=== PATIENT | male | born 1965 | race Caucasian/White ===

== ENCOUNTER 2024-08-22 16:56 | Emergency (ER) | payer MEDICARE, SELFPAY ==
--- OUTSIDE RECORDS SUMMARY | 2024-07-16 15:15 | XMS_ITS | Encounter Summary ---
Author Organization Healthcare Address [address] [place] [address] Care Team Providers Care Measurement Department Chief Clerk Name Role Phone Iain Yuen MD Primary Care Provider [phone] Reason for Visit * Reason Comments Uveitis Encounter Details Date Type Department Care Team (Late st Contact Info) Description 07/16/2024 3:15 PM EDT Consult [facility] [address] [place] [address] Millie Kothari MD [address] [place] [address] Panuveitis of both eyes (Primary Dx); Retinal vasculitis of both eyes; Cystoid macular edema of both eyes Social History Tobacco Use Types Packs/Day Years Used Date Smoking Tobacco: Every Day Cigarettes 1 30 Passive Smoke Exposure: Current Smokeless Tobacco: Never Tobacco Cessation:Ready to Q uit: Not Asked; Counseling Given: Not Answered Alcohol Use Standard Drinks/Week Comments Not Currently 0 (1 standard drink = 0.6 oz pur e alcohol) PHQ-2 Answer Date Recorded Patient Health Questionnaire-2 Score 0 12/17/2022 PHQ-2A Answer Date Recorded Patient Health Questionnaire-2 Score 0 12/17/2022 Sex and Gender Information Value Date Recorded Sex Assigned at Male 01/30/2021 11:09 PM EST Legal Sex Male 7:53 PM EDT Gender Identity Male 01/30/2021 11:09 PM EST Sexual Orientation Straight 01/30/2021 11 :09 PM EST documented as of this encounter Miscellaneous Notes * Patient Instructions - Millie Kothari MD - 07/16/2024 3:15 PM EDT Call or return to clinic with sudden worsening in eye pain, light sensitivity or vision. Other things to watch out for include sudden new floaters or worsening in existing floaters, flashes of light,spiderwebs or cobwebs in vision, or curtains coming down in vision. Consider going to the emergency room if you are unable to reach the clinic on the phone. Call [phone] and ask for the through operator electrical continuity tester if it is after hours or a weekend or holiday. * Progress Notes - Millie Kothari MD - 07/16/2024 3:15 PM EDT Retina Clinic Note CHIEF COMPLAINT Patient presents for Uveitis HISTORY OF PRESENT ILLNESS: Skyler Amin is a 59 y.o. male who presents to the clinic today for: HPI 59 year old male is in for a eye exam. Patient states his eyes are the same as his visit of 06/28/[address] Finn. States at times his eyes are still blurry. No floaters, flashes of light, or anything like that. No migraines. No glasses used, just readers Add+3.00. No use of eye drops. No issues, no complaints. Last edited by Rafa Haywood on 07/16/2024 2:22 PM. REVIEW OF SYSTEMS: ROS Positive for: Eyes Negative for: Constitutional, Gastrointestinal, Neurological, Skin, Genitourinary, Musculoskeletal,HENT, Endocrine, Cardiovascular, Respiratory, Psychiatric, Allergic/Imm, Heme/Lymph Last edited by Rafa Haywood on 07/16/2024 2:15 PM. Negative except for ROS Positive for: Eyes Negative for: Constitutional, Gastrointestinal, Neurological, Skin, Genitourinary, Musculoskeletal,HENT, Endocrine, Cardiovascular, Respiratory, Psychiatric, Allergic/Imm, Heme/Lymph Last edited by Rafa Haywood on 07/16/2024 2:15 PM. Referring physician: No referring provider defined for this encounter. HISTORICAL INFORMATION: Selected notes from the medical record: CURRENT MEDICATIONS: No current outpatient medications on file. (Ophthalmic Drugs) No current facility-administered medications for this visit. (Ophthalmic Drugs) Current Outpatient Medications (Other) Medication Sig ARIPiprazole (Abilify) 2 MG tablet Take 1 tablet (2 mg) by mouth 1 (one) time each day. ascorbic acid (Vitamin C) 500 MG tablet Take 1 tablet (500 mg) by mouth 1 (one) time each day. aspirin 325 MG tablet Take 1 tablet (325 mg) by mouth 1 (one) time each day. atorvastatin (Lipitor) 80 MG tablet Take 1 tablet by mouth daily. buPROPion XL (Wellbutrin XL) 150 MG 24 hr tablet Take 1 tablet by mouth daily. Do not crush, chew, or split. cholecalciferol (Vitamin D-3) 50 MCG (2000 UT) capsule Take 1 capsule (2,000 Units) by mouth 1 (one) time each day. citalopram (CeleXA) 40 MG tablet Take 1 tablet (40 mg) by mouth 1 (one) time each day. clopidogrel (Plavix) 75 MG tablet Take by mouth 1 (one) time each day. ezetimibe (Zetia) 10 MG tablet Take 1 tablet (10 mg) by mouth 1 (one) time each day. Zojsfyasboi-Sokrwnvoi-Cwcdca (Trelegy Ellipta) 200-62.5-25 MCG/INH aerosol powder if needed. folic acid (Folvite) 1 MG tablet Take 1 tablet (1,000 mcg) by mouth 1 (one) time each day. lisinopril-hydroCHLOROthiazide 10-12.5 MG tablet Take 1 tablet by mouth daily. methotrexate 2.5 MG tablet Take 10 tablets (25 mg total) by mouth 1 (one) time per week. Follow directions carefully, and ask to explain any part you do not understand. Take exactly as directed. Multiple Vitamin (multivitamin) tablet Take 1 tablet by mouth 1 (one) time each day. oxybutynin (Ditropan) 5 MG tablet Take 1 tablet by mouth 2 times a day. pantoprazole (Protonix) 40 MG EC tablet TAKE ONE TABLET BY MOUTH DAILY. DO NOT CRUSH, CHEW OR SPLIT. potassium chloride CR (Klor-Con) 10 MEQ ER tablet tamsulosin (Flomax) 0.4 MG 24 hr capsule Take 1 capsule (0.4 mg) by mouth 1 (one) time each day. triamcinolone (Kenalog) 0.5 % cream APPLY A THIN LAYER OF CREAM TOPICALLY TO AFFECTED AREA TWICE DAILY Adalimumab (Humira Pen) 40 MG/0.4ML Pen-injector Kit Inject 0.4 mL (40 mg) under the skin every 14 (fourteen) days. (Patient not taking: Reported on 07/16/2024) rosuvastatin (Crestor) 20 MG tablet Take 1 tablet (20 mg) by mouth every night. (Patient not taking: Reported on 07/16/2024) No current facility-administered medications for this visit. (Other) ALLERGIES Allergies[1] PAST MEDICAL HISTORY Medical History[2] Surgical History[3] FAMILY HISTORY Family History[4] SOCIAL HISTORY Social History[5] GENERAL EXAM: General Exam: Neuro: Alert and Oriented x 3, normal mood and affect OPHTHALMIC EXAM: Base Eye Exam Visual Acuity (Snellen - Linear) Right Left Dist sc 20/40 20/100 Dist ph sc 20/80 Tonometry (Tonopen, 2:34 PM) Right Left Pressure 13 11 Pupils Pupils Right PERRL Left PERRL Visual Anna (Counting fingers) Right Left Full Full Extraocular Movement Right Left Full, Ortho Full, Ortho Neuro/Psych Oriented x3: Yes Mood/Affect: Normal Dilation Both eyes: 1% Tropicamide @ 2:35 PM Slit Lamp and Fundus Exam External Exam Right Left External Normal Normal Slit Lamp Exam Right Left Lids/Lashes Normal for age Normal for age Conjunctiva/Sclera Normal Normal Cornea Clear Clear Anterior Chamber Deep and quiet Deep and quiet Iris Poor dilation Poor dilation Lens PCIOL PCIOL Anterior Vitreous Normal Normal Fundus Exam Right Left Posterior Vitreous inferior clumps, debris inferior clumps, debris Disc no edema, no vascularization, good color (Chris 78 d Lens) no edema, no vascularization, good color (Chris 78 d Lens) C/D Ratio .2 .2 Macula ERM Blunted reflex, ERM Vessels attenuated, washed out peripherally marked sheathing > veins attenuated, washed out peripherally Periphery flat and attached 360 degrees, peripheral IT ischemia, no neovascularization elsewhere (NVE), panretinal photocoagulation (PRP) peripherally flat and attached 360 degrees, peripheral IT ischemia, no NVE, few PRP scars IMAGING AND PROCEDURES OCT, Retina - OU - Both Eyes Right Eye Quality was good. Progression has been stable. Left Eye Quality was good. Progression has been stable. Notes right eye (OD): no CME, epiretinal membrane (ERM) left eye (OS): diffuse thickening vs CME, epiretinal membrane (ERM) OCT, Retina - OU - Both Eyes Right Eye Quality was good. Progression has been stable. Left Eye Quality was good. Progression has been stable. Notes right eye (OD): no CME, epiretinal membrane (ERM) left eye (OS): diffuse thickening vs CME, epiretinal membrane (ERM) VISIT DIAGNOSES 1. Panuveitis of both eyes OCT, Retina - OU - Both Eyes 2. Retinal vasculitis of both eyes 3. 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 Lares for blurred vision, who started oral steroids and initiated workup. - status post (s/p) Avastin 12/20/20, 05/02/2021, 05/30/2021 - status post (s/p) limited panretinal photocoagulation (PRP) left eye (OS) 01/31/21 05/02/21: new NVI right eye (OD) -> Status post (s/p) panretinal photocoagulation (PRP) right eye (OD) 09/13/21 - sp panretinal photocoagulation (PRP) right eye on 10/24/21. *of note, panretinal photocoagulation (PRP) very challenging secondary to cooperation, patient often moving, and cursing throughout procedure. Last visit with Dr. Rodríguez 12/05/21- continue IMT, needs more panretinal photocoagulation (PRP), repeat fluorescein angiography (FA) ROS: - Patient has history of multiple CVA at age of 40s, denies orogenital ulcers, rashs, joint pains -he does report that he had an ASD and HTN and hyperlipidemia that was undiagnosed at the time Workup: Autoimmune evaluation for vasculitis, lupus, sarcoid, Behcet's disease all came back negative. Infectious, malignancy, other SEASONAL CLERK etiology workup negative Imaging: - Carotid ultrasound negative - FA 04/06/20 showed extensive vasculitis with both occlusive component and periphlebitis - repeat fluorescein angiography (FA) 10/25/20 showed slight improvement with posterior pole leakageand small vessel leakage, but ultimately still with peripheral vasculitis, papillitis and neovascularization elsewhere (NVE) with non perfusion OS>OD. 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 Relatively quiet anterior chamber (AC) but with significant vitreous (vit) debris, and retinal thickening left eye (OS)>>right eye (OD) with ?cystoid macular edema (CME) vs traction and thick epiretinal membrane (ERM). Needs fluorescein angiography (FA) to determine activity level. Recheck 1-2 months at with FA Pseudophakia both eyes (OU) - s/p CEIOL OD 08/27/[address] Finn Explained the diagnoses, plan, and follow up with the patient and they expressed understanding. Patient expressed understanding of the importance of proper follow up care. Follow up for 1-2 months at with FA. Patient Instructions Call or return to clinic with sudden worsening in eye pain, light sensitivity or vision. Other things to watch out for include sudden new floaters or worsening in existing floaters, flashes of light,spiderwebs or cobwebs in vision, or curtains coming down in vision. Consider going to the emergency room if you are unable to reach the clinic on the phone. Call [phone] and ask for the through operator electrical continuity tester if it is after hours or a weekend or holiday. Electronically signed by: Millie Kothari MD 07/23/2024 8:41 AM Tobacco Cessation Initiative: Tobacco Use: High Risk (07/23/2024) Patient History Smoking Tobacco Use: Every Day Smokeless Tobacco Use: Never Passive Exposure: Current The patient has been counseled on tobacco cessation: Yes [1] No Known Allergies [2] Past Medical History: Diagnosis Date Cataract CME (cystoid macular edema), bilateral Epiretinal membrane (ERM) of both eyes Personal history of other diseases of the circulatory system History of hypertension Personal history of transient ischemic attack (TIA), and cerebral infarction without residual deficits History of cerebrovascular accident Retinal vasculitis Uveitis [3] Past Surgical History: Procedure Laterality Date CATARACT EXTRACTION W/ INTRAOCULAR LENS IMPLANT Bilateral 08/27/2021 HAND SURGERY Left Hand Surgery from [facility] OTHER SURGICAL HISTORY N/A History Of Prior Surgery from [facility] [4] Family History Problem Relation Name Age of Onset Cataracts Mother Diabetes Mother Hypertension Mother Stroke Mother Cataracts Father Stroke Father Cancer Mother's Brother Cancer Father's Brother [5] Social History Tobacco Use Smoking status: Every Day Current packs/day: 1.00 Average packs/day: 1 pack/day for 30.0 years (30.0 ttl pk-yrs) Types: Cigarettes Passive exposure: Current Smokeless tobacco: Never Vaping Use Vaping status: Never Used Substance Use Topics Alcohol use: Not Currently Drug use: Never documented in this encounter Plan of Treatment Upcoming Encounters Date Type Department Care Team (Late st Contact Info) Description 09/07/2024 1:15 PM EDT Office Visit [facility] [address] [place] [address] Millie Kothari MD [address] [phone] documented as of this encounter Procedures Procedure Name Priority Date/Time Associated Diagnosis Comments OCT, RETINA - OU - BOTH EYES Routine 07/23/2024 8:41 AM EDT Panuveitis of both eyes documented in this encounter Results * OCT, Retina - OU - Both Eyes (07/23/2024 8:41 AM EDT) Anatomical Region Laterality Modality Head Optical Coherenc e Tomography Narrative 07/23/2024 8:41 AM EDT Right Eye Quality was good. Progression has been stable. Left Eye Quality was good. Progression has been stable. 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
--- OUTSIDE RECORDS SUMMARY | 2024-07-23 08:45 | XMS_ITS | Encounter Summary ---
Author Organization [facility] Address [address] [place] [address] Care Team Providers Care Data Governance Analyst Name Role Phone Iain Yuen MD Primary Care Provider [phone] Encounter Details Date Type Department Care Team (Late st Contact Info) Description 07/23/2024 8:45 AM EDT Ancillary Procedure [facility] [address] [place] [address] Social History Tobacco Use Types Packs/Day Years Used Date Smoking Tobacco: Every Day Cigarettes 1 30 Passive Smoke Exposure: Current Smokeless Tobacco: Never Alcohol Use Standard Drinks/Week Comments Not Currently [...] PM EST documented as of this encounter Plan of Treatment Upcoming Encounters Date Type Department Care Team (Late st Contact Info) Description 09/07/2024 1:15 PM EDT Office Visit [facility] [address] [place] [address] Millie Kothari MD [address] [phone] documented as of this encounter Procedures Procedure [...] Result documented in this encounter Visit Diagnoses Not on filedocumented in this encounter Additional Health Concerns Assessment Noted Time A fall risk assessment has been complete d for the patient 07/16/2024 2:29 PM EDT A Body Mass Index follow-up plan has been documented for the patient 07/23/2024 8:42 AM EDT documented as of this encounter Care Teams Data Governance Analyst Relationship Specialty Start Date End Date Iain Yuen MD [address] [place] [address] PCP - General 07/14/20 documented as of this encounter
--- OUTSIDE RECORDS SUMMARY | 2024-08-09 12:08 | XMS_ITS | Continuity of Care Document ---
Author Organization [facility] Phone Care Team Providers Care Filler Mixer Name Role Phone ANNE COLE Unavailable AIME PEARSON Admitting ANNE COLE Primary Care AIME PEARSON Primary Attending ALLERGIES AND ADVERSE REACTIONS ALLERGIES AND ADVERSE REACTIONS Code System Allergy Substance Adverse Reaction Date Reaction (Severity) Comment Status Reported By Updated By No Known Allergies [email or web address] on July 29, 2024 12:13:53 PM UT ASSESSMENTS Weakness present ; Cerebrovascular accident ; Essential hypertension ; Hyperlipidemia ; Chronic obstructive pulmonary disease ; Community acquired pneumonia ; FAMILY HISTORY RELATION: Father Status: Cause of : Unknown Age at : Unknown SNOMED-CT Diagnosis Age At Onset [id number] Chronic obstructive lung disease [id number] 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 n [id number] Cerebrovascular accident RELATION: Mother Status: Cause of : Unknown Age at : Unknown SNOMED-CT Diagnosis Age At Onset [id number] Cerebrovascular accident [id number] Diabetes mellitus [id number] Hypertensive disorder PROBLEMS PATIENT PROBLEMS Code Description/Comments Category Status Up[place] By [id number] Weakness present active [id number] on July 28, 2024 11:30:50 AM UT [id number] Cerebrovascular accident active [id number] on July 29, 2024 6:23:22 PM UT [id number] Essential hypertension active dw [id number] on July 29, 2024 6:23:22 PM UT [id number] Hyperlipidemia active [id number] on July 29, 2024 6:23:22 PM UT [id number] Chronic obstructive pulmonary disease active [id number] on July 29 6:23:22 PM UT [id number] Community acquired pneumonia active [id number] on August 05, 2024 4:56:00 PM UTC RESULTS Patient: SAE Mcnally Date of : [birth year] 2 LABORATORY RESULTS ORDER 600: CBC AUTO W DIFF ( LOINC: 55678-6) ORDER DATE: July 28, 2024 4:17:00 AM UTC Specimen Source: EDTA Specimen Type: Blood specime n with EDTA PERFORMING LAB: [address] [id number] Result Comment: Final Result Date: July 28, 2024 4:25:00 AM UTC (TECH: [employer]) LOINC TEST FLAG RESULT REFERENCE RANGE UPDA YUE BY 6690-2 Leukocytes [#/volume] in Blood by Automated count H 17.2 K/ul 4.0 K/ul - 10.5 K/ul July 28, 2024 4:25:00 AM UTC (TECH: [employer]) 789-8 Erythrocytes [#/volume] in Blood by Automated count N 5.1 M/mm3 4.7 M/mm3 - 6.1 M/mm3 July 28, 2024 4:25:00 AM UTC (TECH: [employer]) 718-7 Hemoglobin [Mass/volume] in Blood N 15.2 gm/dl 13.5 gm/dl - 18.0 gm/dl July 28, 2024 4:25:00 AM UTC (TECH: [employer]) 71382-1 Hematocrit [Volume Fraction] of Blood N 45.2 % 42.0 % - 52.0 % July 28, 2024 4:25:00 AM UTC (TECH: [employer]) 787-2 Erythrocyte mean corpuscular volume [Entitic volume] by Automated count N 88.6 fl 78 fl - 100 fl July 28, 2024 4:25:00 AM UTC (TECH: [employer]) 785-6 Erythrocyte mean corpuscular hemoglobin [Entitic mass] by Automated count N 29.8 pg 27 pg - 31 pg July 28, 2024 4:25:00 AM UTC (TECH: [employer]) 786-4 Erythrocyte mean corpuscular hemoglobin concentration [Mass/volume] by Automated count N 33.6 g/dl 32 g/dl - 36 g/dl July 28, 2024 4:25:00 AM UTC (TECH: [employer]) 75618-7 Erythrocyte distribution width [Ratio] N 13.2 % 11.5 % - 14.0 % July 28, 2024 4:25:00 AM UTC ([facility]: [employer]) 777-3 Platelets [#/volume] in Blood by Automated count N 278 K/ul 150 K/ul - 450 K/ul July 28, 2024 4:25:00 AM UTC ([facility]: [employer]) 47461-3 Platelet mean volume [Entitic volume] in Blood by Automated count H 10.7 fl 6 fl - 9.5 fl July 28, 2024 4:25:00 AM UTC ([facility]: [employer]) 47204-9 Neutrophils/100 leukocytes in Blood H 75.8 % 43 % - 65 % July 28, 2024 4:25:00 AM UTC ([facility]: [employer]) 736-9 Lymphocytes/100 leukocytes in Blood by Automated count L 14.9 % 20.5 % - 45.5 % July 28, 2024 4:25:00 AM UTC ([facility]: [employer]) 5905-5 Monocytes/100 leukocytes in Blood by Automated count N 7.2 % 5.5 % - 11.7 % July 28, 2024 4:25:00 AM UTC ([employer]) 713-8 Eosinophils/100 leukocytes in Blood by Automated count N 1.3 % 0.9 % - 2.9 % July 28, 2024 4:25:00 AM UTC ([facility]: [employer]) 706-2 Basophils/100 leukocytes in Blood by Automated count N 0.5 % 0.2 % - 1.0 % July 28, 2024 4:25:00 AM UTC ([facility]: [employer]) 82117-0 Immature granulocytes/100 leukocytes in Blood by Automated count N 0.3 % 0.0 % - 0.8 % July 28, 2024 4:25:00 AM UTC ([facility]: [employer]) 07300-5 Nucleated cells [#/volume] in Blood N 0.0 % July 28, 2024 4:25:00 AM UTC (TECH: [employer]) 21482-6 Neutrophils [#/volume] in Blood H 13.0 K/uL 2.2 K/uL - 4.8 K/uL July 28, 2024 4:25:00 AM UTC (TECH: [employer]) 731-0 Lymphocytes [#/volume] in Blood by Automated count N 2.6 CELL/MCL 1.3 CELL/MCL - 2.9 CELL/MCL July 28, 2024 4:25:00 AM UTC (TECH: [place]) 742-7 Monocytes [#/volume] in Blood by Automated count H 1.2 CELL/MCL 0.3 CELL/MCL - 0.8 CELL/MCL July 28, 2024 4:25:00 AM UTC (TECH: [place]) 711-2 Eosinophils [#/volume] in Blood by Automated count N 0.2 CELL/MCL 0 CELL/MCL - 0.2 CELL/MCL July 28, 2024 4:25:00 AM UTC (TECH: [place]) 704-7 Basophils [#/volume] in Blood by Automated count N 0.1 CELL/MCL 0.0 CELL/MCL - 1.0 CELL/MCL July 28, 2024 4:25:00 AM [place] (TECH: [place]) 48379-2 Immature granulocytes [#/volume] in Blood N 0.06 K/ul July 28, 2024 4:25:00 AM [facility] (TECH: [place]) 83061-7 Nucleated cells [#/volume] in Blood N 0.00 K/uL July 28, 2024 4:25:00 AM [facility] (TECH: [place]) 50837-8 Manual Differential panel - Blood N NO July 28, 2024 4:25:00 AM [facility] (TECH: [place]) ORDER 700: COMP METABOLIC PA LAUREN (LOINC: 33021-9) ORDER DATE: July 28, 2024 4:17:00 AM [facility] Specimen Source: PLASMA Specimen Type: Plasma specim en PERFORMING LAB: [address] [id number] Result Comment: Final Result Date: July 28, 2024 4:42:00 AM [facility] (TECH: [employer]) LOINC TEST FLAG RESULT REFERENCE RANGE UPDA YUE BY 2951-2 Sodium [Moles/volume ] in Serum or Plasma L 135 mmol/L 136 mmol/L - 145 mmol/L July 28, 2024 4:42:00 AM [facility] (TECH: [place]) 2823-3 Potassium [Moles/volume] in Serum or Plasma N 3.9 mmol/L 3.6 mmol/L - 5.0 mmol/L July 28, 2024 4:42:00 AM [facility] (TECH: [place]) 2075-0 Chloride [Moles/volume] in Serum or Plasma L 97 mmol/L 98 mmol/L - 107 mmol/L July 28, 2024 4:42:00 AM UT (TECH: [employer]) 2027-9 Carbon dioxide, tota l [Moles/volume] in Serum or Plasma N 31.4 mmol/L 21.0 mmol/L - 32.0 mmol/L July 28, 2024 4:42:00 AM UTC (TECH: [employer]) 09313-4 Anion gap in Blood N 10.5 M 2024 4:42:00 AM UTC (TECH: [employer]) 2345-7 Glucose [Mass/volume ] in Serum or Plasma N 107 mg/dl 70 mg/dl - 120 mg/dl July 28, 2024 4:42:00 AM UT (TECH: [employer]) 6299-2 Urea nitrogen [Mass/volume] in Blood N 12 mg/dL 7 mg/dL - 18 mg/dL July 28, 2024 4:42:00 AM UT (TECH: [employer]) 50011-8 Creatinine [Moles/volume] in Blood N 1.3 mg/dL 0.6 mg/dL - 1.3 mg/dL July 28, 2024 4:42:00 AM UT (TECH: [employer]) 13822-2 Glomerular filtratio n rate/1.73 sq M.predicted by Creatinine-based formula (MDRD) N 64 mlpermin 60 mlpermin July 28, 2024 4:42:00 AM UT (TECH: [employer]) 70921-3 Osmolality of Serum or Plasma by calculated by sum of electrolytes N 281 mosm/kg 275 mosm/kg - 301 mosm/kg July 28, 2024 4:42:00 AM UT (TECH: [employer]) 2885-2 Protein [Mass/volume ] in Serum or Plasma H 8.3 g/dl 6.4 g/dl - 8.2 g/dl July 28, 2024 4:42:00 AM UT (TECH: [employer]) 1751-7 Albumin [Mass/volume ] in Serum or Plasma N 4.3 g/dl 3.4 g/dl - 5.0 g/dl July 28, 2024 4:42:00 AM UTC (TECH: [employer]) 2336-6 Globulin [Mass/volum e] in Serum N 4.0 July 28, 2024 4:42:00 AM UT (TECH: [employer]) 1759-0 Albumin/Globulin [Ma ss Ratio] in Serum or Plasma N 1.1 0.7 - 2 July 28, 2024 4:42:00 AM [facility] (TECH: [place]) 05353-0 Calcium [Mass/volume ] in Serum or Plasma N 9.6 mg/dl 8.5 mg/dl - 10.5 mg/dl July 28, 2024 4:42:00 AM [facility] (TECH: [employer]) 1975-2 Bilirubin.total [Mass/volume] in Serum or Plasma H 1.10 mg/dL 0.10 mg/dL - 1.00 mg/dL July 28, 2024 4:42:00 AM [facility] (TECH: [employer]) 1920-8 Aspartate aminotransferase [Enzymatic activity/volume] in Serum or Plasma N 21 U/L 0 U/L - 37 U/L July 28, 2024 4:42:00 AM [facility] (TECH: [employer]) 1742-6 Alanine aminotransferase [Enzymatic activity/volume] in Serum or Plasma N 36 U/L 0 U/L - 65 U/L July 28, 2024 4:42:00 AM [facility] (TECH: [employer]) 6768-6 Alkaline phosphatase [Enzymatic activity/volume] in Serum or Plasma H 135 U/L 46 U/L - 116 U/L July 28, 2024 4:42:00 AM [facility] (TECH: [employer]) ORDER 800: PT PROTHROMBIN TI ME W INR (LOINC: 59021-2) ORDER DATE: July 28, 2024 4:17:00 AM [facility] Specimen Source: PLASMA Specimen Type: Plasma specim en PERFORMING LAB: [address] [id number] Result Comment: Final Result Date: July 28, 2024 4:38:00 AM [facility] (TECH: [employer]) LOINC TEST FLAG [place] [address]-4 INR in Platelet poor plasma or blood by Coagulation assay N 10.4 SECONDS 9.3 SECONDS - 11.4 SECONDS July 28, 2024 4:38:00 AM [facility] (TECH: [place]) 6301-6 INR in Platelet poor plasma by Coagulation assay N 1.0 Ratio 0.97 Ratio - 1.05 Ratio July 28, 2024 4:38:00 AM [facility] (TECH: [place]) ORDER 900: PTT PARTIAL THROM B TIME (LOINC: 3173-2) ORDER DATE: July 28, 2024 4:17:00 AM UT Specimen Source: PLASMA Specimen Type: Plasma specim en PERFORMING LAB: [address] [id number] Result Comment: Final Result Date: July 28, 2024 4:38:00 AM UT (TECH: [place]) LOINC TEST FLAG RESULT REFERENCE RANGE UPDA YUE BY 3173-2 Activated partial thromboplastin time (aPTT) in Blood by Coagulation assay N 28.4 SECONDS 24.5 SECONDS - 32.8 SECONDS July 28, 2024 4:38:00 AM UT (TECH: [place]) ORDER 1000: TROPONIN I QUANT HIGH SENS. (LOINC: 18038-3) ORDER DATE: July 28, 2024 4:17:00 AM UT Specimen Source: PLASMA Specimen Type: Plasma specim en PERFORMING LAB: [address] [id number] Result Comment: Final Result Date: July 28, 2024 5:01:00 AM [facility] (TECH: [place]) LOINC TEST [place] [address]-8 Troponin I.cardiac [Mass/volume] in Serum or Plasma N 6 ng/L 0 ng/L - 76 ng/L July 28, 2024 5:01:00 AM [facility] (TECH: [place]) ORDER 1100: ALCOHOL QUANT (L OINC: 5643-2) ORDER DATE: July 28, 2024 4:51:00 AM UT Specimen Source: PLASMA Specimen Type: Plasma specim en PERFORMING LAB: [address] [id number] Result Comment: Final Result Date: July 28, 2024 5:01:00 AM [facility] (TECH: [place]) LOINC TEST FLAG RESULT REFERENCE RANGE UPDA YUE BY 5643-2 Ethanol [Mass/volume] in Serum or Plasma N <3 MG/DL 0 MG/DL - 50 MG/DL July 28, 2024 5:01:00 AM [facility] (TECH: [employer]) ORDER 1700: LIPID PANEL (JOCELYNE NC: 14545-5) ORDER DATE: July 28, 2024 11:32:00 AM UT Specimen Source: PLASMA Specimen Type: Plasma specim en PERFORMING LAB: [address] [id number] Result Comment: Final Result Date: July 28, 2024 12:21:00 PM UTC (TECH: ARR) LOINC TEST FLAG RESULT REFERENCE RANGE UPDA YUE BY 2571-8 Triglyceride [Mass/volume] in Serum or Plasma N 63 mg/dl 30 mg/dl - 200 mg/dl July 28, 2024 12:21:00 PM UTC (TECH: ARR) 2093-3 Cholesterol [Mass/volume] in Serum or Plasma N 157 mg/dl 0 mg/dl - 200 mg/dl July 28, 2024 12:21:00 PM UTC (TECH: ARR) 05179-8 Cholesterol in HDL [Mass or Moles/volume] in Serum or Plasma N 51 mg/dL 40 mg/dL - 104 mg/dL July 28, 2024 12:21:00 PM UTC (TECH: ARR) 61868-5 Cholesterol in LDL [Mass/volume] in Serum or Plasma by calculation N 93 mg/dL 0 mg/dL - 130 mg/dL July 28, 2024 12:21:00 PM UTC (TECH: ARR) ORDER 1800: HEMOGLOBIN A1C ( LOINC: 4548-4) ORDER DATE: July 28, 2024 11:32:00 AM UTC Specimen Source: WHOLE BLOOD Specimen Type: Whole blood s ample PERFORMING LAB: [address] [id number] Result Comment: Final Result Date: July 28, 2024 12:21:00 PM UTC (TECH: ARR) LOINC TEST FLAG RESULT REFERENCE RANGE UPDA YUE BY 4548-4 Hemoglobin A1c/Hemoglobin.tota l in Blood H 5.8 % 3.8 % - 5.6 % July 28, 2024 12:21:00 PM UTC (TECH: ARR) ORDER 2400: RESPIRATORY PANE L RP (LOINC: 87493-3) ORDER DATE: July 28, 2024 3:03:00 PM UTC Specimen Source: [employer] SWAB Specimen Type: Nasopharyngea l airway insertion PERFORMING LAB: [address] [id number] Result Comment: Final Result Date: July 28, 2024 4:19:00 PM UTC (TECH: TGD) LOINC TEST FLAG [place] [address]-2 Adenovirus DNA [Presence] in Nasopharynx by Target amplification with non-probe based detection N NOT DETECTED NOT DETECTED July 28, 2024 4:19:00 PM UTC (TECH: TGD) 89470-9 Bordetella parapertussis XL2131 DNA [Presence] in Nasopharynx by SHEILA with non-probe detection N NOT DETECTED NOT DETECTED July 28, 2024 4:19:00 PM UTC (TECH: TGD) 91686-6 Human coronavirus 22 9E RNA [Presence] in Nasopharynx by Target amplification with non-probe based detection N NOT DETECTED NOT DETECTED July 28, 2024 4:19:00 PM UTC (TECH: TGD) 48307-2 Human coronavirus HK U1 RNA [Presence] in Nasopharynx by Target amplification with non-probe based detection N NOT DETECTED NOT DETECTED July 28, 2024 4:19:00 PM UTC (TECH: TGD) 87156-3 Human coronavirus NL 63 RNA [Presence] in Nasopharynx by Target amplification with non-probe based detection N NOT DETECTED NOT DETECTED July 28, 2024 4:19:00 PM UTC (TECH: TGD) 20417-1 Human coronavirus OC 43 RNA [Presence] in Nasopharynx by Target amplification with non-probe based detection N NOT DETECTED NOT DETECTED July 28, 2024 4:19:00 PM UTC (TECH: TGD) 13078-8 Human metapneumoviru s RNA [Presence] in Nasopharynx by Target amplification with non-probe based detection N NOT DETECTED NOT DETECTED July 28, 2024 4:19:00 PM UTC (TECH: TGD) 12598-0 Rhinovirus+Enterovir us RNA [Presence] in Nasopharynx by Target amplification with non-probe based detection N NOT DETECTED NOT DETECTED July 28, 2024 4:19:00 PM UTC (TECH: TGD) 04695-2 Influenza virus A RN A [Presence] in Nasopharynx by Target amplification with non-probe based detection N NOT DETECTED NOT DETECTED July 28, 2024 4:19:00 PM UTC (TECH: TGD) 23547-1 Influenza virus A H1 RNA [Presence] in Nasopharynx by Target amplification with non-probe based detection N N/A NOT DETECTED July 28, 2024 4:19:00 PM UTC (TECH: TGD) 49036-1 Influenza virus A H1 2009 pandemic RNA [Presence] in Nasopharynx by Target amplification with non-probe based detection N N/A NOT DETECTED July 28, 2024 4:19:00 PM UTC (TECH: TGD) 12121-2 Influenza virus A H3 RNA [Presence] in Nasopharynx by Target amplification with non-probe based detection N N/A NOT DETECTED July 28, 2024 4:19:00 PM UTC (TECH: TGD) 65015-1 Influenza virus B RN A [Presence] in Nasopharynx by Target amplification with non-probe based detection N NOT DETECTED NOT DETECTED July 28, 2024 4:19:00 PM UTC (TECH: TGD) 35842-2 Parainfluenza virus 1 RNA [Presence] in Nasopharynx by Target amplification with non-probe based detection N NOT DETECTED NOT DETECTED July 28, 2024 4:19:00 PM UTC (TECH: TGD) 35387-2 Parainfluenza virus 2 RNA [Presence] in Nasopharynx by Target amplification with non-probe based detection N NOT DETECTED NOT DETECTED July 28, 2024 4:19:00 PM UTC (TECH: TGD) 40358-4 Parainfluenza virus 3 RNA [Presence] in Nasopharynx by Target amplification with non-probe based detection N NOT DETECTED NOT DETECTED July 28, 2024 4:19:00 PM UTC (TECH: TGD) 20670-1 Parainfluenza virus 4 RNA [Presence] in Nasopharynx by Target amplification with non-probe based detection N NOT DETECTED NOT DETECTED July 28, 2024 4:19:00 PM UTC (TECH: TGD) 18628-5 Respiratory syncytia l virus RNA [Presence] in Nasopharynx by Target amplification with non-probe based detection N NOT DETECTED NOT DETECTED July 28, 2024 4:19:00 PM UTC (TECH: TGD) 99808-5 Bordetella pertussis toxin promoter region [Presence] in Nasopharynx by Target amplification with non-probe based detection N NOT DETECTED NOT DETECTED July 28, 2024 4:19:00 PM UTC (TECH: TGD) 44264-5 Chlamydophila pneumoniae DNA [Presence] in Nasopharynx by Target amplification with non-probe based detection N NOT DETECTED NOT DETECTED July 28, 2024 4:19:00 PM UTC (TECH: TGD) 18755-1 Mycoplasma pneumonia e DNA [Presence] in Nasopharynx by Target amplification with non-probe based detection N NOT DETECTED NOT DETECTED July 28, 2024 4:19:00 PM UTC (TECH: TGD) 65172-1 SARS-CoV-2 (COVID-19 ) RNA [Presence] in Nasopharynx by SHEILA with non-probe detection N NOT DETECTED NOT DETECTED July 28, 2024 4:19:00 PM UTC (TECH: TGD) ORDER 3000: GLUCOSE BEDSIDE TESTING (LOINC: 08823-3) ORDER DATE: July 28, 2024 8:05:00 PM UTC Specimen Source: WHOLE BLOOD Specimen Type: Whole blood s ample PERFORMING LAB: [address] [id number] Result Comment: July 28, 2024 8:22:00 PM UTC Test performed by: [id number] ; Instrument: [id number] Final Result Date: July 28, 2024 8:22:00 PM UTC LOINC TEST FLAG [place] [address]-4 Glucose [Mass/volume] in Capillary blood by Glucometer N 90 mg/dl 70 mg/dl - 105 mg/dl July 28, 2024 8:22:00 PM UTC ORDER 3100: GLUCOSE BEDSIDE TESTING (LOINC: 26105-0) ORDER DATE: July 29, 2024 3:49:00 AM UTC Specimen Source: WHOLE BLOOD Specimen Type: Whole blood s ample PERFORMING LAB: [address] [id number] Result Comment: July 29, 2024 4:04:00 AM UTC Test performed by: [id number] ; Instrument: [id number] Final Result Date: July 29, 2024 4:04:00 AM UTC LOINC TEST FLAG [place] [address]-0 Glucose [Mass/volume] in Capillary blood by Glucometer N 96 mg/dl 70 mg/dl - 105 mg/dl July 29, 2024 4:04:00 AM UTC ORDER 3400: PROCALCITONIN (L OINC: 79453-2) ORDER DATE: July 29, 2024 4:42:00 AM UTC Specimen Source: PLASMA Specimen Type: Plasma specim en PERFORMING LAB: [address] [id number] Result Comment: Final Result Date: July 29, 2024 10:06:00 AM UT (TECH: AAC) LOINC TEST FLAG [place] [address]-6 Procalcitonin [Mass/volume] in Serum or Plasma by Immunoassay N <0.05 ng/mL 0.00 ng/mL - 0.5 ng/mL July 29, 2024 10:06:00 AM UT (TECH: AAC) ORDER 3500: C-REACTIVE PROTE IN CRP (LOINC: 1987-07) ORDER DATE: July 29, 2024 4:42:00 AM UT Specimen Source: PLASMA Specimen Type: Plasma specim en PERFORMING LAB: [address] [id number] Result Comment: Final Result Date: July 29, 2024 9:57:00 AM UT (TECH: ARR) LOINC TEST FLAG RESULT REFERENCE RANGE UPDA YUE BY 1987-07 C reactive protein [Mass/volume] in Serum or Plasma H 2.6 mg/dL 0.05 mg/dL - 0.300 mg/dL July 29, 2024 9:57:00 AM UT (TECH: ARR) ORDER 3600: LIPID PANEL (JOCELYNE NC: 04335-9) ORDER DATE: July 29, 2024 4:55:00 AM UT Specimen Source: PLASMA Specimen Type: Plasma specim en PERFORMING LAB: [address] [id number] Result Comment: Final Result Date: July 29, 2024 10:19:00 AM UT (TECH: ARR) LOINC TEST FLAG RESULT REFERENCE RANGE UPDA YUE BY 2571-8 Triglyceride [Mass/volume] in Serum or Plasma N 45 mg/dl 30 mg/dl - 200 mg/dl July 29, 2024 10:19:00 AM UTC (TECH: ARR) 2093-3 Cholesterol [Mass/volume] in Serum or Plasma N 142 mg/dl 0 mg/dl - 200 mg/dl July 29, 2024 10:19:00 AM UTC (TECH: ARR) 36847-9 Cholesterol in HDL [Mass or Moles/volume] in Serum or Plasma N 51 mg/dL 40 mg/dL - 104 mg/dL July 29, 2024 10:19:00 AM UT (TECH: ARR) 57603-3 Cholesterol in LDL [Mass/volume] in Serum or Plasma by calculation N 82 mg/dL 0 mg/dL - 130 mg/dL July 29, 2024 10:19:00 AM UT (TECH: ARR) ORDER 3701: CBC AUTO W DIFF (LOINC: 72361-5) ORDER DATE: July 29, 2024 4:56:00 AM UT Specimen Source: EDTA Specimen Type: Blood specime n with EDTA PERFORMING LAB: [address] [id number] Result Comment: Final Result Date: July 29, 2024 9:34:00 AM UT (TECH: AAC) LOINC TEST FLAG RESULT REFERENCE RANGE UPDA YUE BY 6690-2 Leukocytes [#/volume] in Blood by Automated count N 10.1 K/ul 4.0 K/ul - 10.5 K/ul July 29, 2024 9:34:00 AM UT (TECH: AAC) 789-8 Erythrocytes [#/volume] in Blood by Automated count N 4.7 M/mm3 4.7 M/mm3 - 6.1 M/mm3 July 29, 2024 9:34:00 AM UT (TECH: AAC) 718-7 Hemoglobin [Mass/volume] in Blood N 14.1 gm/dl 13.5 gm/dl - 18.0 gm/dl July 29, 2024 9:34:00 AM UTC (TECH: AAC) 59689-0 Hematocrit [Volume Fraction] of Blood L 41.8 % 42.0 % - 52.0 % July 29, 2024 9:34:00 AM UTC (TECH: AAC) 787-2 Erythrocyte mean corpuscular volume [Entitic volume] by Automated count N 88.6 fl 78 fl - 100 fl July 29, 2024 9:34:00 AM UTC (TECH: AAC) 785-6 Erythrocyte mean corpuscular hemoglobin [Entitic mass] by Automated count N 29.9 pg 27 pg - 31 pg July 29, 2024 9:34:00 AM UTC (TECH: AAC) 786-4 Erythrocyte mean corpuscular hemoglobin concentration [Mass/volume] by Automated count N 33.7 g/dl 32 g/dl - 36 g/dl July 29, 2024 9:34:00 AM UTC (TECH: AAC) 13523-9 Erythrocyte distribution width [Ratio] N 13.3 % 11.5 % - 14.0 % July 29, 2024 9:34:00 AM UTC (TECH: AAC) 777-3 Platelets [#/volume] in Blood by Automated count N 241 K/ul 150 K/ul - 450 K/ul July 29, 2024 9:34:00 AM UTC (TECH: AAC) 64057-4 Platelet mean volume [Entitic volume] in Blood by Automated count H 10.9 fl 6 fl - 9.5 fl July 29, 2024 9:34:00 AM UTC (TECH: AAC) 72959-9 Neutrophils/100 leukocytes in Blood H 66.5 % 43 % - 65 % July 29, 2024 9:34:00 AM UTC (TECH: AAC) 736-9 Lymphocytes/100 leukocytes in Blood by Automated count L 19.9 % 20.5 % - 45.5 % July 29, 2024 9:34:00 AM UTC (TECH: AAC) 5905-5 Monocytes/100 leukocytes in Blood by Automated count N 10.0 % 5.5 % - 11.7 % July 29, 2024 9:34:00 AM UTC (TECH: AAC) 713-8 Eosinophils/100 leukocytes in Blood by Automated count N 2.9 % 0.9 % - 2.9 % July 29, 2024 9:34:00 AM UTC (TECH: AAC) 706-2 Basophils/100 leukocytes in Blood by Automated count N 0.5 % 0.2 % - 1.0 % July 29, 2024 9:34:00 AM UTC (TECH: AAC) 87382-6 Immature granulocytes/100 leukocytes in Blood by Automated count N 0.2 % 0.0 % - 0.8 % July 29, 2024 9:34:00 AM UTC (TECH: AAC) 60737-4 Nucleated cells [#/volume] in Blood N 0.0 % July 29, 2024 9:34:00 AM UTC (TECH: AAC) 91384-7 Neutrophils [#/volume] in Blood H 6.7 K/uL 2.2 K/uL - 4.8 K/uL July 29, 2024 9:34:00 AM UTC (TECH: AAC) 731-0 Lymphocytes [#/volume] in Blood by Automated count N 2.0 CELL/MCL 1.3 CELL/MCL - 2.9 CELL/MCL July 29, 2024 9:34:00 AM UTC (TECH: AAC) 742-7 Monocytes [#/volume] in Blood by Automated count H 1.0 CELL/MCL 0.3 CELL/MCL - 0.8 CELL/MCL July 29, 2024 9:34:00 AM UTC (TECH: AAC) 711-2 Eosinophils [#/volume] in Blood by Automated count H 0.3 CELL/MCL 0 CELL/MCL - 0.2 CELL/MCL July 29, 2024 9:34:00 AM UTC (TECH: AAC) 704-7 Basophils [#/volume] in Blood by Automated count N 0.1 CELL/MCL 0.0 CELL/MCL - 1.0 CELL/MCL July 29, 2024 9:34:00 AM UTC (TECH: AAC) 41467-3 Immature granulocytes [#/volume] in Blood N 0.02 K/ul July 29, 2024 9:34:00 AM UTC (TECH: AAC) 94127-7 Nucleated cells [#/volume] in Blood N 0.00 K/uL July 29, 2024 9:34:00 AM UT (TECH: AAC) 57145-4 Manual Differential panel - Blood N NO July 29, 2024 9:34:00 AM UT (TECH: AAC) ORDER 3702: CBC AUTO W DIFF (LOINC: 46217-1) ORDER DATE: July 29, 2024 4:56:00 AM UT Specimen Source: EDTA Specimen Type: Blood specime n with EDTA PERFORMING LAB: [facility] [address] [facility] [id number] Result Comment: Final Result Date: July 30, 2024 11:38:00 AM UT (TECH: TGD) LOINC TEST FLAG RESULT REFERENCE RANGE UPDA YUE BY 6690-2 Leukocytes [#/volume] in Blood by Automated count H 10.6 K/ul 4.0 K/ul - 10.5 K/ul July 30, 2024 11:38:00 AM UTC (TECH: TGD) 789-8 Erythrocytes [#/volume] in Blood by Automated count L 4.1 M/mm3 4.7 M/mm3 - 6.1 M/mm3 July 30, 2024 11:38:00 AM UTC (TECH: TGD) 718-7 Hemoglobin [Mass/volume] in Blood L 12.2 gm/dl 13.5 gm/dl - 18.0 gm/dl July 30, 2024 11:38:00 AM UTC (TECH: TGD) 02374-4 Hematocrit [Volume Fraction] of Blood L 36.0 % 42.0 % - 52.0 % July 30, 2024 11:38:00 AM UTC (TECH: TGD) 787-2 Erythrocyte mean corpuscular volume [Entitic volume] by Automated count N 88.0 fl 78 fl - 100 fl July 30, 2024 11:38:00 AM UTC (TECH: TGD) 785-6 Erythrocyte mean corpuscular hemoglobin [Entitic mass] by Automated count N 29.8 pg 27 pg - 31 pg July 30, 2024 11:38:00 AM UTC (TECH: TGD) 786-4 Erythrocyte mean corpuscular hemoglobin concentration [Mass/volume] by Automated count N 33.9 g/dl 32 g/dl - 36 g/dl July 30, 2024 11:38:00 AM UTC (TECH: TGD) 08942-6 Erythrocyte distribution width [Ratio] N 13.0 % 11.5 % - 14.0 % July 30, 2024 11:38:00 AM UTC (TECH: TGD) 777-3 Platelets [#/volume] in Blood by Automated count N 210 K/ul 150 K/ul - 450 K/ul July 30, 2024 11:38:00 AM UTC (TECH: TGD) 18439-9 Platelet mean volume [Entitic volume] in Blood by Automated count H 11.0 fl 6 fl - 9.5 fl July 30, 2024 11:38:00 AM UTC (TECH: TGD) 99003-4 Neutrophils/100 leukocytes in Blood H 70.0 % 43 % - 65 % July 30, 2024 11:38:00 AM UTC (TECH: TGD) 736-9 Lymphocytes/100 leukocytes in Blood by Automated count L 16.4 % 20.5 % - 45.5 % July 30, 2024 11:38:00 AM UTC (TECH: TGD) 5905-5 Monocytes/100 leukocytes in Blood by Automated count N 9.1 % 5.5 % - 11.7 % July 30, 2024 11:38:00 AM UTC (TECH: TGD) 713-8 Eosinophils/100 leukocytes in Blood by Automated count H 3.6 % 0.9 % - 2.9 % July 30, 2024 11:38:00 AM UTC (TECH: TGD) 706-2 Basophils/100 leukocytes in Blood by Automated count N 0.5 % 0.2 % - 1.0 % July 30, 2024 11:38:00 AM UTC (TECH: TGD) 14138-0 Immature granulocytes/100 leukocytes in Blood by Automated count N 0.4 % 0.0 % - 0.8 % July 30, 2024 11:38:00 AM UTC (TECH: TGD) 57470-8 Nucleated cells [#/volume] in Blood N 0.0 % July 30, 2024 11:38:00 AM UTC (TECH: TGD) 43306-9 Neutrophils [#/volume] in Blood H 7.4 K/uL 2.2 K/uL - 4.8 K/uL July 30, 2024 11:38:00 AM UTC (TECH: TGD) 731-0 Lymphocytes [#/volume] in Blood by Automated count N 1.7 CELL/MCL 1.3 CELL/MCL - 2.9 CELL/MCL July 30, 2024 11:38:00 AM UTC (TECH: TGD) 742-7 Monocytes [#/volume] in Blood by Automated count H 1.0 CELL/MCL 0.3 CELL/MCL - 0.8 CELL/MCL July 30, 2024 11:38:00 AM UTC (TECH: TGD) 711-2 Eosinophils [#/volume] in Blood by Automated count H 0.4 CELL/MCL 0 CELL/MCL - 0.2 CELL/MCL July 30, 2024 11:38:00 AM UTC (TECH: TGD) 704-7 Basophils [#/volume] in Blood by Automated count N 0.1 CELL/MCL 0.0 CELL/MCL - 1.0 CELL/MCL July 30, 2024 11:38:00 AM UTC (TECH: TGD) 15046-3 Immature granulocytes [#/volume] in Blood N 0.04 K/ul July 30, 2024 11:38:00 AM UTC (TECH: TGD) 95788-5 Nucleated cells [#/volume] in Blood N 0.00 K/uL July 30, 2024 11:38:00 AM UTC (TECH: TGD) 28216-5 Manual Differential panel - Blood N NO July 30, 2024 11:38:00 AM UTC (TECH: TGD) ORDER 3801: BASIC METABOLIC PANEL (LOINC: 42890-3) ORDER DATE: July 29, 2024 4:56:00 AM UTC Specimen Source: PLASMA Specimen Type: Plasma specim en PERFORMING LAB: [address] [id number] Result Comment: Final Result Date: July 29, 2024 9:58:00 AM UTC (TECH: ARR) LOINC TEST FLAG RESULT REFERENCE RANGE UPDA YUE BY 2951-2 Sodium [Moles/volume] in Serum or Plasma N 136 mmol/L 136 mmol/L - 145 mmol/L July 29, 2024 9:58:00 AM UTC (TECH: ARR) 2823-3 Potassium [Moles/volume] in Serum or Plasma N 3.7 mmol/L 3.6 mmol/L - 5.0 mmol/L July 29, 2024 9:58:00 AM UTC (TECH: ARR) 2075-0 Chloride [Moles/volume] in Serum or Plasma N 100 mmol/L 98 mmol/L - 107 mmol/L July 29, 2024 9:58:00 AM UTC (TECH: ARR) 8-9 Carbon dioxide, total [Moles/volume] in Serum or Plasma N 25.8 mmol/L 21.0 mmol/L - 32.0 mmol/L July 29, 2024 9:58:00 AM UTC (TECH: ARR) 34712-8 Anion gap in Blood N 13.9 M 2024 9:58:00 AM UTC (TECH: ARR) 2345-7 Glucose [Mass/volume] in Serum or Plasma N 93 mg/dl 70 mg/dl - 120 mg/dl July 29, 2024 9:58:00 AM UT (TECH: ARR) 6299-2 Urea nitrogen [Mass/volume] in Blood H 19 mg/dL 7 mg/dL - 18 mg/dL July 29, 2024 9:58:00 AM UT (TECH: ARR) 40035-2 Creatinine [Moles/volume] in Blood N 1.0 mg/dL 0.6 mg/dL - 1.3 mg/dL July 29, 2024 9:58:00 AM UT (TECH: ARR) 99270-5 Glomerular filtration rate/1.73 sq M.predicted by Creatinine-based formula (MDRD) N 87 mlpermin 60 mlpermin July 29, 2024 9:58:00 AM UT (TECH: ARR) 68781-3 Osmolality of Serum or Plasma by calculated by sum of electrolytes N 285 mosm/kg 275 mosm/kg - 301 mosm/kg July 29, 2024 9:58:00 AM UT (TECH: ARR) 77429-9 Calcium [Mass/volume] in Serum or Plasma N 8.9 mg/dl 8.5 mg/dl - 10.5 mg/dl July 29, 2024 9:58:00 AM UT (TECH: ARR) ORDER 3802: BASIC METABOLIC PANEL (LOINC: 86589-0) ORDER DATE: July 29, 2024 4:56:00 AM [facility] Specimen Source: PLASMA Specimen Type: Plasma specim en PERFORMING LAB: [address] [id number] Result Comment: Final Result Date: July 30, 2024 11:39:00 AM UT (TECH: ARR) LOINC TEST FLAG RESULT REFERENCE RANGE UPDA YUE BY 2951-2 Sodium [Moles/volume] in Serum or Plasma L 135 mmol/L 136 mmol/L - 145 mmol/L July 30, 2024 11:39:00 AM UT (TECH: ARR) 2823-3 Potassium [Moles/volume] in Serum or Plasma L 3.5 mmol/L 3.6 mmol/L - 5.0 mmol/L July 30, 2024 11:39:00 AM UT (TECH: ARR) 2075-0 Chloride [Moles/volume] in Serum or Plasma N 101 mmol/L 98 mmol/L - 107 mmol/L July 30, 2024 11:39:00 AM UTC (TECH: ARR) 2027-9 Carbon dioxide, total [Moles/volume] in Serum or Plasma N 27.8 mmol/L 21.0 mmol/L - 32.0 mmol/L July 30, 2024 11:39:00 AM UTC (TECH: ARR) 58029-6 Anion gap in Blood N 9.7 M 2024 11:39:00 AM UTC (TECH: ARR) 2345-7 Glucose [Mass/volume] in Serum or Plasma N 102 mg/dl 70 mg/dl - 120 mg/dl July 30, 2024 11:39:00 AM UTC (TECH: ARR) 6299-2 Urea nitrogen [Mass/volume] in Blood N 10 mg/dL 7 mg/dL - 18 mg/dL July 30, 2024 11:39:00 AM UTC (TECH: ARR) 48951-9 Creatinine [Moles/volume] in Blood N 0.9 mg/dL 0.6 mg/dL - 1.3 mg/dL July 30, 2024 11:39:00 AM UTC (TECH: ARR) 91403-1 Glomerular filtration rate/1.73 sq M.predicted by Creatinine-based formula (MDRD) N 99 mlpermin 60 mlpermin July 30, 2024 11:39:00 AM UT (TECH: ARR) 20847-0 Osmolality of Serum or Plasma by calculated by sum of electrolytes N 280 mosm/kg 275 mosm/kg - 301 mosm/kg July 30, 2024 11:39:00 AM UTC (TECH: ARR) 39274-7 Calcium [Mass/volume] in Serum or Plasma N 8.6 mg/dl 8.5 mg/dl - 10.5 mg/dl July 30, 2024 11:39:00 AM UT (TECH: ARR) ORDER 3901: MAGNESIUM (LOINC : 20419-1) ORDER DATE: July 29, 2024 4:56:00 AM UT Specimen Source: PLASMA Specimen Type: Plasma specim en PERFORMING LAB: [address] [id number] Result Comment: Final Result Date: July 29, 2024 9:58:00 AM UT (TECH: ARR) LOINC TEST FLAG RESULT REFERENCE RANGE UPDA YUE BY Magnesium [Mass/volume] in Serum or Plasma N 2.1 MG/DL 1.8 MG/DL - 2.4 MG/DL July 29, 2024 9:58:00 AM UTC (TECH: ARR) ORDER 3902: MAGNESIUM (LOINC : 16732-1) ORDER DATE: July 29, 2024 4:56:00 AM UTC Specimen Source: PLASMA Specimen Type: Plasma specim en PERFORMING LAB: [address] [id number] Result Comment: Final Result Date: July 30, 2024 11:39:00 AM UTC (TECH: ARR) LOINC TEST [place] [address]-8 Magnesium [Mass/volume] in Serum or Plasma N 1.8 MG/DL 1.8 MG/DL - 2.4 MG/DL July 30, 2024 11:39:00 AM UTC (TECH: ARR) ORDER 4200: GLUCOSE BEDSIDE TESTING (LOINC: 65997-9) ORDER DATE: July 28, 2024 12:41:00 PM UTC Specimen Source: WHOLE BLOOD Specimen Type: Whole blood s ample PERFORMING LAB: [address] [id number] Result Comment: July 29, 2024 8:37:00 AM UTC Test performed by: [id number] ; Instrument: [id number] Final Result Date: July 29, 2024 8:37:00 AM UTC LOINC TEST FLAG [place] [address]-6 Glucose [Mass/volume] in Capillary blood by Glucometer H 125 mg/dl 70 mg/dl - 105 mg/dl July 29, 2024 8:37:00 AM UTC ORDER 4300: GLUCOSE BEDSIDE TESTING (LOINC: 98092-6) ORDER DATE: July 29, 2024 10:01:00 AM UTC Specimen Source: WHOLE BLOOD Specimen Type: Whole blood s ample PERFORMING LAB: [address] [id number] Result Comment: July 29, 2024 10:13:00 AM UTC Test performed by: [id number] ; Instrument: [id number] Final Result Date: July 29, 2024 10:13:00 AM UTC LOINC TEST FLAG [place] [address]-4 Glucose [Mass/volume] in Capillary blood by Glucometer N 94 mg/dl 70 mg/dl - 105 mg/dl July 29, 2024 10:13:00 AM UTC ORDER 7300: CBC AUTO W DIFF (LOINC: 92891-3) ORDER DATE: July 31, 2024 1:51:00 PM UTC Specimen Source: EDTA Specimen Type: Blood specime n with EDTA PERFORMING LAB: [address] [id number] Result Comment: Final Result Date: July 31, 2024 2:14:00 PM UTC (TECH: JNJ) LOINC TEST FLAG RESULT REFERENCE RANGE UPDA YUE BY 6690-2 Leukocytes [#/volume] in Blood by Automated count H 13.2 K/ul 4.0 K/ul - 10.5 K/ul July 31, 2024 2:14:00 PM UTC (TECH: JNJ) 789-8 Erythrocytes [#/volume] in Blood by Automated count N 4.7 M/mm3 4.7 M/mm3 - 6.1 M/mm3 July 31, 2024 2:14:00 PM UTC (TECH: JNJ) 718-7 Hemoglobin [Mass/volume] in Blood N 13.9 gm/dl 13.5 gm/dl - 18.0 gm/dl July 31, 2024 2:14:00 PM UTC (TECH: JNJ) 56189-1 Hematocrit [Volume Fraction] of Blood L 41.1 % 42.0 % - 52.0 % July 31, 2024 2:14:00 PM UTC (TECH: JNJ) 787-2 Erythrocyte mean corpuscular volume [Entitic volume] by Automated count N 88.2 fl 78 fl - 100 fl July 31, 2024 2:14:00 PM UTC (TECH: JNJ) 785-6 Erythrocyte mean corpuscular hemoglobin [Entitic mass] by Automated count N 29.8 pg 27 pg - 31 pg July 31, 2024 2:14:00 PM UTC (TECH: JNJ) 786-4 Erythrocyte mean corpuscular hemoglobin concentration [Mass/volume] by Automated count N 33.8 g/dl 32 g/dl - 36 g/dl July 31, 2024 2:14:00 PM UTC (TECH: JNJ) 73286-5 Erythrocyte distribution width [Ratio] N 13.1 % 11.5 % - 14.0 % July 31, 2024 2:14:00 PM UTC (TECH: [place]) 777-3 Platelets [#/volume] in Blood by Automated count N 260 K/ul 150 K/ul - 450 K/ul July 31, 2024 2:14:00 PM UTC (TECH: [place]) 59272-1 Platelet mean volume [Entitic volume] in Blood by Automated count H 10.7 fl 6 fl - 9.5 fl July 31, 2024 2:14:00 PM UTC (TECH: [place]) 31021-7 Neutrophils/100 leukocytes in Blood H 72.5 % 43 % - 65 % July 31, 2024 2:14:00 PM UTC (TECH: [place]) 736-9 Lymphocytes/100 leukocytes in Blood by Automated count L 15.0 % 20.5 % - 45.5 % July 31, 2024 2:14:00 PM UTC (TECH: [place]) 5905-5 Monocytes/100 leukocytes in Blood by Automated count N 8.3 % 5.5 % - 11.7 % July 31, 2024 2:14:00 PM UTC (TECH: [place]) 713-8 Eosinophils/100 leukocytes in Blood by Automated count H 3.5 % 0.9 % - 2.9 % July 31, 2024 2:14:00 PM UTC (TECH: [place]) 706-2 Basophils/100 leukocytes in Blood by Automated count N 0.5 % 0.2 % - 1.0 % July 31, 2024 2:14:00 PM UTC (TECH: [place]) 43120-8 Immature granulocytes/100 leukocytes in Blood by Automated count N 0.2 % 0.0 % - 0.8 % July 31, 2024 2:14:00 PM UTC (TECH: [place]) 31282-8 Nucleated cells [#/volume] in Blood N 0.0 % July 31, 2024 2:14:00 PM UTC (TECH: [place]) 02275-9 Neutrophils [#/volume] in Blood H 9.5 K/uL 2.2 K/uL - 4.8 K/uL July 31, 2024 2:14:00 PM UTC (TECH: [place]) 731-0 Lymphocytes [#/volume] in Blood by Automated count N 2.0 CELL/MCL 1.3 CELL/MCL - 2.9 CELL/MCL July 31, 2024 2:14:00 PM UTC (TECH: [place]) 742-7 Monocytes [#/volume] in Blood by Automated count H 1.1 CELL/MCL 0.3 CELL/MCL - 0.8 CELL/MCL July 31, 2024 2:14:00 PM UTC (TECH: [place]) 711-2 Eosinophils [#/volume] in Blood by Automated count H 0.5 CELL/MCL 0 CELL/MCL - 0.2 CELL/MCL July 31, 2024 2:14:00 PM UTC (TECH: [place]) 704-7 Basophils [#/volume] in Blood by Automated count N 0.1 CELL/MCL 0.0 CELL/MCL - 1.0 CELL/MCL July 31, 2024 2:14:00 PM UTC (TECH: [place]) 96797-1 Immature granulocytes [#/volume] in Blood N 0.03 K/ul July 31, 2024 2:14:00 PM UTC (TECH: [place]) 65878-3 Nucleated cells [#/volume] in Blood N 0.00 K/uL July 31, 2024 2:14:00 PM UTC (TECH: [place]) 26653-8 Manual Differential panel - Blood N NO July 31, 2024 2:14:00 PM UTC (TECH: [place]) ORDER 7400: BASIC METABOLIC PANEL (LOINC: 82707-1) ORDER DATE: July 31, 2024 1:51:00 PM UT Specimen Source: PLASMA Specimen Type: Plasma specim en PERFORMING LAB: [address] [id number] Result Comment: Final Result Date: July 31, 2024 2:28:00 PM UT (TECH: [place]) LOINC TEST FLAG RESULT REFERENCE RANGE UPDA YUE BY 2951-2 Sodium [Moles/volume] in Serum or Plasma L 133 mmol/L 136 mmol/L - 145 mmol/L July 31, 2024 2:28:00 PM UTC (TECH: [place]) 2823-3 Potassium [Moles/volume] in Serum or Plasma L 3.4 mmol/L 3.6 mmol/L - 5.0 mmol/L July 31, 2024 2:28:00 PM UT (TECH: [place]) 5-0 Chloride [Moles/volume] in Serum or Plasma N 98 mmol/L 98 mmol/L - 107 mmol/L July 31, 2024 2:28:00 PM UTC (TECH: [place]) 8-9 Carbon dioxide, total [Moles/volume] in Serum or Plasma N 27.3 mmol/L 21.0 mmol/L - 32.0 mmol/L July 31, 2024 2:28:00 PM UT (TECH: [place]) 50293-0 Anion gap in Blood N 11.1 M 2024 2:28:00 PM UT (TECH: [place]) 2345-7 Glucose [Mass/volume] in Serum or Plasma H 124 mg/dl 70 mg/dl - 120 mg/dl July 31, 2024 2:28:00 PM UT (TECH: [place]) 6299-2 Urea nitrogen [Mass/volume] in Blood N 11 mg/dL 7 mg/dL - 18 mg/dL July 31, 2024 2:28:00 PM UT (TECH: [place]) 59405-6 Creatinine [Moles/volume] in Blood N 0.9 mg/dL 0.6 mg/dL - 1.3 mg/dL July 31, 2024 2:28:00 PM UT (TECH: [place]) 52649-8 Glomerular filtration rate/1.73 sq M.predicted by Creatinine-based formula (MDRD) N 99 mlpermin 60 mlpermin July 31, 2024 2:28:00 PM UT (TECH: [place]) 18782-0 Osmolality of Serum or Plasma by calculated by sum of electrolytes N 278 mosm/kg 275 mosm/kg - 301 mosm/kg July 31, 2024 2:28:00 PM UT (TECH: [place]) 32395-6 Calcium [Mass/volume] in Serum or Plasma N 9.2 mg/dl 8.5 mg/dl - 10.5 mg/dl July 31, 2024 2:28:00 PM UT (TECH: [place]) ORDER 7500: PROCALCITONIN (L OINC: 37434-4) ORDER DATE: July 31, 2024 1:51:00 PM UTC Specimen Source: PLASMA Specimen Type: Plasma specim en PERFORMING LAB: [address] [id number] Result Comment: Final Result Date: July 31, 2024 2:34:00 PM UTC (TECH: JNJ) LOINC TEST FLAG [place]ULT [place] [address]-1 Procalcitonin [Mass/volume] in Serum or Plasma by Immunoassay N <0.05 ng/mL 0.00 ng/mL - 0.5 ng/mL July 31, 2024 2:34:00 PM UTC (TECH: JNJ) ORDER 7600: C-REACTIVE PROTE IN CRP (LOINC: 1987-07) ORDER DATE: July 31, 2024 1:51:00 PM UTC Specimen Source: PLASMA Specimen Type: Plasma specim en PERFORMING LAB: [address] [id number] Result Comment: Final Result Date: July 31, 2024 2:35:00 PM UTC (TECH: JNJ) LOINC TEST FLAG RESULT REFERENCE RANGE UPDA YUE BY 1987-07 C reactive protein [Mass/volume] in Serum or Plasma H 2.2 mg/dL 0.05 mg/dL - 0.300 mg/dL July 31, 2024 2:35:00 PM UTC (TECH: JNJ) ORDER 17435: PROCALCITONIN ( LOINC: 80714-0) ORDER DATE: August 03, 2024 3:17:00 PM UTC Specimen Source: PLASMA Specimen Type: Plasma specim en PERFORMING LAB: [address] [id number] Result Comment: Final Result Date: August 03, 2024 10:58:00 PM UTC (TECH: AY) LOINC TEST FLAG [place] [address]-2 Procalcitonin [Mass/volume] in Serum or Plasma by Immunoassay N <0.05 ng/mL 0.00 ng/mL - 0.5 ng/mL August 03, 2024 10:58:00 PM UTC (TECH: AY) ORDER [id number]: CBC AUTO W DIFF (LOINC: 01256-5) ORDER DATE: August 03, 2024 3:17:00 PM UTC Specimen Source: EDTA Specimen Type: Blood specime n with EDTA PERFORMING LAB: [place] [id number] [facility] [id number] Result Comment: Final Result Date: August 03, 2024 5:40:00 PM UTC (TECH: JCG) LOINC TEST FLAG RESULT REFERENCE RANGE UPDA YUE BY 6690-2 Leukocytes [#/volume] in Blood by Automated count H 11.7 K/ul 4.0 K/ul - 10.5 K/ul August 03, 2024 5:40:00 PM UTC (TECH: JCG) 789-8 Erythrocytes [#/volume] in Blood by Automated count N 4.7 M/mm3 4.7 M/mm3 - 6.1 M/mm3 August 03, 2024 5:40:00 PM UTC (TECH: JCG) 718-7 Hemoglobin [Mass/volume] in Blood N 13.8 gm/dl 13.5 gm/dl - 18.0 gm/dl August 03, 2024 5:40:00 PM UTC (TECH: JCG) 67811-1 Hematocrit [Volume Fraction] of Blood L 40.9 % 42.0 % - 52.0 % August 03, 2024 5:40:00 PM UTC (TECH: JCG) 787-2 Erythrocyte mean corpuscular volume [Entitic volume] by Automated count N 87.6 fl 78 fl - 100 fl August 03, 2024 5:40:00 PM UTC (TECH: JCG) 785-6 Erythrocyte mean corpuscular hemoglobin [Entitic mass] by Automated count N 29.6 pg 27 pg - 31 pg August 03, 2024 5:40:00 PM UTC (TECH: JCG) 786-4 Erythrocyte mean corpuscular hemoglobin concentration [Mass/volume] by Automated count N 33.7 g/dl 32 g/dl - 36 g/dl August 03, 2024 5:40:00 PM UTC (TECH: JCG) 14786-7 Erythrocyte distribution width [Ratio] N 13.2 % 11.5 % - 14.0 % August 03, 2024 5:40:00 PM UTC (TECH: JCG) 777-3 Platelets [#/volume] in Blood by Automated count N 300 K/ul 150 K/ul - 450 K/ul August 03, 2024 5:40:00 PM UTC (TECH: JCG) 51657-4 Platelet mean volume [Entitic volume] in Blood by Automated count H 10.9 fl 6 fl - 9.5 fl August 03, 2024 5:40:00 PM UTC (TECH: JCG) 58981-1 Neutrophils/100 leukocytes in Blood H 72.8 % 43 % - 65 % August 03, 2024 5:40:00 PM UTC (TECH: JCG) 736-9 Lymphocytes/100 leukocytes in Blood by Automated count L 14.5 % 20.5 % - 45.5 % August 03, 2024 5:40:00 PM UTC (TECH: JCG) 5905-5 Monocytes/100 leukocytes in Blood by Automated count N 8.3 % 5.5 % - 11.7 % August 03, 2024 5:40:00 PM UTC (TECH: JCG) 713-8 Eosinophils/100 leukocytes in Blood by Automated count H 3.3 % 0.9 % - 2.9 % August 03, 2024 5:40:00 PM UTC (TECH: JCG) 706-2 Basophils/100 leukocytes in Blood by Automated count N 0.6 % 0.2 % - 1.0 % August 03, 2024 5:40:00 PM UTC (TECH: JCG) 15234-1 Immature granulocytes/100 leukocytes in Blood by Automated count N 0.5 % 0.0 % - 0.8 % August 03, 2024 5:40:00 PM UTC (TECH: JCG) 44518-2 Nucleated cells [#/volume] in Blood N 0.0 % August 03, 2024 5:40:00 PM UTC (TECH: JCG) 69722-0 Neutrophils [#/volume] in Blood H 8.5 K/uL 2.2 K/uL - 4.8 K/uL August 03, 2024 5:40:00 PM UTC (TECH: JCG) 731-0 Lymphocytes [#/volume] in Blood by Automated count N 1.7 CELL/MCL 1.3 CELL/MCL - 2.9 CELL/MCL August 03, 2024 5:40:00 PM UTC (TECH: JCG) 742-7 Monocytes [#/volume] in Blood by Automated count H 1.0 CELL/MCL 0.3 CELL/MCL - 0.8 CELL/MCL August 03, 2024 5:40:00 PM UTC (TECH: JCG) 711-2 Eosinophils [#/volume] in Blood by Automated count H 0.4 CELL/MCL 0 CELL/MCL - 0.2 CELL/MCL August 03, 2024 5:40:00 PM UTC (TECH: JCG) 704-7 Basophils [#/volume] in Blood by Automated count N 0.1 CELL/MCL 0.0 CELL/MCL - 1.0 CELL/MCL August 03, 2024 5:40:00 PM UTC (TECH: JCG) 66189-9 Immature granulocytes [#/volume] in Blood N 0.06 K/ul August 03, 2024 5:40:00 PM UTC (TECH: JCG) 07645-2 Nucleated cells [#/volume] in Blood N 0.00 K/uL August 03, 2024 5:40:00 PM UTC (TECH: JCG) 71801-8 Manual Differential panel - Blood N NO August 03, 2024 5:40:00 PM UTC (TECH: JCG) ORDER [id number]: C-REACTIVE PROT EIN CRP (LOINC: 1987-) ORDER DATE: August 03, 2024 3:17:00 PM UTC Specimen Source: PLASMA Specimen Type: Plasma specim en PERFORMING LAB: [address] [id number] Result Comment: Final Result Date: August 03, 2024 6:07:00 PM UTC (TECH: PP) LOINC TEST FLAG RESULT REFERENCE RANGE UPDA YEU BY 1987- C reactive protein [Mass/volume] in Serum or Plasma H 2.3 mg/dL 0.05 mg/dL - 0.300 mg/dL August 03, 2024 6:07:00 PM UTC (TECH: PP) ORDER [id number]: BASIC METABOLIC PANEL (LOINC: 02401-3) ORDER DATE: August 03, 2024 3:17:00 PM UTC Specimen Source: PLASMA Specimen Type: Plasma specim en PERFORMING LAB: [address] [id number] Result Comment: Final Result Date: August 03, 2024 6:07:00 PM UTC (TECH: PP) LOINC TEST FLAG RESULT REFERENCE RANGE UPDA YUE BY 2951-2 Sodium [Moles/volume ] in Serum or Plasma L 132 mmol/L 136 mmol/L - 145 mmol/L August 03, 2024 6:07:00 PM UTC (TECH: PP) 2823-3 Potassium [Moles/volume] in Serum or Plasma L 3.3 mmol/L 3.6 mmol/L - 5.0 mmol/L August 03, 2024 6:07:00 PM UTC (TECH: PP) 5-0 Chloride [Moles/volu me] in Serum or Plasma L 96 mmol/L 98 mmol/L - 107 mmol/L August 03, 2024 6:07:00 PM UTC (TECH: PP) 2027-9 Carbon dioxide, tota l [Moles/volume] in Serum or Plasma N 26.8 mmol/L 21.0 mmol/L - 32.0 mmol/L August 03, 2024 6:07:00 PM UTC (TECH: PP) 22771-4 Anion gap in Blood N 12.5 J 2024 6:07:00 PM UTC (TECH: PP) 2345-7 Glucose [Mass/volume ] in Serum or Plasma H 121 mg/dl 70 mg/dl - 120 mg/dl August 03, 2024 6:07:00 PM UTC (TECH: PP) 6299-2 Urea nitrogen [Mass/volume] in Blood H 20 mg/dL 7 mg/dL - 18 mg/dL August 6:07:00 PM UTC (TECH: PP) 74217-2 Creatinine [Moles/volume] in Blood N 1.1 mg/dL 0.6 mg/dL - 1.3 mg/dL August 03, 2024 6:07:00 PM UTC (TECH: PP) 25684-4 Glomerular filtratio n rate/1.73 sq M.predicted by Creatinine-based formula (MDRD) N 78 mlpermin 60 mlpermin August 03, 2024 6:07:00 PM UTC (TECH: PP) 54650-9 Osmolality of Serum or Plasma by calculated by sum of electrolytes N 279 mosm/kg 275 mosm/kg - 301 mosm/kg August 03, 2024 6:07:00 PM UTC (TECH: PP) 57194-3 Calcium [Mass/volume ] in Serum or Plasma N 9.1 mg/dl 8.5 mg/dl - 10.5 mg/dl August 03, 2024 6:07:00 PM [facility] (TECH: PP) LABORATORY NARRATIVE RESULTS Information is not available RADIOLOGY RESULTS ORDER 100: CT BRAIN W/O STRO KE PROTOCOL (LOINC: 76098-0) ORDER DATE: July 28, 2024 4:17:00 AM [facility] PERFORMING LAB: [address] [id number] Final Result Date: July 28 6:21:[address] [address] Name: АНДРЕЙ QUEVEDO Exam Date: 07/28/2024 : 1965 Age 59 years Gender: M Physician: YAEL TANNER Facility: [facility] Facility HSV: Outpatient Exam: CT BRAIN W/O (STROKE PROTOCOL) FINAL REPORT TECHNIQUE: null CLINICAL HISTORY: Hemiplegia multiple falls possible stroke COMPARISON: null FINDINGS: CT Head WO Contrast COMPARISON: None FINDINGS: No acute intracranial hemorrhage. No evidence of acute infarction. No mass-effect or midline shift. Chronic appearing encephalomalacia in the right basal ganglia. Chronic appearing lacunar infarction or prominent perivascular space in the left basal ganglia. No hydrocephalus. Visualized paranasal sinuses are clear. The mastoid air cells are clear. The visible orbits are normal. No acute fracture. Unremarkable soft tissues. Dental disease noted. IMPRESSION: IMPRESSION: No acute intracranial findings. Nonemergent/incidental findings above. Authenticated and [facility] Dictated By: Marcell Sweet Transcribed By: Transcribed On: 07/28/2024 2:21 AM Electronically signed by: Marcell Sweet 07/28/2024 Thank you for referring АНДРЕЙ QUEVEDO to [facility]. Legally authenticated by ALIREZA BEARD 2024-07-28 02:21:27 ORDER 200: CTA HEAD W/CONT ( LOINC: 51159-2) ORDER DATE: July 28, 2024 4:17:00 AM [facility] PERFORMING LAB: [address] [id number] Final Result Date: July 28 6:29:27 AM [facility] [address] [place] [address] Name: АНДРЕЙ QUEVEDO Exam Date: 07/28/2024 : 1965 Age 59 years Gender: M Physician: YAEL TANNER Facility: [facility] Facility HSV: Outpatient Exam: CTA HEAD W/CONT ADDENDUM REPORT ADDENDUM 1: This report was discussed with YAEL TANNER on July 28, 2024 02:28:00 EDT. Critical findings reported to YAEL TANNER on 07/28/2024 02:28 Authenticated by Marcell Sweet MD on 2024-07-28 02:28:34 [facility] FINAL REPORT Authenticated by Marcell Sweet MD [facility] Dictated By: Marcell Sweet Transcribed By: Transcribed On: 07/28/2024 2:29 AM Electronically signed by: Marcell Sweet 07/28/2024 Thank you for referring АНДРЕЙ QUEVEDO to [facility]. Legally authenticated by ALIREZA BEARD 2024-07-28 02:29:27 ORDER 1200: CT CHEST W/O (LO INC: 71653-9) ORDER DATE: July 28, 2024 5:12:00 AM [place] PERFORMING LAB: [address] [id number] Final Result Date: July 28 9:05:30 AM [facility] [address] [place] [address] Name: АНДРЕЙ QUEVEDO Exam Date: 07/28/2024 : 1965 Age 59 years Gender: M Physician: YAEL TANNER Facility: [facility] Facility HSV: Outpatient Exam: CT CHEST W/O FINAL REPORT TECHNIQUE: null CLINICAL HISTORY: multiple falls COMPARISON: null FINDINGS: CT Angiography Head W Contrast 3D Postprocessing COMPARISON: CT/SR - CT BRAIN W/O (STROKE PROTOCOL) - 07/28/24 00:19 EDT FINDINGS: 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 No occlusion or hemodynamically significant stenosis in the left ICA. 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 No occlusion or hemodynamically significant stenosis in the middle cerebral arteries. No occlusion or hemodynamically significant stenosis in the anterior cerebral arteries. No occlusion or hemodynamically significant stenosis in the bilateral intracranial vertebral arteries. The V4 segment of the right vertebral artery is hypoplastic and terminates in the right PICA, a normal variant. No occlusion or hemodynamically significant stenosis in the basilar artery. No aneurysm. 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 CT Angiography Neck W Contrast 3D Postprocessing COMPARISON: CT/SR - CT BRAIN W/O (STROKE PROTOCOL) - 07/28/24 00:19 EDT FINDINGS: Detail limited by artifacts. No occlusion, hemodynamically significant stenosis, or dissection in the bilateral common carotid arteries. No occlusion, hemodynamically significant stenosis, or dissection in the bilateral internal carotid arteries (0-49 percent). No occlusion, hemodynamically significant stenosis, or dissection in the bilateral vertebral arteries. No acute fracture. Thyroid nodules, each measuring less than 1.5 cm. No imaging follow-up indicated per ACR guidelines. Centrilobular and paraseptal emphysematous changes in the upper lungs. IMPRESSION: No occlusion or hemodynamically significant stenosis in the carotid or vertebral arteries. No dissection. Legally authenticated by ALIREZA BEARD 2024-07-28 02:25:27 Nonemergent/incidental findings above. Authenticated and EASTERN Dictated By: Marcell Sweet Transcribed By: Transcribed On: 07/28/2024 2:25 AM Electronically signed by: Marcell Sweet 07/28/2024 Thank you for referring АНДРЕЙ QUEVEDO to [facility]. Legally authenticated by ALIREZA BEARD 2024-07-28 02:25:27 [id number] [place] [address] Name: АНДРЕЙ QUEVEDO Exam Date: 07/28/2024 : 1965 Age 59 years Gender: M Physician: YAEL TANNER Facility: [facility] Facility HSV: Outpatient Exam: CT CHEST W/O FINAL REPORT TECHNIQUE: null CLINICAL HISTORY: multiple falls COMPARISON: null FINDINGS: CT Angiography Head W Contrast 3D Postprocessing COMPARISON: CT/SR - CT BRAIN W/O (STROKE PROTOCOL) - 07/28/24 00:19 EDT FINDINGS: 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 No occlusion or hemodynamically significant stenosis in the left ICA. 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 No occlusion or hemodynamically significant stenosis in the middle cerebral arteries. No occlusion or hemodynamically significant stenosis in the anterior cerebral arteries. No occlusion or hemodynamically significant stenosis in the bilateral intracranial vertebral arteries. The V4 segment of the right vertebral artery is hypoplastic and terminates in the right PICA, a normal variant. No occlusion or hemodynamically significant stenosis in the basilar artery. No aneurysm. 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 CT Angiography Neck W Contrast 3D Postprocessing COMPARISON: CT/SR - CT BRAIN W/O (STROKE PROTOCOL) - 07/28/24 00:19 EDT FINDINGS: Detail limited by artifacts. No occlusion, hemodynamically significant stenosis, or dissection in the bilateral common carotid arteries. No occlusion, hemodynamically significant stenosis, or dissection in the bilateral internal carotid arteries (0-49 percent). No occlusion, hemodynamically significant stenosis, or dissection in the bilateral vertebral arteries. No acute fracture. Thyroid nodules, each measuring less than 1.5 cm. No imaging follow-up indicated per ACR guidelines. Centrilobular and paraseptal emphysematous changes in the upper lungs. IMPRESSION: No occlusion or hemodynamically significant stenosis in the carotid or vertebral arteries. No dissection. Legally authenticated by ALIREZA BEARD 2024-07-28 05:05:30 Nonemergent/incidental findings above. Authenticated and EASTERN Dictated By: Marcell Sweet Transcribed By: Transcribed On: 07/28/2024 2:25 AM Electronically signed by: Marcell Sweet 07/28/2024 Addendum 1 FINAL REPORT TECHNIQUE: null CLINICAL HISTORY: multiple falls COMPARISON: null FINDINGS: CT Chest WO Contrast COMPARISON: None FINDINGS: Detail limited by artifacts. No pulmonary consolidation. Centrilobular and paraseptal emphysematous changes. Nodule in the right lower lobe measuring 7 mm (series 3, image 141). Nodule in the right lower lobe measuring 4 mm (series 3, image 147). No pleural effusion. No pneumothorax. No cardiomegaly. No pericardial effusion. No pathologically enlarged lymph nodes. No thoracic aortic aneurysm. No acute fracture. Mild degenerative changes in the spine. Nonobstructing right renal calculi. IMPRESSION: IMPRESSION: No acute findings. Right pulmonary nodules. Recommend follow-up chest CT in 3-6 months per Fleischner Society guidelines. Nonemergent/incidental findings above. Authenticated and ERN Dictated By: Marcell Sweet Dictated Date: 07/28/2024 5:05:30 AM Electronically signed by: Marcell Sweet 07/28/2024 Thank you for referring АНДРЕЙ QUEVEDO to [facility]. Legally authenticated by ALIREZA BEARD 2024-07-28 05:05:30 ORDER 1300: MRI BRAIN W/O (L OINC: 43909-9) ORDER DATE: July 28, 2024 11:28:00 AM [facility] PERFORMING LAB: [address] [id number] Final Result Date: July 28 3:33:41 PM [facility] [address] [place] [address] Name: АНДРЕЙ QUEVEDO Exam Date: 07/28/2024 : 1965 Age 59 years Gender: M Physician: ANDRA SAMUELS Facility: [facility] Facility HSV: Outpatient Exam: MRI BRAIN W/O MRI examination of the brain without contrast Technique: Multiplanar multi-sequential MRI examination of the brain was obtained without contrast including T1, T2, flair axials, diffusion weighted imaging, ADC mapping and T1 sagittals CLINICAL INDICATION: Male, 59 years old. stroke r/o, hemiplegia COMPARISON: CT head dated July 28, 2024 Findings: There is an area of diffusion weighted restriction spanning an area of 4 x 11 mm within the left basal ganglia. There is no midline shift or other significant mass effect. There is no acute intracranial hemorrhage or abnormal extra-axial fluid collection. Ventricular sulci configuration is normal. Several small nonspecific deep white matter T2 hyperintense foci are present. Old right basal ganglia lacune is also present. Posterior fossa is intact. Mastoids are well aerated. The visualized portions of the paranasal sinuses are clear. Impression: 1. Small acute left basal ganglia infarct. There is no acute intracranial hemorrhage or significant mass effect. 2. Nonspecific deep white matter T2 hyperintense foci, likely related to chronic small vessel ischemic changes. There are also changes of old right basal ganglia infarct. Electronically signed by: Hortensia Perez MD 07/28/2024 11:28 AM EDT Dictated By: Hortensia Perez Transcribed By: Transcribed On: 07/28/2024 11:28 AM Electronically signed by: Hortensia Perez 07/28/2024 Thank you for referring АНДРЕЙ QUEVEDO to [facility]. Legally authenticated by MERT PETIT 2024-07-28 11:28:[address] [address] Name: АНДРЕЙ QUEVEDO Exam Date: 07/28/2024 : 1965 Age 59 years Gender: M Physician: ANDRA SAMUELS Facility: [facility] Facility HSV: Outpatient Exam: MRI BRAIN W/O MRI examination of the brain without contrast Technique: Multiplanar multi-sequential MRI examination of the brain was obtained without contrast including T1, T2, flair axials, diffusion weighted imaging, ADC mapping and T1 sagittals CLINICAL INDICATION: Male, 59 years old. stroke r/o, hemiplegia COMPARISON: CT head dated July 28, 2024 Findings: There is an area of diffusion weighted restriction spanning an area of 4 x 11 mm within the left basal ganglia. There is no midline shift or other significant mass effect. There is no acute intracranial hemorrhage or abnormal extra-axial fluid collection. Ventricular sulci configuration is normal. Several small nonspecific deep white matter T2 hyperintense foci are present. Old right basal ganglia lacune is also present. Posterior fossa is intact. Mastoids are well aerated. The visualized portions of the paranasal sinuses are clear. Impression: 1. Small acute left basal ganglia infarct. There is no acute intracranial hemorrhage or significant mass effect. 2. Nonspecific deep white matter T2 hyperintense foci, likely related to chronic small vessel ischemic changes. There are also changes of old right basal ganglia infarct. Electronically signed by: Hortensia Perez MD 07/28/2024 11:28 AM EDT Dictated By: Hortensia Perez Transcribed By: Transcribed On: 07/28/2024 11:28 AM Electronically signed by: Hortensia Perez 07/28/2024 Addendum 1 ADDENDUM #1 Findings were discussed with Dr. Aime Pearson at 11:31 AM EST on July 28, 2024 Electronically signed by: Hortensia Perez MD 07/28/2024 11:33 AM EDT ORIGINAL REPORT MRI examination of the brain without contrast Legally authenticated by MERT PETIT 2024-07-28 11:33:41 Technique: Multiplanar multi-sequential MRI examination of the brain was obtained without contrast including T1, T2, flair axials, diffusion weighted imaging, ADC mapping and T1 sagittals CLINICAL INDICATION: Male, 59 years old. stroke r/o, hemiplegia COMPARISON: CT head dated July 28, 2024 Findings: There is an area of diffusion weighted restriction spanning an area of 4 x 11 mm within the left basal ganglia. There is no midline shift or other significant mass effect. There is no acute intracranial hemorrhage or abnormal extra-axial fluid collection. Ventricular sulci configuration is normal. Several small nonspecific deep white matter T2 hyperintense foci are present. Old right basal ganglia lacune is also present. Posterior fossa is intact. Mastoids are well aerated. The visualized portions of the paranasal sinuses are clear. Impression: 1. Small acute left basal ganglia infarct. There is no acute intracranial hemorrhage or significant mass effect. 2. Nonspecific deep white matter T2 hyperintense foci, likely related to chronic small vessel ischemic changes. There are also changes of old right basal ganglia infarct. Electronically signed by: Hortensia Perez MD 07/28/2024 11:28 AM EDT Dictated By: Hortensia Perez Dictated Date: 07/28/2024 11:33:41 AM Electronically signed by: Hortensia Perez 07/28/2024 Thank you for referring АНДРЕЙ QUEVEDO to [facility]. Legally authenticated by MERT PETIT 2024-07-28 11:33:41 ORDER 3200: CHEST PORTABLE ( LOINC: 05694-6) ORDER DATE: July 29, 2024 4:11:00 AM [facility] PERFORMING LAB: [address] [id number] Final Result Date: July 29 12:26:09 PM [facility] [address] [place] [address] Name: АНДРЕЙ QUEVEDO Exam Date: 07/29/2024 : 1965 Age 59 years Gender: M Physician: ANDRA SAMUELS Facility: [facility] Facility HSV: Inpatient Exam: CHEST PORTABLE XR CHEST 1 VIEW PORTABLE Reason For Study: sob COMPARISON:09/13/2021 TECHNIQUE An AP portable view of the chest was obtained. FINDINGS Heart size normal. COPD. Bibasilar patchy infiltrates. No layering effusions. IMPRESSION: Bibasilar infiltrates. Atelectasis versus pneumonia. Electronically signed by: Issa Ramirez MD 07/29/2024 08:26 AM EDT RP Dictated By: Issa Ramirez Transcribed By: Transcribed On: 07/29/2024 8:26 AM Electronically signed by: Issa Ramirez 07/29/2024 Thank you for referring АНДРЕЙ QUEVEDO to [facility]. Legally authenticated by HEATHER RIZOZ 2024-07-29 08:26:09 ORDER 4000: ECHO W SPEC COLO R FLOW (LOINC: 48719-0) ORDER DATE: July 29, 2024 4:58:00 AM [facility] PERFORMING LAB: [address] [id number] Final Result Date: July 30 3:47:50 PM [facility] [address] [place] [address] Name: АНДРЕЙ QUEVEDO Exam Date: 07/29/2024 : 1965 Age 59 years Gender: M Physician: ANDRA SAMUELS Facility: [facility] Facility HSV: Inpatient Exam: ECHO W SPEC COLOR FLOW Reason for Study: stroke, bubble study SUMMARY Normal LV size with normal function. The ejection fraction is 60-65%. Normal diastolic function. Bubble study was non diagnostics due to quality of images INTERPRETATION DETAIL Fair quality study. Left ventricle: The left ventricle is normal in size with normal systolic function. The ejection fraction is 60-65%. There is normal LV wall thickness. LV geometry is normal. There is poor visualization of the anterior wall from the base to the apex. The remainder of the left ventricle functions normally. Mitral filling indicates Normal diastolic function. Left atrium: The left atrium is normal. LA volume: 32.2mL, LA volume index: 15.9mL/mA . Right ventricle: The right ventricle is normal in size with normal function. Right atrium: The right atrium is normal. Mitral valve: The mitral valve is normal. There is no mitral stenosis. There is no mitral regurgitation. Aortic valve: The aortic valve is not well seen. There is with a valve area of 2.51 neonatal icu coordinator (Peak grad=6mmHg, Mean grad=3mmHg, LVOT nick=2.00cm, LVOT TVI=16.0cm, Ao TVI=20.0cm). The dimensionless index is 0.80. AV peak gonfekqe=360yi/sec. Tricuspid valve: The tricuspid valve is normal. There is no tricuspid regurgitation, so PA pressure cannot be estimated. Pulmonic valve: The pulmonic valve is normal. Pericardium: The pericardium is normal. Interatrial septum: The interatrial septum is normal. Aorta: The aortic root is normal. Aortic dimension - Ao M-mode= 3.70cm. Vena Cava: The inferior vena cava is normal. MEASUREMENTS Left Ventricle IVSd: 0.86cm (0.6-1.1cm) PWd: 0.79cm (0.6-1.1cm) Mass [place]: 124g LVMI: 61g/mA (>50-95g/m) LVIDd: 4.62cm (3.7-5.6 cm) LVIDdI: 2.28cm/m2 LVIDs: 2.86cm (1.8-4.2 cm) LVIDsI: 1.41cm/m2 RWT: 0.34 (<0.42) E to A: 0.75 (0.6-2) E-e prime med: 8.29 E-e prime lat: 5.80 Decel: 309.00ms (168-232ms) Right Ventricle Mid RV Nick: 3.3cm (2.7-3.3cm) Max Valve Velocities AV peak [place]: 118cm/sec LVOT: 97.30cm/sec Legally authenticated by BONNIE Hodge 2024-07-30 11:47:50 Atria LA AP: 2.9cm LA vol: 32.2mL FRANDY: 15.9mL/mA (16-28ml/m^2) Demarco Nicole MD Dictated By: DEMARCO NICOLE Transcribed By: Transcribed On: 07/30/2024 11:47 AM Electronically signed by: DEMARCO NICOLE 07/30/2024 Thank you for referring АНДРЕЙ QUEVEDO to [facility]. Legally authenticated by BONNIE Hodge 2024-07-30 11:47:50 ORDER 8000: CHEST PORTABLE ( LOINC: 93014-5) ORDER DATE: July 31, 2024 5:39:00 PM [facility] PERFORMING LAB: [address] [id number] Final Result Date: August 01 1:19:28 PM [id number] Name: АНДРЕЙ QUEVEDO Exam Date: 07/31/2024 : 1965 Age 59 years Gender: M Physician: ANDRA SAMUELS Facility: [facility] Facility HSV: Inpatient Exam: CHEST PORTABLE EXAM: XR CHEST 1 VIEW PORTABLE HISTORY: sob, inc o2 demand. COMPARISON: 07/29/2024. FINDINGS: A single view of the chest demonstrates increasing interstitial opacities in the mid to lower left lung. There is no focal area of pneumonic consolidation. There is no pneumothorax or pleural effusion. The cardiac and mediastinal contours are stable for technique. IMPRESSION: Increasing interstitial opacities in the mid to lower left lung favoring pneumonia. Electronically signed by: Lewis Braun MD 08/01/2024 09:19 AM EDT Dictated By: Lewis Braun Transcribed By: Transcribed On: 08/01/2024 9:19 AM Electronically signed by: Lewis Braun 08/01/2024 Thank you for referring АНДРЕЙ QUEVEDO to [facility]. Legally authenticated by RAJ Simmons 2024-08-01 09:19:28 ORDER [id number]: CT BRAIN W/O (L OINC: 92131-7) ORDER DATE: August 03, 2024 2:14:00 PM [facility] PERFORMING LAB: [address] [id number] Final Result Date: August 03 2:55:50 PM [facility] [address] [place] [address] Name: АНДРЕЙ QUEVEDO Exam Date: 08/03/2024 : 1965 Age 59 years Gender: M Physician: ANDRA SAMUELS Facility: [facility] Facility HSV: Inpatient Exam: CT BRAIN W/O CT HEAD WITHOUT IV CONTRAST 08/03/2024 9:42 AM CDT CLINICAL INDICATION: Male, 59 years old. recent CVA, cognitive decline COMPARISON: Head CT 07/29/2024. MRI 07/28/2024. TECHNIQUE: Head CT was performed without IV contrast. Dose modulation, automated exposure control, and/or interative reconstruction technique used for dose reduction. FINDINGS: Hypodensity in the left basal ganglia/left melendez radiata corresponding to the acute infarct on MRI 07/28/2024. Additional chronic right basal ganglia infarcts. Normal ventricular size. Patent basilar cisterns. No evidence of acute intracranial hemorrhage, mass, or new infarct. Fluid and mucosal thickening in the left maxillary and ethmoid sinuses. IMPRESSION: Acute/early subacute left basal ganglia/periventricular infarct redemonstrated. Chronic ischemic changes. Electronically signed by: Marcell Hays MD 08/03/2024 10:55 AM EDT Dictated By: Marcell Hays Transcribed By: Transcribed On: 08/03/2024 10:55 AM Electronically signed by: Marcell Hays 08/03/2024 Thank you for referring АНДРЕЙ QUEVEDO to [facility]. Legally authenticated by HANNAH BEARD 2024-08-03 10:55:50 PATHOLOGY NARRATIVE RESULTS Information is not available MICROBIOLOGY RESULTS No Micro Labs/Results Exist for Patient BLOOD ADMIN RESULTS Information is not available TREATMENT PLAN DISCHARGE MEDICATIONS Status RXNORM Medication Dose Route Frequency Dates Comments U pdated By Continued [id number] Potassium Chloride Matilda ER Tablet Extended Release 10 MEQ 1 TAB ORAL ONCE DAILY Prescri bed: August 05, 2024 5:22:43 PM [facility] [id number] on August 05, 2024 5:22:43 PM [facility] Continued [id number] Pantoprazole Sodium Tablet Delayed Release 40 MG 1 TAB ORAL ONCE DAILY Prescri bed: August 05, 2024 5:22:43 PM [facility] [id number] on August 05, 2024 5:22:43 PM UT Continued [id number] Vitamin D3 Maximum Strength Capsule 125 MCG (5000 UT) 1 TAB ORAL ONCE DAILY Prescri bed: August 05, 2024 5:22:43 PM [facility] [id number] on August 05, 2024 5:22:43 PM UT Continued Centrum Silver 50+Men Tablet 1 TAB ORAL ONCE DAILY Prescri bed: August 05, 2024 5:22:43 PM [facility] [id number] on August 05, 2024 5:22:43 PM UT Continued [id number] Atorvastatin Calcium Tablet 80 MG 1 TAB ORAL ONCE DAILY Prescri bed: August 05, 2024 5:22:43 PM [facility] [id number] on August 05, 2024 5:22:43 PM UT Continued 613611 Folic Acid Tablet 1 MG 1 TAB ORAL ONCE DAILY Prescri bed: August 05, 2024 5:22:43 PM [facility] [id number] on August 05, 2024 5:22:43 PM UT Continued 068543 Lisinopril Oral Tablet 10 MG 1 TAB ORAL ONCE DAILY Prescri bed: August 05, 2024 5:22:43 PM [facility] [id number] on August 05, 2024 5:22:43 PM UT Continued 555607 Ezetimibe Tablet 10 MG 1 TAB ORAL ONCE DAILY Prescri bed: August 05, 2024 5:22:43 PM [facility] [id number] on August 05, 2024 5:22:43 PM UT Continued [id number] ZyrTEC Allergy Oral Capsule 10 MG 0 ONCE DAILY Prescri bed: August 05, 2024 5:22:43 PM [facility] [id number] on August 05, 2024 5:22:43 PM UT Continued 423063 oxyBUTYnin Chloride Tablet 5 MG 1 TAB ORAL ONCE DAILY Prescri bed: August 05, 2024 5:22:43 PM [facility] [id number] on August 05, 2024 5:22:43 PM UT Continued 150391 Vitamin C ER Capsule Extended Release 500 MG 1 CAP ORAL ONCE DAILY Prescri bed: August 05, 2024 5:22:43 PM [facility] [id number] on August 05, 2024 5:22:43 PM UT Continued 531738 Clopidogrel Bisulfate Tablet 75 MG 1 TAB ORAL ONCE DAILY Prescri bed: August 05, 2024 5:22:43 PM [facility] [id number] on August 05, 2024 5:22:43 PM [facility] Continued 380424 Aspirin Buf(CaCarb-MgCa rb-MgO) Tablet 325 MG 1 TAB ORAL ONCE DAILY Prescri bed: August 05, 2024 5:22:43 PM [facility] [id number] on August 05, 2024 5:22:43 PM [facility] Continued 0596249 Albuterol Sulfate HFA Inhalation Aerosol Solution 108 (90 Base) MCG/ACT 90 Prescri bed: August 05, 2024 5:22:43 PM [facility] [id number] on August 05, 2024 5:22:43 PM [facility] Continued [id number] Gemtesa Oral Tablet 75 MG 0 ONCE DAILY Prescri bed: August 05, 2024 5:22:43 PM [facility] [id number] on August 05, 2024 5:22:43 PM UT Continued 671245 Citalopram Hydrobromide Tablet 40 MG 1 TAB ORAL ONCE DAILY Prescri bed: August 05, 2024 5:22:43 PM [facility] [id number] on August 05, 2024 5:22:43 PM [facility] Continued 9508547 Trelegy Ellipta Inhalation Aerosol Powder Breath Activated 100-62.5-25 MCG/ACT 1 PUF ONCE DAILY Prescri bed: August 05, 2024 5:22:43 PM [facility] [id number] on August 05, 2024 5:22:43 PM [facility] Continued 069081 buPROPion HCl ER (SR) Tablet Extended Release 12 Hour 150 MG 1 TAB ORAL ONCE DAILY Prescri bed: August 05, 2024 5:22:43 PM [facility] [id number] on August 05, 2024 5:22:43 PM UT Continued 774215 Tamsulosin HCl Capsule 0.4 MG 1 TAB ORAL ONCE DAILY Prescri bed: August 05, 2024 5:22:43 PM [facility] [id number] on August 05, 2024 5:22:43 PM UT Continued 755291 ARIPiprazole Tablet 2 MG 1 TAB ORAL ONCE DAILY Prescri bed: August 05, 2024 5:22:43 PM [facility] [id number] on August 05, 2024 5:22:43 PM [facility] PATIENT OPEN ORDERS Code System Description Frequency Occurrences Priority [place] [address] [facility] Neck vessels CT angiogram W contrast IV ONE TIME 0 Stat July 28, 2024 4:17:0 0 AM UT CIRO CONLEY [id number] on July 28, 2024 4:48:00 AM [facility] SCHEDULED PROCEDURES Code System Description Status Scheduled Date Upd ated By Patient scheduled procedure information is not available. 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 New development of expressive aphasia since recent stroke. LKN 2PM 07/27. outside TNK window on admission.- Hgb a1c 5.8, lipid panel normal- cardiac diet- continue dual antiplatelet therapy clopidogrel 75 mg daily and aspirin 324 mg daily - continue high dose statin- fall precautions- neurology f/u as outpatient- [place] [facility] [place]- Sepsis -resolved - Community-acquired pneumonia - improved - Acute hypoxic respiratory failure - improved initially presented with leukocytosis, T of 100.6, and requiring 2 L supplemental oxygen. Respiratory panel negative. Initial chest x- ray with atelectasis versus pneumonia. PMHx includes COPD and current smoker. - treated with ceftriaxone 1q q12hrs and azithromycin 500mg qd (07/31-08/05)- weaned to 1 L nasal cannula, continue weaning oxygen as tolerated- Hypokalemia On thiazide diuretic so likely contributing. Thiazide diuretic discontinued during hospitalization. Would recommend continuing lisinopril and discontinue thiazide at the time of discharge MEDICATIONS HOME MEDICATIONS Status RXNORM [facility] Medication Dose Route Frequency Dates Comments Reported By Updated By Active [id number] 96099 63791 0 ARIPiprazole Tablet 2 MG 1.0 TAB ORAL DAILY Last Dose: [id number] on July 28, 2024 4:27:05 AM [facility] Active 121277 98813 71113 0 Aspirin Buf(CaCarb-M gCarb-MgO) Tablet 325 MG 1.0 TAB ORAL DAILY Last Dose: [id number] on July 28, 2024 4:27:05 AM [facility] Active 322176 83386 52978 0 Atorvastatin Calcium Tablet 80 MG 1.0 TAB ORAL DAILY Last Dose: [id number] on July 28, 2024 4:27:05 AM [facility] [facility] Active 632860 93074 47080 0 buPROPion HCl ER (SR) Tablet Extended Release 12 Hour 150 MG 1.0 TAB ORAL DAILY Last Dose: [id number] on July 28, 2024 4:27:05 AM [facility] Active 59892 72318 0 Centrum Silver 50+Men Tablet 1.0 TAB ORAL DAILY Last Dose: [id number] on July 28, 2024 4:27:05 AM [facility] Active 448770 90752 98559 1 Citalopram Hydrobromide Tablet 40 MG 1.0 TAB ORAL DAILY Last Dose: [id number] on July 28, 2024 4:27:05 AM [facility] Active 495251 79697 18625 2 Clopidogrel Bisulfate Tablet 75 MG 1.0 TAB ORAL DAILY Last Dose: [id number] on July 29, 2024 12:16:23 PM [facility] Active 067502 58732 88925 9 Ezetimibe Tablet 10 MG 1.0 TAB ORAL DAILY Last Dose: [id number] on July 28, 2024 4:27:06 AM [facility] Active 372391 62124 72373 0 Folic Acid Tablet 1 MG 1.0 TAB ORAL DAILY Last Dose: [id number] on July 28, 2024 4:27:07 AM [facility] Active 728741 84520 32542 1 Lisinopril-h ydroCHLOROth iazide Tablet 10-12.5 MG 1.0 TAB ORAL DAILY Last Dose: [id number] on July 28, 2024 4:27:07 AM [facility] Active 991789 87007 51219 0 oxyBUTYnin Chloride Tablet 5 MG 1.0 TAB ORAL DAILY Last Dose: [id number] on July 28, 2024 4:27:08 AM [facility] Active 918363 85967 20620 0 Pantoprazole Sodium Tablet Delayed Release 40 MG 1.0 TAB ORAL DAILY Last Dose: [id number] on July 28, 2024 4:27:08 AM [facility] Active 4437905 73719 55865 1 Potassium Chloride Matilda ER Tablet Extended Release 10 MEQ 1.0 TAB ORAL DAILY Last Dose: [id number] on July 28, 2024 4:27:08 AM [facility] Active 749441 75398 22648 1 Tamsulosin HCl Capsule 0.4 MG 1.0 TAB ORAL DAILY Last Dose: [id number] on July 28, 2024 4:27:08 AM [place] Active 3413476 52288 91154 0 Trelegy Ellipta Inhalation Aerosol Powder Breath Activated 100-62.5-25 MCG/ACT 1.0 PUF DAILY Last Dose: [id number] on August 05, 2024 5:02:04 PM [place] Active 04264 49704 0 Vitamin C ER Capsule Extended Release 500 MG 1.0 CAP ORAL DAILY Last Dose: [id number] on July 28, 2024 4:27:08 AM [facility] Active 18310 42951 1 Vitamin D3 Maximum Strength Capsule 125 MCG (5000 UT) 1.0 TAB ORAL DAILY Last Dose: [id number] on July 28, 2024 4:27:09 AM [facility] Active 7457745 06625 99880 0 Gemtesa Oral Tablet 75 MG 0.0 DAILY Last Dose: [id number] on August 05, 2024 5:17:37 PM [facility] Active 2788986 75543 36494 8 Albuterol Sulfate HFA Inhalation Aerosol Solution 108 (90 Base) MCG/ACT 90.0 Last Dose: [id number] on August 05, 2024 5:02:51 PM [facility] Active 7211059 03208 82532 5 ZyrTEC Allergy Oral Capsule 10 MG 0.0 DAILY Last Dose: [id number] on August 05, 2024 5:16:46 PM [facility] DISCHARGE MEDICATIONS Status RXNORM [facility] Medication Dose Route Frequency Dates Comments Physician Updated By Continue blanco [id number] 0268 9027 901 Potassium Chloride Matilda ER Tablet Extended Release 10 MEQ 1.0 TAB ORAL ONCE DAILY Prescr ibed: August 05, 2024 5:22:4 3 PM [facility] ARVIND RAO [id number] on August 05, 2024 5:22:43 PM [facility] Continue d 632183 1408 1078 230 Pantoprazol e Sodium Tablet Delayed Release 40 MG 1.0 TAB ORAL ONCE DAILY Prescr ibed: August 05, 2024 5:22:4 3 PM [facility] ARVIND RAO [id number] on August 05, 2024 5:22:43 PM UTC Continue d 694172 6692 1031 271 Vitamin D3 Maximum Strength Capsule 125 MCG (5000 UT) 1.0 TAB ORAL ONCE DAILY Prescr ibed: August 05, 2024 5:22:4 3 PM [facility] ARVIND HOOPERLEANNAErica RAO [id number] on August 05, 2024 5:22:43 PM UTC Continue d 0000 5475 850 Centrum Silver 50+Men Tablet 1.0 TAB ORAL ONCE DAILY Prescr ibed: August 05, 2024 5:22:4 3 PM [place] ARVIND RAO [id number] on August 05, 2024 5:22:43 PM UTC Continue d 170968 8335 4083 090 Atorvastati n Calcium Tablet 80 MG 1.0 TAB ORAL ONCE DAILY Prescr ibed: August 05, 2024 5:22:4 3 PM [facility] ARVIND RAO [id number] on August 05, 2024 5:22:43 PM UTC Continue d 417393 7977 9049 230 Folic Acid Tablet 1 MG 1.0 TAB ORAL ONCE DAILY Prescr ibed: August 05, 2024 5:22:4 3 PM [facility] ARVIND RAO [id number] on August 05, 2024 5:22:43 PM UTC Continue d 780424 8344 1040 701 Lisinopril Oral Tablet 10 MG 1.0 TAB ORAL ONCE DAILY Prescr ibed: August 05, 2024 5:22:4 3 PM [facility] ARVIND RAO [id number] on August 05, 2024 5:22:43 PM UTC Continue d 273940 8684 1371 319 Ezetimibe Tablet 10 MG 1.0 TAB ORAL ONCE DAILY Prescr ibed: August 05, 2024 5:22:4 3 PM [facility] ARVIND RAO [id number] on August 05, 2024 5:22:43 PM UTC Continue d 5577949 7958 5020 425 ZyrTEC Allergy Oral Capsule 10 MG 0.0 ONCE DAILY Prescr ibed: August 05, 2024 5:22:4 3 PM [facility] ARVIND RAO [id number] on August 05, 2024 5:22:43 PM UT Continue d 965791 1221 2002 800 oxyBUTYnin Chloride Tablet 5 MG 1.0 TAB ORAL ONCE DAILY Prescr ibed: August 05, 2024 5:22:4 3 PM [facility] [id number] on August 05, 2024 5:22:43 PM UT Continue d 241743 9887 2003 750 Vitamin C ER Capsule Extended Release 500 MG 1.0 CAP ORAL ONCE DAILY Prescr ibed: August 05, 2024 5:22:4 3 PM [facility] [id number] on August 05, 2024 5:22:43 PM UTC Continue d 095158 2093 5025 302 Clopidogrel Bisulfate Tablet 75 MG 1.0 TAB ORAL ONCE DAILY Prescr ibed: August 05, 2024 5:22:4 3 PM [facility] [id number] on August 05, 2024 5:22:43 PM UTC Continue d 530144 9947 5051 730 Aspirin Buf(CaCarb- MgCarb-MgO) Tablet 325 MG 1.0 TAB ORAL ONCE DAILY Prescr ibed: August 05, 2024 5:22:4 3 PM [facility] [id number] on August 05, 2024 5:22:43 PM UT Continue d 1639194 6699 3001 968 Albuterol Sulfate HFA Inhalation Aerosol Solution 108 (90 Base) MCG/ACT 90.0 Prescr ibed: August 05, 2024 5:22:4 3 PM [facility] [id number] on August 05, 2024 5:22:43 PM UTC Continue d 8885410 7333 6007 530 Gemtesa Oral Tablet 75 MG 0.0 ONCE DAILY Prescr ibed: August 05, 2024 5:22:4 3 PM [facility] [id number] on August 05, 2024 5:22:43 PM UT Continue d 188810 8633 2000 701 Citalopram Hydrobromid e Tablet 40 MG 1.0 TAB ORAL ONCE DAILY Prescr ibed: August 05, 2024 5:22:4 3 PM [facility] [id number] on August 05, 2024 5:22:43 PM UT Continue d 3857252 0135 3088 710 Trelegy Ellipta Inhalation Aerosol Powder Breath Activated 100-62.5-25 MCG/ACT 1.0 PUF ONCE DAILY Prescr ibed: August 05, 2024 5:22:4 3 PM UT ARVIND RAO [id number] on August 05, 2024 5:22:43 PM UT Continue d 143483 5119 1012 260 buPROPion HCl ER (SR) Tablet Extended Release 12 Hour 150 MG 1.0 TAB ORAL ONCE DAILY Prescr ibed: August 05, 2024 5:22:4 3 PM UT ARVIND RAO [id number] on August 05, 2024 5:22:43 PM UT Continue d 510151 0438 1207 601 Tamsulosin HCl Capsule 0.4 MG 1.0 TAB ORAL ONCE DAILY Prescr ibed: August 05, 2024 5:22:4 3 PM [facility] ARVIND RAO [id number] on August 05, 2024 5:22:43 PM UT Continue d 855956 1582 8021 630 ARIPiprazol e Tablet 2 MG 1.0 TAB ORAL ONCE DAILY Prescr ibed: August 05, 2024 5:22:4 3 PM [facility] ARVIND RAO [id number] on August 05, 2024 5:22:43 PM [facility] INPATIENT MEDICATIONS Status RXNORM [facility] Medication Dose Route Frequency Rat e Quantity Dates Comments Physician Updated By Delphine inued [id number] 5258 1442 609 clopidogrel (PLAVIX) 75 MG TABS 75.0 MG ORAL ONCE DAILY Start: July 28, 2024 1:00:0 0 PM UT End: July 28, 2024 4:13:1 0 PM [facility] ARVIND SILVERMAN [id number] on July 28, 2024 4:13:00 PM [facility] Delphine inued [id number] 1789 0574 60 clopidogrel (PLAVIX) 75 MG TABS 225.0 MG ORAL GIVE ONE DOSE NOW Start: July 28, 2024 3:47:0 0 PM UT End: July 28, 2024 3:59:1 8 PM [facility] ARVIDN SILVERMAN [id number] on July 28, 2024 3:59:00 PM UTC Discont inued 983183 9546 6092 110 aspirin EC (ECOTRIN) 325 MG TBEC 325.0 MG ORAL GIVE ONE DOSE NOW Start: July 28, 2024 3:57:0 0 PM UTC End: July 28, 2024 4:01:5 9 PM UT ARVIND SILVERMAN [id number] on July 28, 2024 4:01:00 PM UTC Discont inued 731360 0009 4075 225 clopidogrel (PLAVIX) 300 MG TABS 300.0 MG ORAL GIVE ONE DOSE NOW Start: July 28, 2024 4:04:0 0 PM UTC End: July 28, 2024 4:22:4 7 PM [facility] [id number] on July 28, 2024 4:22:00 PM UTC Discont inued 401068 9699 6092 110 aspirin EC (ECOTRIN) 325 MG TBEC 325.0 MG ORAL GIVE ONE DOSE NOW Start: July 28, 2024 4:05:0 0 PM UTC End: July 28, 2024 4:15:4 5 PM UT SAMULES WALIAH [id number] on July 28, 2024 4:15:00 PM UTC Discont inued 215431 6886 9093 920 atorvastati n (LIPITOR) 20 MG TABS 40.0 MG ORAL ONCE DAILY Start: July 28, 2024 4:05:0 0 PM UTC End: July 30, 2024 12:07: 00 PM [facility] SAMUELS ANDRA SSTCLAIR on July 30, 2024 12:07:00 PM UTC Discont inued 034530 2116 4053 601 clopidogrel (PLAVIX) 75 MG TABS 75.0 MG ORAL ONCE DAILY Start: July 29, 2024 1:00:0 0 PM UTC End: July 30, 2024 12:09: 41 PM UT MICHEL CHRISTIANA SSTCLAIR on July 30, 2024 12:09:00 PM UTC Discont inued 148678 9852 8011 704 LACTATED RINGERS SOLN 1000. 0 ML IV CONTIN UOUS CONT 125.0 ML/HR Start: July 29, 2024 4:09:0 0 AM UTC End: July 31, 2024 12:58: 06 PM UTC ARVIND SILVERMAN [id number] on July 31, 2024 12:58:00 PM UTC Discont inued 075667 8657 3854 023 LOVENOX 40 MG/0.4 ML SOLN 40.0 MG SUBCUT ANEOUS ONCE DAILY Start: July 29, 2024 1:00:0 0 PM UTC End: August 05, 2024 5:22:4 3 PM UTC ARVIND SILVERMAN [id number] on August 06, 2024 4:25:00 AM UTC Discont inued 084637 6658 3854 023 LOVENOX 40 MG/0.4 ML SOLN 40.0 MG SUBCUT ANEOUS ONCE DAILY Start: July 29, 2024 1:00:0 0 PM UTC End: July 29, 2024 1:00:0 0 PM UTC ARVIND SILVERMAN [id number] on July 29, 2024 4:58:00 AM UTC Discont inued 187674 2134 3061 401 hydrALAZINE (APRESOLINE ) 20 MG/ML SOLN 10.0 MG INTRAV ENOUS EVERY SIX HOURS NEEDED Start: July 29, 2024 4:59:0 0 AM UTC End: July 31, 2024 4:25:1 9 AM UTC ARVIND SILVERMAN [id number] on July 31, 2024 4:25:00 AM UTC Discont inued 595826 8184 6016 088 tamsulosin (FLOMAX) 0.4 MG CAPS 0.4 MG ORAL ONCE DAILY Start: July 29, 2024 1:00:0 0 PM UTC End: July 30, 2024 12:08: 05 PM UT MENON KOBE A SSTCLAIR on July 30, 2024 12:08:00 PM UTC Discont inued 3224742 8653 3088 714 TRELEGY ELLIPTA 100-62.5-25 MCG/ACT AEPB 1.0 INH INHALE D ONCE DAILY Start: July 29, 2024 1:00:0 0 PM UTC End: August 05, 2024 5:22:4 3 PM UTC MENON KOBE A [id number] on August 06, 2024 4:25:00 AM UTC Discont inued Free Text Med ZyrTEC Allergy Oral Capsule 10 MG 10.0 MG ORAL ONCE DAILY Start: July 29, 2024 1:00:0 0 PM UTC End: July 29, 2024 1:00:0 0 PM UTC MENON KOBE A [id number] on July 29, 2024 12:17:00 PM UTC Discont inued 979285 4087 1049 601 oxybutynin chloride (DITROPAN) 5 MG TABS 5.0 MG ORAL ONCE DAILY Start: July 29, 2024 1:00:0 0 PM UTC End: August 05, 2024 9:05:0 0 PM UTC MENON KOBE A [id number] on August 06, 2024 4:25:00 AM UTC Discont inued 3162591 7333 6007 530 vibegron (GEMTESA) 75 MG TABS 75.0 MG ORAL ONCE DAILY Start: July 29, 2024 1:00:0 0 PM UTC End: August 05, 2024 5:22:4 3 PM UTC MENON KOBE A [id number] on August 06, 2024 4:25:00 AM UTC Discont inued 907741 5771 4081 309 pantoprazol e (PROTONIX) 40 MG TBEC 40.0 MG ORAL ONCE DAILY Start: July 29, 2024 1:00:0 0 PM UTC End: July 30, 2024 12:07: 41 PM UTC MENON KOBE A SSTCLAIR on July 30, 2024 12:07:00 PM UTC Discont inued Free Text Med Potassium Chloride Matilda ER Tablet Extended Release 10 MEQ 1.0 TAB ORAL ONCE DAILY Start: July 29, 2024 1:00:0 0 PM UTC End: July 29, 2024 1:00:0 0 PM UTC MENON KOBE A [id number] on July 29, 2024 12:23:00 PM UTC Discont inued Free Text Med Vitamin C ER Capsule Extended Release 500 MG 1.0 CAP ORAL ONCE DAILY Start: July 29, 2024 1:00:0 0 PM UTC End: July 29, 2024 1:00:0 0 PM UTC MENON KOBE A [id number] on July 29, 2024 12:24:00 PM UTC Discont inued Free Text Med Vitamin D3 Maximum Strength Capsule 125 MCG (5000 UT) 1.0 TAB ORAL ONCE DAILY Start: July 29, 2024 1:00:0 0 PM UTC End: July 29, 2024 1:00:0 0 PM UTC MENON KOBE A [id number] on July 29, 2024 12:24:00 PM UTC Discont inued 469143 5364 4070 825 buPROPion (WELLBUTRIN SR) 150 MG TB12 150.0 MG ORAL ONCE DAILY Start: July 29, 2024 1:00:0 0 PM UTC End: August 05, 2024 9:05:0 0 PM UTC MENON KOBE A [id number] on August 06, 2024 4:25:00 AM UTC Discont inued 066325 9125 1005 290 EZETIMIBE 10 MG TABS 10.0 MG ORAL ONCE DAILY Start: July 29, 2024 1:00:0 0 PM UTC End: July 30, 2024 12:09: 48 PM UTC MENON KOBE A SSTCLAIR on July 30, 2024 12:09:00 PM UTC Discont inued 122423 9261 7068 101 folic acid (FOLATE) 1 MG TABS 1.0 MG ORAL ONCE DAILY Start: July 29, 2024 1:00:0 0 PM UTC End: July 30, 2024 12:09: 55 PM UTC MENON KOBE A SSTCLAIR on July 30, 2024 12:10:00 PM UTC Discont inued Free Text Med Lisinopril- hydroCHLORO thiazide Tablet 10-12.5 MG 1.0 TAB ORAL ONCE DAILY Start: July 29, 2024 1:00:0 0 PM UTC End: July 29, 2024 1:00:0 0 PM UTC MENON KOBE A [id number] on July 29, 2024 12:25:00 PM UTC Discont inued Free Text Med Aspirin Buf(CaCarb- MgCarb-MgO) Tablet 325 MG 1.0 TAB ORAL ONCE DAILY Start: July 29, 2024 1:00:0 0 PM UTC End: July 29, 2024 1:00:0 0 PM UTC MENON KOBE A [id number] on July 29, 2024 12:26:00 PM UTC Discont inued Free Text Med Atorvastati n Calcium Tablet 80 MG 1.0 TAB ORAL ONCE DAILY Start: July 29, 2024 1:00:0 0 PM UTC End: July 29, 2024 1:00:0 0 PM UTC MENON KOBE A SSTCLAIR on July 29, 2024 12:29:00 PM UTC Discont inued Free Text Med Centrum Silver 50+Men Tablet 1.0 TAB ORAL ONCE DAILY Start: July 29, 2024 1:00:0 0 PM UTC End: July 29, 2024 1:00:0 0 PM UTC MENON KOBE A [id number] on July 29, 2024 12:30:00 PM UTC Discont inued Free Text Med Citalopram Hydrobromid e Tablet 40 MG 1.0 TAB ORAL ONCE DAILY Start: July 29, 2024 1:00:0 0 PM UTC End: July 29, 2024 1:00:0 0 PM UTC MENON KOBE A [id number] on July 29, 2024 12:29:00 PM UTC Discont inued Free Text Med ARIPiprazol e Tablet 2 MG 1.0 TAB ORAL ONCE DAILY Start: July 29, 2024 1:00:0 0 PM UTC End: July 29, 2024 1:00:0 0 PM UTC MENON KOBE A [id number] on July 29, 2024 12:29:00 PM UTC Discont inued [id number] 0987 8363 701 cetirizine (ZyrTEC) 10 MG TABS 10.0 MG ORAL ONCE DAILY Start: July 29, 2024 1:00:0 0 PM UTC End: August 04, 2024 3:52:4 2 PM UTC MICHEL AIME [id number] on August 04, 2024 3:52:00 PM UTC Discont inued 791526 2160 7065 321 potassium chloride (K-DUR) 10 MEQ CPCR 10.0 MEQ ORAL ONCE DAILY Start: July 29, 2024 1:00:0 0 PM UTC End: July 30, 2024 12:07: 52 PM UTC MICHEL AIME SSTCLAIR on July 30, 2024 12:08:00 PM UTC Discont inued 0090 4052 361 ascorbic acid (VITAMIN C) 500 MG TABS 500.0 MG ORAL ONCE DAILY Start: July 29, 2024 1:00:0 0 PM UTC End: July 30, 2024 12:06: 40 PM UT MICHEL SALOMON SSTCLAIR on July 30, 2024 12:06:00 PM UT Discont inued 4098 5027 288 cholecalcif anthony (VITAMIN D3) 125 MCG (5000 UNT) TA 5000. 0 UNT ORAL ONCE DAILY Start: July 29, 2024 1:00:0 0 PM UT End: August 04, 2024 3:52:4 2 PM UT MICHEL SALOMON [id number] on August 04, 2024 3:52:00 PM UTC Discont inued 438544 7291 5015 501 hydroCHLORO thiazide 12.5 MG TABS 12.5 MG ORAL ONCE DAILY Start: July 29, 2024 1:00:0 0 PM UT End: August 04, 2024 3:53:1 3 PM [facility] MICHEL SALOMON [id number] on August 04, 2024 3:53:00 PM UTC Discont inued 433205 4672 7087 501 lisinopril (ZESTRIL) 10 MG TABS 10.0 MG ORAL ONCE DAILY Start: July 29, 2024 1:00:0 0 PM UT End: July 30, 2024 12:10: 02 PM [facility] MICHEL SALOMON SSTCLAIR on July 30, 2024 12:10:00 PM UT Discont inued 386835 2170 3000 101 aspirin (JOSE) 325 MG TABS 325.0 MG ORAL ONCE DAILY Start: July 29, 2024 1:00:0 0 PM UT End: July 30, 2024 12:06: 49 PM [facility] MICHEL SALOMON SSTCLAIR on July 30, 2024 12:06:00 PM UT Discont inued 800890 0759 4608 561 citalopram (CeleXA) 20 MG TABS 40.0 MG ORAL ONCE DAILY Start: July 29, 2024 1:00:0 0 PM UT End: July 30, 2024 12:09: 33 PM [facility] MICHEL SALOMON SSTCLAIR on July 30, 2024 12:09:00 PM UTC Discont inued 612120 4524 8000 613 ARIPiprazol e (ABILIFY) 2 MG TABS 2.0 MG ORAL ONCE DAILY Start: July 29, 2024 1:00:0 0 PM UTC End: August 05, 2024 5:22:4 3 PM UT MICHEL SALOMON [id number] on August 06, 2024 4:25:00 AM UTC Discont inued 0090 4053 961 multiple vitamin (ONE-A-DAY) TABS 1.0 TAB ORAL ONCE DAILY Start: July 29, 2024 1:00:0 0 PM UTC End: July 30, 2024 12:10: 27 PM UT MICHEL SALOMON SSTCLAIR on July 30, 2024 12:10:00 PM UTC Discont inued 0090 4052 361 ascorbic acid (VITAMIN C) 500 MG TABS 500.0 MG ORAL ONCE DAILY Start: July 30, 2024 1:00:0 0 PM UTC End: August 04, 2024 3:52:4 2 PM UT MICHEL SALOMON [id number] on August 04, 2024 3:52:00 PM UTC Discont inued 932025 7038 3000 101 aspirin (JOSE) 325 MG TABS 325.0 MG ORAL ONCE DAILY Start: July 30, 2024 1:00:0 0 PM UTC End: July 31, 2024 12:58: 06 PM UT MICHEL SALOMON [id number] on July 31, 2024 12:58:00 PM UTC Discont inued 678242 6303 9048 920 atorvastati n (LIPITOR) 20 MG TABS 40.0 MG ORAL ONCE DAILY Start: July 30, 2024 1:00:0 0 PM UTC End: August 05, 2024 5:22:4 3 PM UT SAMUELS WALLEANNAH [id number] on August 06, 2024 4:25:00 AM UTC Discont inued 000442 7911 4088 309 pantoprazol e (PROTONIX) 40 MG TBEC 40.0 MG ORAL ONCE DAILY Start: July 30, 2024 1:00:0 0 PM UTC End: August 05, 2024 5:22:4 3 PM UT MENON KOBE A [id number] on August 06, 2024 4:25:00 AM UTC Discont inued 265124 8476772113 5219 0099 321 potassium chloride (K-DUR) 10 MEQ CPCR 10.0 MEQ ORAL ONCE DAILY Start: July 30, 2024 1:00:0 0 PM UTC End: July 31, 2024 12:58: 06 PM UTC MICHELHONG SALOMON [id number] on July 31, 2024 12:58:00 PM UTC Discont inued 379221 7602 6016 088 tamsulosin (FLOMAX) 0.4 MG CAPS 0.4 MG ORAL ONCE DAILY Start: July 30, 2024 1:00:0 0 PM UTC End: August 05, 2024 5:22:4 3 PM UT MENON KOBE A [id number] on August 06, 2024 4:25:00 AM UTC Discont inued 070608 7397 4608 561 citalopram (CeleXA) 20 MG TABS 40.0 MG ORAL ONCE DAILY Start: July 30, 2024 1:00:0 0 PM UTC End: August 05, 2024 5:22:4 3 PM UTC MICHELHONG CHRISTIANA [id number] on August 06, 2024 4:25:00 AM UTC Discont inued 666680 7346 4053 601 clopidogrel (PLAVIX) 75 MG TABS 75.0 MG ORAL ONCE DAILY Start: July 30, 2024 1:00:0 0 PM UTC End: August 05, 2024 9:05:0 0 PM UTC MICHEL SALOMON [id number] on August 06, 2024 4:25:00 AM UTC Discont inued 413243 1614 1005 290 EZETIMIBE 10 MG TABS 10.0 MG ORAL ONCE DAILY Start: July 30, 2024 1:00:0 0 PM UTC End: July 31, 2024 12:58: 06 PM UTC MENON KOBE A [id number] on July 31, 2024 12:58:00 PM UTC Discont inued 652811 6134 7068 101 folic acid (FOLATE) 1 MG TABS 1.0 MG ORAL ONCE DAILY Start: July 30, 2024 1:00:0 0 PM UTC End: August 04, 2024 3:52:4 2 PM UTC MENON KOBE A [id number] on August 04, 2024 3:52:00 PM UTC Discont inued 601683 9941 7013 501 lisinopril (ZESTRIL) 10 MG TABS 10.0 MG ORAL ONCE DAILY Start: July 30, 2024 1:00:0 0 PM UTC End: August 05, 2024 5:22:4 3 PM UTC MICHEL AIME [id number] on August 06, 2024 4:25:00 AM UTC Discont inued 0090 4053 961 multiple vitamin (ONE-A-DAY) TABS 1.0 TAB ORAL ONCE DAILY Start: July 30, 2024 1:00:0 0 PM UTC End: August 04, 2024 3:52:4 2 PM UTC MICHEL AIME [id number] on August 04, 2024 3:52:00 PM UTC Discont inued 7139 9862 701 ASPIRIN LOW DOSE 81 MG TBEC 81.0 MG ORAL ONCE DAILY Start: August 01, 2024 1:00:0 0 PM UTC End: August 05, 2024 5:22:4 3 PM UT SAMUELS WALIAH [id number] on August 06, 2024 4:25:00 AM UTC Discont inued 519661 1698 7028 265 azithromyci n (ZITHROMAX) 250 MG TABS 500.0 MG ORAL ONCE DAILY Start: July 31, 2024 5:46:0 0 PM UTC End: August 05, 2024 5:22:4 3 PM UT SAMUELS WALIAH [id number] on August 06, 2024 4:25:00 AM UTC Discont inued 1047052 2293 9733 201 cefTRIAXone (ROCEPHIN) 1 GM SOLR 1.0 GM INTRAV ENOUS EVERY 24 HOURS 100.0 ML/HR Start: July 31, 2024 5:46:0 0 PM UTC End: August 02, 2024 10:18: 19 AM UTC SAMUELS WALIAH [id number] on August 02, 2024 10:18:00 AM UTC Discont inued 4998213 7179 8055 311 sodium chloride 0.9% MB+ SOLN 50.0 ML INTRAV ENOUS EVERY 24 HOURS 100.0 ML/HR Start: July 31, 2024 5:46:0 0 PM UTC End: August 02, 2024 10:18: 19 AM UT SAMUELS WALIAH [id number] on August 02, 2024 10:18:00 AM UTC Discont inued 365066 2399 7065 321 potassium chloride (K-DUR) 10 MEQ CPCR 10.0 MEQ ORAL ONE TIME ONLY (SCHEDULED DOSE) Start: August 01, 2024 12:11: 00 PM UT End: August 01, 2024 12:11: 00 PM [facility] on August 01, 2024 12:10:00 PM UT Discont inued 383366 2840 1005 290 EZETIMIBE 10 MG TABS 10.0 MG ORAL ONE TIME ONLY (SCHEDULED DOSE) Start: August 01, 2024 12:13: 00 PM UT End: August 01, 2024 12:13: 00 PM [facility] ED on August 01, 2024 12:11:00 PM UT Discont inued [id number] 201 cefTRIAXone (ROCEPHIN) 1 GM SOLR 1.0 GM INTRAV ENOUS EVERY TWELVE HOURS 100.0 ML/HR Start: August 02, 2024 10:30: 00 AM UT End: August 05, 2024 5:22:4 3 PM [facility] [id number] on August 06, 2024 4:25:00 AM UT Discont inued [id number] 311 sodium chloride 0.9% MB+ SOLN 50.0 ML INTRAV ENOUS EVERY TWELVE HOURS 100.0 ML/HR Start: August 02, 2024 10:30: 00 AM UT End: August 05, 2024 5:22:4 3 PM [facility] [id number] on August 06, 2024 4:25:00 AM UT Discont inued [id number] 321 potassium chloride (K-DUR) 10 MEQ CPCR 10.0 MEQ ORAL ONE TIME ONLY (SCHEDULED DOSE) Start: August 02, 2024 12:01: 00 PM UT End: August 02, 2024 12:01: 00 PM [facility] ED on August 02, 2024 12:01:00 PM UT Discont inued [id number] 290 EZETIMIBE 10 MG TABS 10.0 MG ORAL ONE TIME ONLY (SCHEDULED DOSE) Start: August 02, 2024 12:03: 00 PM [facility] End: August 02, 2024 12:03: 00 [facility] August 02, [facility]24 12:02:00 PM UT Discont inued [id number] sennosides (SENOKOT) 8.6 MG TABS 8.6 MG ORAL TWICE A DAY Start: August 03, 2024 5:15:0 0 PM UT End: August 05, 2024 5:22:4 3 PM [facility] [id number] on August 06, 2024 4:25:00 AM UTC Discont inued [id number] 198 MIRALAX PACKET 17 GM PACK 17.0 GM ORAL ONCE DAILY Start: August 03, 2024 5:15:0 0 PM UT End: August 05, 2024 5:22:4 3 PM [facility] [id number] on August 06, 2024 4:25:00 AM UT Discont inued [id number] potassium chloride (K-DUR) 20 MEQ TBCR 40.0 MEQ ORAL GIVE ONE DOSE NOW Start: August 04, 2024 10:24: 00 AM UT End: August 04, 2024 10:47: 40 AM [facility] [id number] on August 04, 2024 10:47:00 AM UT Discont inued [id number] 321 potassium chloride (K-DUR) 10 MEQ CPCR 10.0 MEQ ORAL ONE TIME ONLY (SCHEDULED DOSE) Start: August 04, 2024 12:23: 00 PM UT End: August 04, 2024 12:23: 00 PM [facility] ED on August 04, 2024 12:21:00 PM UT Discont inued [id number] 1005 290 EZETIMIBE 10 MG TABS 10.0 MG ORAL ONE TIME ONLY (SCHEDULED DOSE) Start: August 04, 2024 12:23: 00 PM UT End: August 04, 2024 12:23: 00 PM [facility] on August 04, 2024 12:22:00 PM UT Discont inued [id number] aspirin (JOSE) 325 MG TABS 325.0 MG ORAL ONE TIME ONLY (SCHEDULED DOSE) Start: August 04, 2024 12:25: 00 PM UT End: August 04, 2024 12:25: 00 PM [facility] ED on August 04, 2024 12:23:00 PM UT Discont inued [id number] potassium chloride (K-DUR) 20 MEQ TBCR 20.0 MEQ ORAL ONE TIME ONLY (SCHEDULED DOSE) Start: August 04, 2024 1:24:0 0 PM [place] End: August 04, 2024 1:24:0 0 PM [facility] ED on August 04, 2024 1:22:00 PM [place] Discont inued [id number] 5015 501 hydroCHLORO thiazide 12.5 MG TABS 12.5 MG ORAL ONE TIME ONLY (SCHEDULED DOSE) Start: August 05, 2024 12:09: 00 PM [facility] End: August 05, 2024 12:09: 00 PM [facility] ED on August 05, 2024 12:07:00 PM [place] Discont inued 4098 5027 288 cholecalcif anthony (VITAMIN D3) 125 MCG (5000 UNT) TA 5000. 0 UNT ORAL ONE TIME ONLY (SCHEDULED DOSE) Start: August 05, 2024 12:09: 00 PM [place] End: August 05, 2024 12:09: 00 PM [facility] ED on August 05, 2024 12:07:00 PM [place] Discont inued [id number] 4686 7065 321 potassium chloride (K-DUR) 10 MEQ CPCR 10.0 MEQ ORAL ONE TIME ONLY (SCHEDULED DOSE) Start: August 05, 2024 12:09: 00 PM [place] End: August 05, 2024 12:09: 00 PM [facility] ED on August 05, 2024 12:07:00 PM UT Discont inued 0090 8022 361 ascorbic acid (VITAMIN C) 500 MG TABS 500.0 MG ORAL ONE TIME ONLY (SCHEDULED DOSE) Start: August 05, 2024 12:09: 00 PM [facility] End: August 05, 2024 12:09: 00 PM [facility] ED on August 05, 2024 12:08:00 PM [place] Discont inued 151733 9470 1005 290 EZETIMIBE 10 MG TABS 10.0 MG ORAL ONE TIME ONLY (SCHEDULED DOSE) Start: August 05, 2024 12:11: 00 PM [place] End: August 05, 2024 12:11: 00 PM [facility] ED on August 05, 2024 12:09:00 PM [place] Discont inued [id number] 4200 8363 701 cetirizine (ZyrTEC) 10 MG TABS 10.0 MG ORAL ONE TIME ONLY (SCHEDULED DOSE) Start: August 05, 2024 12:11: 00 PM [place] End: August 05, 2024 12:11: 00 PM [facility] ED on August 05, 2024 12:10:00 PM [facility] Discont inued 949173 5262 7068 101 folic acid (FOLATE) 1 MG TABS 1.0 MG ORAL ONE TIME ONLY (SCHEDULED DOSE) Start: August 05, 2024 12:11: 00 PM [place] End: August 05, 2024 12:11: 00 PM [facility] ED on August 05, 2024 12:10:00 PM [place] Discont inued 0090 4053 961 multiple vitamin (ONE-A-DAY) TABS 1.0 TAB ORAL ONE TIME ONLY (SCHEDULED DOSE) Start: August 05, 2024 12:11: 00 PM [facility] End: August 05, 2024 12:11: 00 PM [facility] ED on August 05, 2024 12:10:00 PM [facility] SOCIAL HISTORY SOCIAL HISTORY SNOMED-CT Social History Element Description Effective Dates Offered Cessation Comment UpdatedBy [id number] Current Tobacco smoking status Current Every Day Smoker [id number] on July 28, 2024 4:27:40 AM [facility] SOCIAL HISTORY - Gender Sex: Male SOCIAL HISTORY - Status : status i nformation is not available Intention in Next Year: intention information is not available SOCIAL HISTORY - Sexual Behavior Sexual Orientation Gender Identity SNOMED-CT Description SNO MED -CT Description Activity Level No of Partners Partner Type UpdatedBy Information is not available VITAL SIGNS PATIENT VITAL SIGNS This section displays the mo st recent value for each vital sign as of August 09, 2024 4:08:30 PM [facility] Loinc Code Vital Sign Activity Date Result Updated By 00510-0 Blood glucose monitors May 29, 2 025 10:21:00 AM UTC 94.0 mg/dL [id number] on July 29, 2024 10:21:28 AM UTC 8302-2 Body height July 28, 2024 4:33:03 AM UTC 177.8 cm (70.0 in) [id number] on July 28, 2024 4:33:03 AM UTC 11165-0 Body mass index (BMI ) [Ratio] July 28, 2024 4:33:03 AM UTC 26.571 kg/m2 [id number] on July 28, 2024 4:33:03 AM UTC 3140-1 Body Surface Area Derived From Formula July 28, 2024 4:33:03 AM UTC 2.0202 m2 [id number] on July 28, 2024 4:33:03 AM UTC 8310-5 Body temperature August 05, 2024 7:35:00 PM UTC 97.7 [degF] [id number] on August 05, 2024 7:55:05 PM UTC 54413-6 Body weight Measured July 28 4:33:03 AM UTC 84.0 kg (185.0 lb) [id number] on July 28, 2024 4:33:03 AM UTC 8462-4 Diastolic blood pressure August 05, 2024 7:35:00 PM UTC 82.0 mm[Hg] [id number] on August 05, 2024 7:55:05 PM UTC 8867-4 Heart rate August 05, 2024 7:35:00 PM UTC 81 /min [id number] on August 05, 2024 7:55:05 PM UTC 3150-0 Inhaled oxygen concentration August 04, 2024 11:59:00 AM UTC 26.0 % [id number] on August 04, 2024 11:59:45 AM UTC 3151-8 Inhaled oxygen flow rate August 05, 2024 12:20:00 PM UTC 1.0 L/min [id number] on August 05, 2024 1:02:06 PM UTC 8478-0 Mean blood pressure August 05, 2024 7:35:00 PM UTC 96.0 mm[Hg] [id number] on August 05, 2024 7:55:05 PM UTC 95950-1 Oxygen saturation in Arterial blood by Pulse oximetry August 05, 2024 7:35:00 PM [place] 92.0 % [id number] on August 05, 2024 7:55:05 PM [facility] 9279-1 Respiratory rate August 05, 2024 7:35:00 PM UT 20 /min [id number] on August 05, 2024 7:55:05 PM [facility] 8480-6 Systolic blood pressure August 05, 2024 7:35:00 PM UT 120.0 mm[Hg] [id number] on August 05, 2024 7:55:05 PM [facility] 74612-0 Vital capacity [Volu me] Respiratory system by Spirometry August 05, 2024 12:20:00 PM UT 1250.0 ml [id number] on August 05, 2024 1:02:06 PM [facility] PEDIATRIC GROWTH CHART - VITAL SIGNS This section displays Head C ircumference Percentile, Weight for Length Percentile and BMI Percentile Loinc Code Pediatric Measure Age (Months) Result Updat ed By No Pediatric Growth Chart Pe rcentile Information Available. GOALS PATIENT GOALS Goal Assigned Date Updated By АНДРЕЙ QUEVEDO REMAINS F REE FROM COMPLICATIONS FOR MED-SURG ADMIT DURING THE CARE PERIOD July 28, 2024 [id number] on July 29, 2024 12:42:27 AM [facility] HEALTH CONCERNS Problems Concern Status Health Concern problem infor mation not available. Smoking Status Status Years Used Consumed packs p er day Health Concern smoking histo ry information not available. Family History Concern Status Health Concern family histor y information not available. ENCOUNTERS ENCOUNTER INFORMATION Reason for Visit WEAKNESS - CONCERN F OR ISCHEMIC STROKE VS MOYAMOYA Admission July 28, 2024 11:31:[address] [id number] Discharge August 05, 2024 9:05:00 PM [facility] DISC HARGED TO HOME OR SELF CARE ENCOUNTER DIAGNOSES Note Title Discharge Summary Date Of Service August 05, 2024 4:57:16 PM UT Created By [id number] on August 05 4:57:16 PM UT Signed By [id number] on August 07 3:26:03 PM [facility] Code System Diagnosis Onset Date [id number] SNOMED-CT Community acquired pneumonia 28543409 SNOMED-CT Chronic obstructive pulmonar y disease 27059030 SNOMED-CT Hyperlipidemia 07989802 SNOMED-CT Essential hypertension 985074005 SNOMED-CT Cerebrovascular accident 596459869 SNOMED-CT Weakness present ABSTRACT DIAGNOSES Code System Diagnosis Updated By I63.9 ICD10 CEREBRAL INFARCTION, UNSPECI FIED [id number] on August 06, 2024 1:28:40 PM UT I63.9 ICD10 CEREBRAL INFARCTION, UNSPECI FIED [id number] on August 06, 2024 1:28:40 PM UT A41.9 ICD10 SEPSIS, UNSPECIFIED ORGANISM [id number] on August 06, 2024 1:28:40 PM UTC J18.9 ICD10 PNEUMONIA, UNSPECIFIED ORGAN ISM [id number] on August 06, 2024 1:28:40 PM UTC J96.01 ICD10 ACUTE RESPIRATORY FAILURE WI TH HYPOXIA [id number] on August 06, 2024 1:28:40 PM UTC J44.0 ICD10 CHRONIC OBSTRUCT ADRIANNE PULMONARY DISEASE WITH (ACUTE) LOWER RESPIRATORY INFECTION [id number] on August 06, 2024 1:28:40 PM UTC J98.11 ICD10 ATELECTASIS [id number] on August 06, 2024 1:28:40 PM UTC R47.01 ICD10 APHASIA [id number] on August 06, 2024 1:28:40 PM UTC F41.9 ICD10 ANXIETY DISORDER, UNSPECIFIE D [id number] on August 06, 2024 1:28:40 PM UTC F32.A ICD10 DEPRESSION, UNSPECIFIED [id number] on August 06, 2024 1:28:40 PM UT E78.5 ICD10 HYPERLIPIDEMIA, UNSPECIFIED [id number] on August 06, 2024 1:28:40 PM UT Z86.73 ICD10 PERSONAL HISTORY OF TRANSIENT ISCHEMIC ATTACK (TIA), AND CEREBRAL INFARCTION WITHOUT RESIDUAL DEFICITS [id number] on August 06, 2024 1:28:40 PM UTC R13.10 ICD10 DYSPHAGIA, UNSPECIFIED [id number] on August 06, 2024 1:28:40 PM UTC E87.6 ICD10 HYPOKALEMIA [id number] on August 06, 2024 1:28:40 PM UTC T50.2X5A ICD10 ADVERSE EFFECT O F CARBONIC-ANHYDRASE INHIBITORS, BENZOTHIADIAZIDES AND OTHER DIURETICS, INITIAL ENCOUNTER [id number] on August 06, 2024 1:28:40 PM UTC G83.11 ICD10 MONOPLEGIA OF LO WER LIMB AFFECTING RIGHT DOMINANT SIDE [id number] on August 06, 2024 1:28:40 PM [facility] R47.1 ICD10 DYSARTHRIA AND ANARTHRIA FGE 9811 on August 06, 2024 1:28:40 PM [facility] R91.1 ICD10 SOLITARY PULMONARY NODULE FG [id number] on August 06, 2024 1:28:40 PM [facility] R29.702 ICD10 NIHSS SCORE 2 [id number] on Aug 1:28:40 PM [facility] CARE TEAM Care Filler Mixer Role ANNE COLE Referring AIME PEARSON Admitting ANNE COLE Primary Care AIME PEARSON Primary Attending HOSPITAL DISCHARGE INSTRUCTION DISCHARGE INSTRUCTION Encounter [id number] Admit Date July 28, 2024 11:31:0 0 AM [facility] Discharge Date August 05, 2024 9:05:00 PM [facility] PATIENT EDUCATION SUMMARY Patient/Visit Information: Patient Name: АНДРЕЙ QUEVEDO Diag: Attending Caregiver: MICHEL SALOMON Discharge Instruction Sheets Provided: BEFAST-Stroke Warning Signs Chronic Obstructive Pulmonary Disease Exacerbation Chronic Obstructive Pulmonary Disease Community-Acquired Pneumonia, Adult, Ktpp-vs-Phol COVID-19 CDC-EN Discharge Information Fall Prevention in Hospitals and in the Home [facility] Pain and Responsible Opioid (Pain Medication) Management High Cholesterol Hypertension, Adult, Vecd-xd-Dgev KYNECT- HELP Medication Side Effects Stroke Prevention, Mzsm-ip-Vayz Suicide - Managing your Feelings Patient Instructions: Followup Appointments/Instructions: HISTORY AND PHYSICAL NOTE DISCHARGE SUMMARY NOTE PROGRESS NOTE CARE TEAM CARE stress engineer Role on Team Status Start Date End Date Update d By MICHEL VALENTIN Attending normal July 28, 2024 11:01:30 AM [facility] July 28, 2024 4:00:00 AM [facility] [id number] on July 28, 2024 11:01:30 AM [facility] MICHEL VALENTIN Admitting normal July 28, 2024 11:01:30 AM [facility] July 28, 2024 4:00:00 AM [facility] [id number] on July 28, 2024 11:01:30 AM [facility] DOUGLAS VALENTIN Referring normal July 28, 2024 4:28:34 AM [facility] July 28, 2024 4:00:00 AM [facility] [id number] on July 28, 2024 11:01:30 AM [place] CIRO CONLEY Attending normal July 28, 2024 4:28:34 AM UT July 28, 2024 11:01:30 AM [facility] [id number] on July 28, 2024 11:01:30 AM [facility] CIRO CONLEY Admitting normal July 28, 2024 4:28:34 AM [facility] July 28, 2024 11:01:30 AM [facility] [id number] on July 28, 2024 11:01:30 AM [facility] DOUGLAS VALENTIN [facility] normal July 28, 2024 4:15:18 AM [facility] July 28, 2024 6:54:09 PM [facility] [id number] on July 28, 2024 11:01:30 AM [facility]
[2024-08-22 16:59] VITALS: BP 129/85; PULSE 74; PULSE 76; RESP 22; TEMP 36.3; O2SAT 88; O2SAT 90; BMI 23.7
--- NOTE | 2024-08-22 17:02 | CT_ITS ---
PROCEDURE INFORMATION: Exam: CTA Neck With Contrast Exam date and time: 08/22/2024 5:31 PM Age: 59 years old Clinical indication: Stroke-like symptoms; Other: Possible stroke TECHNIQUE: Imaging protocol: Computed tomographic angiography of the neck with contrast. Exam focused on the cervical segments of the vasculature. 3D rendering (Not supervised by radiologist): MIP and/or 3D reconstructed images were created by the technologist. Radiation optimization: All CT scans at this facility use at least one of these dose optimization techniques: automated exposure control; mA and/or kV adjustment per patient size (includes targeted exams where dose is matched to clinical indication); or iterative reconstruction. Contrast material: ISO 370; Contrast volume: 80 ml; Contrast route: INTRAVENOUS (IV); COMPARISON: CT HEAD/BRAIN WO CON 08/22/2024 5:29 PM FINDINGS: Limitations: Patient motion. Limited by artifact arising from metallic dental hardware/dental amalgam. Right common carotid artery: Mild calcification at the right common carotid bifurcation without significant stenosis. Right internal carotid artery: Right ICA is diffusely small caliber throughout. Right external carotid artery: No occlusion or stenosis of the origin. Left common carotid artery: No stenosis. No dissection or occlusion. Left internal carotid artery: No stenosis of the extracranial segment. No dissection or occlusion. Left external carotid artery: No occlusion or stenosis of the origin. Right vertebral artery: There is occlusion of the distal right vertebral artery V3 segment. Left vertebral artery: Left vertebral artery is dominant. Thyroid: There are few thyroid nodules measuring up to 5 mm on the right. Soft tissues: Normal. No significant soft tissue swelling. Bones/joints: Degenerative change involving the spine. Lungs: Pulmonary emphysema. Left upper lobe pulmonary nodule measures 1.5 cm. IMPRESSION: 1. 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 2. Right ICA is diffusely small caliber throughout. 3. Left upper lobe pulmonary nodule measures 1.5 cm. For both low risk and high risk patients, consider CT Chest at 3 months, PET/CT or biopsy. (Reference: Sinan) COMMENTS: Consistent with the [employer]'s Incidental Findings Committee white paper (J Am Miguel Radiol 2015): In patients aged 35 years and older with an incidental thyroid nodule equal to or greater than 1.[address], MRI or extrathyroidal US, further evaluation with dedicated thyroid US is recommended for patients with normal life expectancy and without comorbidities. For smaller nodules without suspicious features, no further evaluation or follow up is recommended. REFERENCES: 1. Sinan Maldonado, et al. Guidelines for Management of Incidental Pulmonary Nodules Detected on CT Images: From the Fleischner Society 2017. Radiology. 2017;284(1):228-243. 2. NASCET CRITERIA. The degree of stenosis in the cervical segment of the internal carotid artery is based on NASCET criteria. Normal is no stenosis. Mild is less than 50% stenosis. Moderate is 50-69% stenosis. Severe is 70% to 99% stenosis. Total occlusion is no detectable patent lumen.
--- NOTE | 2024-08-22 17:02 | CT_ITS ---
PROCEDURE INFORMATION: Exam: CT Head Without Contrast Exam date and time: 08/22/2024 5:29 PM Age: 59 years old Clinical indication: Stroke-like symptoms; Other: Possible stroke TECHNIQUE: Imaging protocol: Computed tomography of the head without contrast. Radiation optimization: All CT scans at this facility use at least one of these dose optimization techniques: automated exposure control; mA and/or kV adjustment per patient size (includes targeted exams where dose is matched to clinical indication); or iterative reconstruction. Other technique: STROKE PROTOCOL was implemented. COMPARISON: No relevant prior studies available. FINDINGS: Limitations: Patient motion. Brain: Age-related volume loss. Chronic infarcts at the bilateral basal ganglia/melendez radiata. No acute intracranial hemorrhage. No significant intracranial mass effect. Cerebral ventricles: Ventriculomegaly is commensurate for degree of volume loss. Paranasal sinuses: Moderate paranasal sinus disease. Mastoid air cells: Partial opacification of the bilateral mastoid air cells. Bones: Unremarkable. No acute fracture. Soft tissues: Unremarkable. IMPRESSION: No acute intracranial abnormality. ASSESSMENT: ASPECTS ([place] Stroke Program Early CT Score) is 10.
--- NOTE | 2024-08-22 17:02 | CT_ITS ---
PROCEDURE INFORMATION: Exam: CTA Head With Contrast, Arteriography Exam date and time: 08/22/2024 5:31 PM Age: 59 years old Clinical indication: Stroke-like symptoms; Other: Possible stroke TECHNIQUE: Imaging protocol: Computed tomographic angiography of the head with contrast. Exam focused on the arteries. 3D rendering (Not supervised by radiologist): MIP and/or 3D reconstructed images were created by the technologist. Radiation optimization: All CT scans at this facility use at least one of these dose optimization techniques: automated exposure control; mA and/or kV adjustment per patient size (includes targeted exams where dose is matched to clinical indication); or iterative reconstruction. Contrast material: ISO 370; Contrast volume: 80 ml; Contrast route: INTRAVENOUS (IV); COMPARISON: CT HEAD/BRAIN WO CON 08/22/2024 5:29 PM FINDINGS: ANTERIOR CIRCULATION: Right internal carotid artery: Right ICA is diffusely small caliber throughout. There is occlusion of the far distal right ICA. Right middle cerebral artery: There is chronic occlusion of the right MCA M1 segment with reconstitution via numerous small collaterals. Right anterior cerebral artery: Diminutive right JOS EC A1 segment. Left internal carotid artery: Calcification involving the left carotid siphon without definite significant stenosis. Left middle cerebral artery: No occlusion or significant stenosis. No aneurysm. Left anterior cerebral artery: No occlusion or significant stenosis. No aneurysm. POSTERIOR CIRCULATION: Right vertebral artery: Age-indeterminate occlusion of the intracranial right vertebral artery. Left vertebral artery: Left vertebral artery is dominant. Mild left vertebral artery V4 stenosis. Basilar artery: No occlusion or significant stenosis. No aneurysm. Right posterior cerebral artery: No occlusion or significant stenosis. No aneurysm. Left posterior cerebral artery: origin of the left posterior cerebral artery with moderate to severe proximal stenosis. Diffusely small caliber left BOOM MAN. IMPRESSION: 1. Age-indeterminate occlusion of the right intracranial vertebral artery. 2. 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 3. origin of the left BOOM MAN with moderate to severe proximal stenosis. 4. Additional findings as above.
--- NOTE | 2024-08-22 17:03 | HMH.EDGENADL ---
Discharge Plan Disposition Patient Disposition: Home, Self-Care Prescriptions Prescriptions: New azithromycin [Zithromax Z-Rajeev] 250 mg tablet See Rx Instructions .ROUTE .COMPLEX Qty: 6 0RF Rx Instructions: For 250 mg dose pack: take 500 mg today (day 1), then 250 mg for 4 days (days 2-5) amoxicillin-pot clavulanate 875-125 mg tablet 1 tab PO BID Qty: 20 0RF Referrals Follow up/Referrals: Provider,Referral, MD [Primary Care Provider, Medical] - See instructions Activity Restrictions/Add. Instructions Additional Instructions/Restrictions: Today you were evaluated in the emergency department diagnosed with a left pneumonia, please take your oral antibiotics as directed. Your CT scan showed that you are not having an acute stroke, we consulted [facility] who advises that there is no further interventions needed. Please follow-up with PCP within 24 hours. Please return to the ED for any worsening of your condition. Clinical Impressions Clinical Impression: Left lower lobe pneumonia Qualifiers: Pneumonia type: due to unspecified organism Qualified Code(s): J18.9 - Pneumonia, unspecified organism Instructions Patient Instructions: Pneumonia--Adult Print Language Print Language: Irish Discharge ED Provider: Fatmata Diaz General Adult HPI <Lauren Stinson APRN - Last Filed: 08/22/24 20:50> General Chief complaint: Altered Mental Status Stated complaint: arm pain Time Seen by Provider: 08/22/24 17:02 History of Present Illness HPI narrative: patient is a 59-year-old male PMHx hemiplegia, CVA, dysphagia, history of sepsis, history of respiratory failure with hypoxia, diabetes type 2, hypertension, COPD, hyperlipidemia who presents to the ED from the alf via EMS. Related Data Previous Rx's ?Medication ?Instructions ?Recorded amoxicillin 875 mg-potassium 1 tab PO BID #20 tabs 08/22/24 clavulanate 125 mg tablet azithromycin 250 mg tablet See Rx Instructions PO .COMPLEX #6 08/22/24 (Zithromax Z-Rajeev) tabs Allergies Allergy/AdvReac Type Severity Reaction Status Date / Time No Known Allergies Allergy Verified 08/22/24 17:43 PFSH <Lauren Stinson APRN - Last Filed: 08/22/24 20:50> [facility] Disclaimer: The information contained in this section may have been updated after the patient was seen, as this information can be updated by other users. Social History (Updated 08/22/24 @ 20:50 by Lauren Stinson APRN) Smoking Status: Never smoker alcohol intake: never current occupational status: unemployed Travel in the last 8 weeks?: None Have you lived/traveled outside US in past 30 days?: No Contact w/someone who lives/traveled outside US past 30 days?: No Exposure to someone with infectious disease in past 14 days?: No Do you have a fever (greater than 100.4 F or 38 C)?: No Have you tested positive for COVID-19?: No Exposed to someone with COVID-19 in past 14 days?: No Do you have a sore throat?: No Do you have a cough?: No Do you have any weakness?: No Do you have any diarrhea?: No Are you experiencing any unusual bleeding?: No Do you have any muscle aches/pain?: No Do you have any abdominal pain?: No Are you experiencing loss of taste or smell?: No <Lauren Stinson APRN - Last Filed: 08/22/24 20:50> ROS Obtained: Yes Systems reviewed as appropriate & no additional complaints except as documented Physical Exam <Lauren Stinson APRN - Last Filed: 08/22/24 20:50> General General appearance: alert and in no apparent distress Head Head exam: atraumatic Eye Eye exam: Present PERRL and EOMI ENT ENT exam: Present normal exam Neck Neck exam: Present normal inspection and full ROM Chest Chest inspection: Present normal inspection Respiratory Respiratory exam: Present wheezes Cardiovascular Cardiovascular exam: Present regular rate Abdominal Exam Abdominal exam: Present soft Neurological Exam Neurological exam: Present alert and other (right sided facial droop, R sided weakness ) Skin Skin exam: Present warm and dry Medical Decision Making <Lauren Stinson APRN - Last Filed: 08/22/24 20:50> Medical Records Screening: Per USPSTF and CDC recommendations, given the prevalence of disease in our region, it is our hospital?s policy to screen for HIV and viral Hepatitis for all patients aged 18 and over and those with ongoing risk factors. Robert Inquiry Pt receiving controlled substance: No Vital Signs: 08/22/24 16:59 08/22/24 16:59 08/22/24 18:00 Temperature 97.4 F L Temperature Source Oral Pulse Rate 76 81 Pulse Rate [Right] 74 Respiratory Rate 22 22 Blood Pressure 129/85 108/79 L Blood Pressure [Right Arm] 129/85 Blood Pressure Mean [Right Arm] 99 02 Sat by Pulse Oximetry 88 L 90 L 94 L Oxygen Delivery Method Room Air Oxygen Flow Rate (LPM) 08/22/24 18:30 08/22/24 19:35 08/22/24 21:35 Temperature 98.4 F Temperature Source Oral Pulse Rate 70 76 Pulse Rate [Right] Respiratory Rate 18 22 Blood Pressure 127/72 133/88 Blood Pressure [Right Arm] Blood Pressure Mean [Right Arm] 02 Sat by Pulse Oximetry 95 94 L Oxygen Delivery Method Nasal Cannula Nasal Cannula Oxygen Flow Rate (LPM) 2 Lab Data Lab Results 08/22/24 17:05: WBC 8.8, RBC 4.54 L, Hgb 13.8 L, Hct 40.2 L, MCV 88.5, MCH 30.4, MCHC 34.3, RDW 13.0, Plt Count 337, MPV 10.7 H, Neut % (Auto) 64.6, Lymph % (Auto) 22.2, [place] % (Auto) 8.5, Eos % (Auto) 3.6, Baso % (Auto) 0.9, Neut # (Auto) 5.7, Lymph # (Auto) 2.0, [place] # (Auto) 0.8, Eos # (Auto) 0.3, Baso # (Auto) 0.1, PT 11.6, INR 1.05, APTT 29.1, Sodium 136, Potassium 4.3, Chloride 104, Carbon Dioxide 28, Anion Gap 8.3, BUN 20, Creatinine 1.00, Estimated Creat Clear 88, Estimated GFR 77, Est GFR ( Amer) 93, Glucose 108 H, Calcium 9.6, Total Bilirubin 0.6, AST 36, ALT 38, Alkaline Phosphatase 126, Troponin I < 0.01, Total Protein 7.6, Albumin 3.9, Globulin 3.7 H, Albumin/Globulin Ratio 1.1, Triglycerides 77, Cholesterol 122 L, LDL Cholesterol Direct 61.83 L, VLDL Cholesterol 15, HDL Cholesterol 27 L, Cholesterol/HDL Ratio 4.5 H, Plasma/Serum Alcohol < 10 08/22/24 17:13: VBG pH 7.40, VBG pCO2 43.1, VBG pO2 86.9 H, VBG HCO3 26.2, VBG Total CO2 27.5 H, VBG O2 Saturation 96.4 H, VBG Base Excess 1.5, VBG Lactic Acid 1.9 08/22/24 17:05 08/22/24 17:05 Orders (Tests/Meds): ED MEDICATIONS Discontinued Medications Generic Name Dose Route Start Last Admin Trade Name Freq PRN Reason Stop Dose Admin Ceftriaxone Sodium 1 gm/ 50 mls @ 100 mls/hr 08/22/24 19:08 08/22/24 19:23 Sodium Chloride IV 08/22/24 19:37 100 mls/hr ONCE ONE Administration Azithromycin 500 mg/ Sodium 250 mls @ 250 mls/hr 08/22/24 19:15 08/22/24 20:08 Chloride IV 09/01/24 19:14 250 mls/hr Q24H ÁNGELA Administration Iopamidol 80 ml 08/22/24 17:31 08/22/24 17:32 Iopamidol-370 (76%);100ml Bottle IV 08/22/24 17:32 80 ml ONCE ONE Administration Sodium Chloride 10 ml 08/22/24 17:02 Sodium Chloride 0.9% 10ml Flush Syringe IV 09/21/24 17:01 NEEDED PRN Maintain IV Site Sodium Chloride 50 ml 08/22/24 17:31 08/22/24 17:32 0.9 % Sodium Chloride 50 Ml Vial IV 08/22/24 17:32 50 ml ONCE ONE Administration Sodium Chloride 10 ml 08/22/24 17:31 08/22/24 17:32 Sodium Chloride 0.9% 10ml Syr (Rad Only) IV 08/22/24 17:32 10 ml ONCE ONE Administration ORDERS Category Date Time Status CT angio head Stat Cat Scan 08/22/24 17:[address] angio neck Stat Cat Scan 08/22/24 17:[address] head/brain wo con Stat Cat Scan 08/22/24 17:02 Completed CXR --portable [XR chest portable] Stat Exams 08/22/24 17:05 Completed Activated Partial Thrombo Time Stat Lab 08/22/24 17:05 Completed Complete Blood Count Auto Diff Stat Lab 08/22/24 17:05 Completed Comprehensive Metabolic Panel Stat Lab 08/22/24 17:05 Completed Ethyl Alcohol Stat Lab 08/22/24 17:05 Completed Lipid Panel Stat Lab 08/22/24 17:05 Completed Prothrombin Time INR Stat Lab 08/22/24 17:05 Completed Troponin I Stat Lab 08/22/24 17:05 Completed VBG [Venous Blood Gas] Stat RT 08/22/24 17:13 Completed ECG Request Stat Y 08/22/24 17:02 Ordered Medical Decision Narrative: In summary, patient is a 59-year-old male PMHx hemiplegia, CVA, dysphagia, history of sepsis, history of respiratory failure with hypoxia, diabetes type 2, hypertension, COPD, hyperlipidemia who presents to the ED from the alf via EMS. EMS reports that alf stated patient's left arm appeared weak. jail reports that they noticed these changes yesterday however thought that they became worse today. They state that patient has residual right sided weakness and right facial droop from his previous CVA which is why he is in the alf. Denies additional complaints. Denies any falls or injuries. Denies fever, chills, body aches, chest pain, shortness of breath. Upon initial evaluation, patient has a right-sided facial droop, right upper and lower extremity weakness. States this is residual from previous stroke. Patient is alert, oriented to person and situation, disoriented to place. Patient states that he does feel different . Upon arrival, patient is wearing his 2 L of oxygen however sat is 88 to 90%, patient has a cough. Family arrived at bedside, states patient has previous right-sided deficits from his stroke in 2009. She states that he is only in the alf for rehab. She states that from her perspective, patient is at his baseline other than possible progressive weakness of the right side. She states that they have had a in the family in the past few days it has been a stressful time for them. Differential diagnosis includes CVA, stroke recrudescence, TIA, PNA, pneumothorax, infectious process, among others. Will proceed with ED stroke alert protocol involving CTs. Labs reviewed, CBC unremarkable for any leukocytosis, stable H&H. VBG normal pH, normal CO2, PO2 86.9. Patient has a left pneumonia on his chest x-ray. CTs and CTA unremarkable for any acute changes. I feel this may be stroke recrudescence due to recent stress and new diagnosis of pneumonia. Patient will most likely need an MRI. Starting IV antibiotics for pneumonia. Patient and family agreeable to admission. <Fatmata Diaz, DO - Last Filed: 08/22/24 23:48> Vital Signs: 08/22/24 16:59 08/22/24 16:59 08/22/24 18:00 Temperature 97.4 F L Temperature Source Oral Pulse Rate 76 81 Pulse Rate [Right] 74 Respiratory Rate 22 22 Blood Pressure 129/85 108/79 L Blood Pressure [Right Arm] 129/85 Blood Pressure Mean [Right Arm] 99 02 Sat by Pulse Oximetry 88 L 90 L 94 L Oxygen Delivery Method Room Air Oxygen Flow Rate (LPM) 08/22/24 18:30 08/22/24 19:35 08/22/24 21:35 Temperature 98.4 F Temperature Source Oral Pulse Rate 70 76 Pulse Rate [Right] Respiratory Rate 18 22 Blood Pressure 127/72 133/88 Blood Pressure [Right Arm] Blood Pressure Mean [Right Arm] 02 Sat by Pulse Oximetry 95 94 L Oxygen Delivery Method Nasal Cannula Nasal Cannula Oxygen Flow Rate (LPM) 2 Lab Data Lab Results 08/22/24 17:05: WBC 8.8, RBC 4.54 L, Hgb 13.8 L, Hct 40.2 L, MCV 88.5, MCH 30.4, MCHC 34.3, RDW 13.0, Plt Count 337, MPV 10.7 H, Neut % (Auto) 64.6, Lymph % (Auto) 22.2, [place] % (Auto) 8.5, Eos % (Auto) 3.6, Baso % (Auto) 0.9, Neut # (Auto) 5.7, Lymph # (Auto) 2.0, [place] # (Auto) 0.8, Eos # (Auto) 0.3, Baso # (Auto) 0.1, PT 11.6, INR 1.05, APTT 29.1, Sodium 136, Potassium 4.3, Chloride 104, Carbon Dioxide 28, Anion Gap 8.3, BUN 20, Creatinine 1.00, Estimated Creat Clear 88, Estimated GFR 77, Est GFR ( Amer) 93, Glucose 108 H, Calcium 9.6, Total Bilirubin 0.6, AST 36, ALT 38, Alkaline Phosphatase 126, Troponin I < 0.01, Total Protein 7.6, Albumin 3.9, Globulin 3.7 H, Albumin/Globulin Ratio 1.1, Triglycerides 77, Cholesterol 122 L, LDL Cholesterol Direct 61.83 L, VLDL Cholesterol 15, HDL Cholesterol 27 L, Cholesterol/HDL Ratio 4.5 H, Plasma/Serum Alcohol < 10 08/22/24 17:13: VBG pH 7.40, VBG pCO2 43.1, VBG pO2 86.9 H, VBG HCO3 26.2, VBG Total CO2 27.5 H, VBG O2 Saturation 96.4 H, VBG Base Excess 1.5, VBG Lactic Acid 1.9 Orders (Tests/Meds): ED MEDICATIONS Discontinued Medications Generic Name Dose Route Start Last Admin Trade Name Freq PRN Reason Stop Dose Admin Ceftriaxone Sodium 1 gm/ 50 mls @ 100 mls/hr 08/22/24 19:08 08/22/24 19:23 Sodium Chloride IV 08/22/24 19:37 100 mls/hr ONCE ONE Administration Azithromycin 500 mg/ Sodium 250 mls @ 250 mls/hr 08/22/24 19:15 08/22/24 20:08 Chloride IV 09/01/24 19:14 250 mls/hr Q24H ÁNGELA Administration Iopamidol 80 ml 08/22/24 17:31 08/22/24 17:32 Iopamidol-370 (76%);100ml Bottle IV 08/22/24 17:32 80 ml ONCE ONE Administration Sodium Chloride 10 ml 08/22/24 17:02 Sodium Chloride 0.9% 10ml Flush Syringe IV 09/21/24 17:01 NEEDED PRN Maintain IV Site Sodium Chloride 50 ml 08/22/24 17:31 08/22/24 17:32 0.9 % Sodium Chloride 50 Ml Vial IV 08/22/24 17:32 50 ml ONCE ONE Administration Sodium Chloride 10 ml 08/22/24 17:31 08/22/24 17:32 Sodium Chloride 0.9% 10ml Syr (Rad Only) IV 08/22/24 17:32 10 ml ONCE ONE Administration ORDERS Category Date Time Status CT angio head Stat Cat Scan 08/22/24 17:[address] angio neck Stat Cat Scan 08/22/24 17:[address] head/brain wo con Stat Cat Scan 08/22/24 17:02 Completed CXR --portable [XR chest portable] Stat Exams 08/22/24 17:05 Completed Activated Partial Thrombo Time Stat Lab 08/22/24 17:05 Completed Complete Blood Count Auto Diff Stat Lab 08/22/24 17:05 Completed Comprehensive Metabolic Panel Stat Lab 08/22/24 17:05 Completed Ethyl Alcohol Stat Lab 08/22/24 17:05 Completed Lipid Panel Stat Lab 08/22/24 17:05 Completed Prothrombin Time INR Stat Lab 08/22/24 17:05 Completed Troponin I Stat Lab 08/22/24 17:05 Completed VBG [Venous Blood Gas] Stat RT 08/22/24 17:13 Completed ECG Request Stat Y 08/22/24 17:02 Ordered ECG Data Tracing #1: I reviewed this ECG and interpreted as documented below: Normal sinus rhythm with a ventricular of [address] changes concerning for ischemia. Normal axis and intervals. ECG initial impression date: 08/22/24 ECG initial impression time: 17:19 Medical Decision Narrative: In summary, patient is a 59-year-old male PMHx hemiplegia, CVA, dysphagia, history of sepsis, history of respiratory failure with hypoxia, diabetes type 2, hypertension, COPD, hyperlipidemia who presents to the ED from the alf via EMS. EMS reports that alf stated patient's left arm appeared weak. jail reports that they noticed these changes yesterday however thought that they became worse today. They state that patient has residual right sided weakness and right facial droop from his previous CVA which is why he is in the alf. Denies additional complaints. Denies any falls or injuries. Denies fever, chills, body aches, chest pain, shortness of breath. Upon initial evaluation, patient has a right-sided facial droop, right upper and lower extremity weakness. States this is residual from previous stroke. Patient is alert, oriented to person and situation, disoriented to place. Patient states that he does feel different . Upon arrival, patient is wearing his 2 L of oxygen however sat is 88 to 90%, patient has a cough. Family arrived at bedside, states patient has previous right-sided deficits from his stroke in 2009. She states that he is only in the alf for rehab. She states that from her perspective, patient is at his baseline other than possible progressive weakness of the right side. She states that they have had a in the family in the past few days it has been a stressful time for them. Differential diagnosis includes CVA, stroke recrudescence, TIA, PNA, pneumothorax, infectious process, among others. Will proceed with ED stroke alert protocol involving CTs. Labs reviewed, CBC unremarkable for any leukocytosis, stable H&H. VBG normal pH, normal CO2, PO2 86.9. Patient has a left pneumonia on his chest x-ray. CTs and CTA unremarkable for any acute changes. I feel this may be stroke recrudescence due to recent stress and new diagnosis of pneumonia. Patient will most likely need an MRI. Starting IV antibiotics for pneumonia. Patient and family agreeable to admission. DO Joe: I was consulted by the VERNA, and we discussed the complexity of the problems being addressed. I approved the treatment and management plan for this patient's care in the emergency department, thus performing a substantive portion of the medical decision making. Patient arrives with last known well yesterday, concern for possible stroke recrudescence with worsening of prior stroke symptoms, but nothing obviously focal on exam. Even if this were CVA, he is outside of window for thrombolytics or thrombectomy given that symptoms likely started yesterday. He has acute on chronic respiratory failure with pneumonia on x-ray. I had interactive discussion with Dr. Ignacio and Dr. Cho with neurosurgery and neurology at who advised no acute large vessel occlusion, no acute stroke noted on imaging, though they do see the prior strokes. They recommended optimizing medical management, and patient is already on aspirin and statin. We consulted hospitalist for admission of recrudescence of prior stroke symptoms in the setting of acute on chronic respiratory failure with pneumonia. They advised that given that the patient has oxygen support at the nursing facility and he already is on medical management for prior stroke, they did not recommend admission. They recommended discharge back to nursing facility. Given this, patient was discharged with prescriptions for Augmentin and azithromycin after receiving IV Rocephin and azithromycin here. Strict return precautions were given. was updated with regard to plan of care. Fatmata Diaz DO Critical Care <Lauren Stinson APRN - Last Filed: 08/22/24 20:50> Critical Care Time Critical Care Time: No <Fatmata Diaz DO - Last Filed: 08/22/24 23:48> Critical Care Time Critical Care Time: Yes Attestation: On 08/22/24, the high probability of a clinically significant, sudden or life threatening deterioration of the following system(s) required my full and direct attention, intervention and personal management. The time I documented below is in addition to time spent performing reported procedures but includes the following listed in this critical care notation. Total Time Total Critical Care Time: 45
--- NOTE | 2024-08-22 17:05 | XR_ITS ---
PROCEDURE INFORMATION: Exam: XR Chest Exam date and time: 08/22/2024 5:35 PM Age: 59 years old Clinical indication: Cough TECHNIQUE: Imaging protocol: Radiologic exam of the chest. Views: 1 view. COMPARISON: CT ANGIO NECK 08/22/2024 5:31 PM FINDINGS: Lungs: Mild right basilar atelectasis. Left basilar atelectasis and/or infiltrate. Pleural spaces: Unremarkable. No pleural effusion. No pneumothorax. Heart/Mediastinum: Unremarkable. No cardiomegaly. Vasculature: Aortic calcification. Bones/joints: Osteopenia. Degenerative change involving the shoulders and spine. IMPRESSION: Left basilar atelectasis and/or infiltrate.
--- NOTE | 2024-08-22 17:07 | PC.NURSE ---
notified RT of VBG
[2024-08-22 17:14] LABS: Lactate Venous 1.9 mmol/L (0.4-2.0); VBG Base Excess 1.5 mmol/L (-2.4-2.3); VBG HCO3 26.2 mmol/L (23-30); VBG Oxygen Saturation 96.4 % (50-70); VBG PCO2 43.1 mmol/L (35-51); VBG PO2 86.9 mmol/L (28-40); VBG Total CO2 27.5 mmol/L (23-27)
[2024-08-22 17:16] LABS: Basophils # 0.1 K/mm3 (0-0.2); Basophils % 0.9 % (0.1-2.0); Eosinophils # 0.3 Kmm3 (0.0-0.4); Eosinophils % 3.6 % (0.1-12.0); Hematocrit 40.2 % (42.0-52.0); Hemoglobin 13.8 g/dL (14.1-18.0); Immature Granulocytes # 0.02 10^3uL; Immature Granulocytes % 0.2 %; Lymphocytes % 22.2 % (10-50); Mean Corpuscular HGB Conc 34.3 g/dL (31.8-35.4); Mean Corpuscular Hemoglobin 30.4 pg (27.0-31.2); Mean Corpuscular Volume 88.5 fl (80-94); Mean Platelet Volume 10.7 fl (7.4-10.4); Monocytes # 0.8 K/mm3 (0.1-1.0); Monocytes % 8.5 % (1.7-9.3); Neutrophils # 5.7 K/mm3 (1.8-7.8); Neutrophils % 64.6 % (37.0-80.0); Nucleated Red Blood Cells # 0 10^3/uL; Nucleated Red Blood Cells % 0 %; Platelet Count 337 K/mm3 (142-424); Red Blood Count 4.54 M/mm3 (4.60-6.20); Red Cell Distribution Width-SD 42.5 fL; White Blood Count 8.8 K/mm3 (4.8-10.8)
--- OUTSIDE RECORDS SUMMARY | 2024-08-22 17:17 | XMS_ITS | Encounter Summary ---
Author Organization Healthcare Address [address] [place] [address] Care Team Providers Care Differential Tester Name Role Phone Iain Yuen MD Primary Care Provider [phone] Encounter Details Date Type Department Care Team (Late Contact Info) Description 07/28/2024 Orders Only External Location [address] [place] [address] Provider, External Social History Tobacco Use Types Packs/Day Years [...] Description 09/07/2024 1:15 PM EDT Office Visit [facility] [address] [place] [address] Millie Kothari MD [address] [address] documented as of this encounter Procedures Procedure Name Priority Date/Time Associated Diagnosis Comments CT OUTSIDE IMAGES 07/28/2024 1:39 AM EDT documented in this encounter Results * CT OUTSIDE IMAGES (07/28/2024 1:39 AM EDT) Anatomical Region Laterality Modality Computed Tomogra phy 07/28/2024 1:39 AM EDT us External Provider IMG CT PROCEDURES Final Result documented in this encounter Visit Diagnoses Not on filedocumented in this encounter Additional Health Concerns Assessment Noted Time A fall risk assessment has been complete d for the patient 07/16/2024 2:29 PM EDT A Body Mass Index follow-up plan has been documented for the patient 07/23/2024 8:42 AM EDT documented as of this encounter Care Teams Differential Tester Relationship Specialty Start Date End Date Iain Yuen MD [id number] [place] [address] PCP - General 07/14/20 documented as of this encounter
--- OUTSIDE RECORDS SUMMARY | 2024-08-22 17:17 | XMS_ITS | Encounter Summary ---
Author Organization [facility] Address [address] [place] [address] Care Team Providers Care [employer] Mathematics Teacher Name Role Phone Iain Yuen MD Primary Care Provider [phone] Encounter Details Date Type Department Care Team (Latest Contact Info) Description 07/16/2024 Travel Social History Tobacco Use Types Packs/Day Years [...] Description 09/07/2024 1:15 PM EDT Office Visit [facility] [address] [place] [address] Millie Kothari MD [address] [address] documented as of this encounter Visit Diagnoses Not on filedocumented in this encounter Additional Health Concerns Assessment Noted Time A fall risk assessment has been complete d for the patient 07/16/2024 2:29 PM EDT A Body Mass Index follow-up plan has been documented for the patient 07/23/2024 8:42 AM EDT documented as of this encounter Care Teams [employer] Mathematics Teacher Relationship Specialty Start Date End Date Iain Yuen MD [address] [place] [address] PCP - General 07/14/20 documented as of this encounter
--- OUTSIDE RECORDS SUMMARY | 2024-08-22 17:18 | XMS_ITS | Encounter Summary ---
Author Organization [facility] Address [address] [place] [address] Care Team Providers Care Hospice Director Name Role Phone Iain Yuen MD Primary Care Provider [phone] Reason for Visit * Reason Comments Med Refill Encounter Details Date Type Department Care Team ([facility] st Contact Info) Description 06/24/2022 Refill Professional [facility] [address], [address] [place] [address] Gideon Lemon MD [address] [place] [address] Social History Tobacco Use Types Packs/Day Years Used Date Smoking Tobacco: Every Day Cigarettes 1 30 Smokeless Tobacco: Never Alcohol Use Standard Drinks/Week Comments Not Currently 0 (1 standard drink = 0.6 oz pur e alcohol) PHQ-2 Answer Date Recorded Patient Health Questionnaire-2 Score 5 09/21/2021 Sex and Gender Information Value Date Recorded Sex Assigned at Male 01/30/2021 11:09 PM EST Legal Sex Male 7:53 PM EDT Gender Identity Male 01/30/2021 11:09 PM EST Sexual Orientation Straight 01/30/2021 11 :09 PM EST documented as of this encounter Miscellaneous Notes * Telephone Encounter - Wanda Smith LPN - 06/24/2022 8:05 AM EDT This patient is not seen in the Nephrology clinic. documented in this encounter Plan of Treatment Upcoming Encounters Date Type Department Care Team (Late st Contact Info) Description 09/07/2024 1:15 PM EDT Office Visit [facility] [address] [place] [address] Millie Kothari MD [address] [place] [address] documented as of this encounter Visit Diagnoses Not on filedocumented in this encounter Additional Health Concerns Assessment Noted Time A fall risk assessment has been complete d for the patient 12/05/2021 2:36 PM EDT documented as of this encounter Care Teams Hospice Director Relationship Specialty Start Date End Date Iain Yuen MD [address] [place] [address] PCP - General 07/14/20 documented as of this encounter
--- OUTSIDE RECORDS SUMMARY | 2024-08-22 17:18 | XMS_ITS | Encounter Summary ---
Author Organization Healthcare Address [address] [place] [address] Care Team Providers Care Care Advocate Name Role Phone Iain Yuen MD Primary Care Provider [phone] Encounter Details Date Type Department Care Team (Late Contact Info) Description 07/28/2024 Orders Only External Location [address] [place] [address] Provider, External Social History Tobacco Use Types [...] Description 09/07/2024 1:15 PM EDT Office Visit [facility] [address] [place] [address] Millie Kothari MD [address] [address] documented as of this encounter Procedures Procedure Name Priority Date/Time Associated Diagnosis Comments CT OUTSIDE IMAGES 07/28/2024 12:23 AM EDT documented in this encounter Results * CT OUTSIDE IMAGES (07/28/2024 12:23 AM EDT) Anatomical Region Laterality Modality Computed Tomogra phy 07/28/2024 12:2 3 AM EDT us External Provider IMG CT [...] documented as of this encounter Care Teams Care Advocate Relationship Specialty Start Date End Date Iain Yuen MD [address] [place] [id number] PCP - General 07/14/20 documented as of this encounter
--- OUTSIDE RECORDS SUMMARY | 2024-08-22 17:18 | XMS_ITS | Encounter Summary ---
Author Organization Healthcare Address [address] [place] [address] Care Team Providers Care Leveler Name Role Phone Iain Yuen MD Primary Care Provider [phone] Encounter Details Date Type Department Care Team (Late st Contact Info) Description 08/04/2024 Telephone [place] [facility] [address], [address] [place] [address] Merline Cobb, PA [address] [place] [address] Social History Tobacco Use Types [...] encounter Miscellaneous Notes * Telephone Encounter - Chet Shelby Iris - 08/04/2024 3:11 PM EDT Called patient to confirm 6-9 appt. Spoke with patient's Mayelin, she said he is still in the hospital, please call to reschedule. documented in this encounter Plan of Treatment Upcoming Encounters Date Type Department Care Team (Late st Contact Info) Description 09/07/2024 1:15 PM EDT Office Visit [facility] [address] [facility] [place] [address] Millie Kothari MD 110 [facility] [address] [place] [address] documented as of this encounter Visit Diagnoses Not on filedocumented in this encounter Additional Health Concerns Assessment Noted Time A fall risk assessment has been complete d for the patient 07/16/2024 2:29 PM EDT A Body Mass Index follow-up plan has been documented for the patient 07/23/2024 8:42 AM EDT documented as of this encounter Care Teams Leveler Relationship Specialty Start Date End Date Iain Yuen MD [address] [place] [id number] PCP - General 07/14/20 documented as of this encounter
--- OUTSIDE RECORDS SUMMARY | 2024-08-22 17:18 | XMS_ITS | Encounter Summary ---
Author Organization [facility] Address [address] [place] [address] Care Team Providers Care Groundman/Lineman Name Role Phone Iain Yuen MD Primary Care Provider [phone] Reason for Visit * Reason Comments Med Refill Encounter Details Date Type Department Care Team (Late st Contact Info) Description 01/21/2022 Refill Professional [facility] [address], [address] [place] [address] Gideon Lemon MD [address] [place] [address] Panuveitis of both eyes; Retinal vasculitis of both eyes Social History Tobacco Use [...] encounter Miscellaneous Notes * Telephone Encounter - Gideon Lemon MD - 01/21/2022 11:40 AM EST One month supply, further refills only after the lab work since he is on high dose. documented in this encounter Plan of Treatment Upcoming Encounters Date Type Department Care Team (Late st Contact Info) Description 09/07/2024 1:15 PM EDT Office Visit [facility] [address] [place] [address] Millie Kothari MD 110 [facility] [address] [place] [address] documented as of this encounter Visit Diagnoses Diagnosis Panuveitis of both eyes Panuveitis Retinal vasculitis of both eyes Retinal vasculitis documented in this encounter Additional Health Concerns Assessment Noted Time A fall risk assessment has been complete d for the patient 12/05/2021 2:36 PM EDT documented as of this encounter Care Teams Groundman/Lineman Relationship Specialty Start Date End Date Iain Yuen MD [address] [place] [id number] PCP - General 07/14/20 documented as of this encounter
--- OUTSIDE RECORDS SUMMARY | 2024-08-22 17:18 | XMS_ITS | Clinical Summary ---
Author Organization [facility] Address [address] [place] [address] Care Team Providers Care Fire Chief Deputy Name Role Phone Iain Yuen MD Primary Care Provider Allergies No known active allergies Medications aspirin 325 MG tablet Take 1 tablet (325 mg) by mouth 1 (one) time each day. 1 Active citalopram (CeleXA) 40 MG tablet Take 1 tablet (40 mg) by mouth 1 (one) time each day. 0 Active clopidogrel (Plavix) 75 MG tablet Take by mouth 1 (one) time each day. 0 Active lisinopril-hydr oCHLOROthiazide 10-12.5 MG tablet Take 1 tablet by mouth daily. 0 Active ezetimibe (Zetia) 10 MG tablet Take 1 tablet (10 mg) by mouth 1 (one) time each day. 1 Active tamsulosin (Flomax) 0.4 MG 24 hr capsule Take 1 capsule (0.4 mg) by mouth 1 (one) time each day. 1 Active ascorbic acid (Vitamin C) 500 MG tablet Take 1 tablet (500 mg) by mouth 1 (one) time each day. Active cholecalciferol (Vitamin D-3) 50 MCG (2000 UT) capsule Take 1 capsule (2,000 Units) by mouth 1 (one) time each day. Active Fluticasone-Ume clidin-Vilant (Trelegy Ellipta) 200-62.5-25 MCG/INH aerosol powder if needed. Active rosuvastatin (Crestor) 20 MG tablet Take 1 tablet (20 mg) by mouth every night. 1 Active pantoprazole (Protonix) 40 MG EC tablet TAKE ONE TABLET BY MOUTH DAILY. DO NOT CRUSH, CHEW OR SPLIT. 90 tablet 3 Active potassium chloride CR (Klor-Con) 10 MEQ ER tablet 3 Active triamcinolone (Kenalog) 0.5 % cream APPLY A THIN LAYER OF CREAM TOPICALLY TO AFFECTED AREA TWICE DAILY 3 Active Multiple Vitamin (multivitamin) tablet Take 1 tablet by mouth 1 (one) time each day. Active ARIPiprazole (Abilify) 2 MG tablet Take 1 tablet (2 mg) by mouth 1 (one) time each day. Active Adalimumab (Humira Pen) 40 MG/0.4ML Pen-injector KitIndications: Panuveitis of both eyes,Retinal vasculitis of both eyes Inject 0.4 mL (40 mg) under the skin every 14 (fourteen) days. 2 each 5 3 Active Additional Information Patient not taking.Reported on 07/16/2024 methotrexate 2.5 MG tabletIndicatio ns:Panuveitis of both eyes,Retinal vasculitis of both eyes Take 10 tablets (25 mg total) by mouth 1 (one) time per week. Follow directions carefully, and ask to explain any part you do not understand. Take exactly as directed. 40 tablet 3 3 Active folic acid (Folvite) 1 MG tablet Take 1 tablet (1,000 mcg) by mouth 1 (one) time each day. 30 tablet 3 3 Active atorvastatin (Lipitor) 80 MG tablet Take 1 tablet by mouth daily. Active oxybutynin (Ditropan) 5 MG tablet Take 1 tablet by mouth 2 times a day. Active buPROPion XL (Wellbutrin XL) 150 MG 24 hr tablet Take 1 tablet by mouth daily. Do not crush, chew, or split. 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), right 09/13/2021 Age-related cataract of both eyes 01/31/2021 Epiretinal membrane (ERM) of both eyes 1 Anatomical narrow angle of both eyes 01/22/2021 High risk medication use 11/07/2020 Blurry vision 10/16/2020 Cystoid macular edema of both eyes 08/30/2020 Panuveitis 07/05/2020 Low back pain 06/30/2020 Retinal vasculitis of both eyes 04/09/2020 Encounters Date Type Department Care Team Description 08/04/2024 Telephone [place] [facility] [address] [place] [address] Merline Cobb PA 07/28/2024 Orders Only External Location [address] [place] [address] Provider, External 07/28/2024 Orders Only External Location [address] [place] [address] Provider, External 07/28/2024 Orders Only External Location [address] [place] [address] Provider, External 07/23/2024 8:45 AM EDT Ancillary Procedure [facility] [address] [place] [address] 07/16/2024 3:15 PM EDT Consult [facility] [address] [place] [address] Millie Kothari MD Panuveitis of both eyes (Primary Dx); Retinal vasculitis of both eyes; Cystoid macular edema of both eyes 07/16/2024 Travel from Last 3 Months Family History Medical History Relation Name Comments Cataracts Father Stroke Father Cancer Father's Brother Cataracts Mother Diabetes Mother Hypertension Mother Stroke Mother Cancer Mother's Brother Relation Name Status Comments Father Father's Brother Mother Mother's Brother Social History Tobacco Use Types Packs/Day Years [...] Orientation Straight 01/30/2021 11 :09 PM EST Last Filed Vital Signs Vital Sign Reading Time Taken Comments Blood Pressure 82/62 12/17/2022 10:38 AM EDT Pulse 99 12/17/2022 10:38 AM EDT Temperature 36.1 C (97 F) 12/17/2022 10:38 AM EDT Respiratory Rate - - Oxygen Saturation 96% 05/21/2021 1:31 PM EDT Inhaled Oxygen Concentration - - Weight 76.9 kg (169 lb 8.5 oz) 12/17/2022 10:38 AM EDT Height 182.9 cm (6') 12/17/2022 10:38 AM EDT Body Mass Index 22.99 12/17/2022 10:38 AM EDT Plan of Treatment Upcoming Encounters Date Type Department Care Team (Late st Contact Info) Description 09/07/2024 1:15 PM EDT Office Visit [facility] [address] [place] [address] Millie Kothari MD [address] [address] Health Maintenance Due Date Last Done Comments [facility]-Medicare Annual Wellness (AWV) 1966 [facility]-Infant/Child/Adol SDOH Screenings 1966 [facility]- SDOH Screenings 1984 [facility]-Adult SDOH Screenings 1984 [facility]-Hepatitis B Vaccines (1 of 3 - 19+ 3-dose series) 1985 CT Colonography 2011 Colonoscopy 2011 FIT-DNA 2011 FIT 2011 FOBT 2011 Sigmoidoscopy 2011 [facility]-Colorectal Cancer Screening 2011 [facility]-Lung Cancer Screening 2016 [facility]-Depression Screening 12/18/2023 12/17/2022 [id number]-67 Vaccine (6 - Mixed Product risk ) 10/26/2024 04/28/2024, 12/11/2022, 03/14/2021, Additional history exists [facility]-Influenza Vaccine (Season Ended) 2024 12/11/2022, 03/14/2021, 01/16/2019 [facility]-DTaP,Tdap,and Td Vaccines (2 - Td or Tdap) 08/22/2029 08/23/2019 [facility]-Hepatitis A Vaccines Aged Out 05/06/2018, 08/2017 No longer eligible based on patient's age to complete this topic [facility]-Hepatitis C Screening Completed 05/17/2020 [facility]-HIV Screening Completed 07/25/2020 [facility]-Zoster Vaccines Completed 04/23/2023, [facility]-Pneumococcal Vaccine: 50+ Years Completed 04/28/2024, 08/23/2019 HPV Vaccines Aged Out No longer eligi ble based on patient's age to complete this topic [facility]-HIB Vaccines Aged Out No longer e ligible based on patient's age to complete this topic [facility]-IPV Vaccines Aged Out No longer e ligible based on patient's age to complete this topic [facility]-Rotavirus Vaccines Aged Out No lo nger eligible based on patient's age to complete this topic Procedures Procedure Name Priority Date/Time Associated Diagnosis Comments CT OUTSIDE IMAGES 07/28/2024 1:[address] OUTSIDE IMAGES 07/28/2024 12: [address] OUTSIDE IMAGES 07/28/2024 12: 19 AM EDT OCT, RETINA - OU - BOTH EYES Routine 07/23/2024 8:41 AM EDT Panuveitis of both eyes HIV 1/2 ANTIBODY/ANTIGEN SCREEN WITH REFLEX TO HIV I/II DIFFERENTIATION Routine 07/25/2020 2:33 PM EDT ACUTE HEPATITIS PANEL Routine 05/17/2020 3:32 PM EDT from Last 3 Months or Most Recently Relevant to Health Maintenance Results * CT OUTSIDE IMAGES (07/28/2024 1:39 AM EDT) Only the most recent of3 resultswithin the time period is included. Anatomical Region Laterality Modality Computed Tomogra phy 07/28/2024 1:39 AM EDT us External Provider IMG CT PROCEDURES Final Result * OCT, Retina - OU - Both [...] Millie Kothari MD OPHTH TOMOGRAPHY Final Result * HIV 1 & 2 Antibody/Antigen Screen (07/25/2020 2:33 PM EDT) HIV 1 Result NONREACTIVE Screening for HIV 1 and 2 antibodies is NONREACTIVE. No confirmatory testing is required. [facility]QUEST 07/25/2020 2:33 PM EDT 07/25/2020 3:52 PM EDT Augustine Ann MD LAB BLOOD ORDERABLES Final Resul t SUNQUEST * Acute Hepatitis Panel (05/17/2020 3:32 PM EDT) Hepatitis B Surf Antigen NEGATIVE Reference Value: Negative [facility]QUEST Hepatitis C Antibody NEGATIVE Reference Range: Negative [facility]QUEST Hepatitis A Antibody IgM NEGATIVE Reference Value: Negative [facility]QUEST External Hepatitis B Core IgM (HBCM) NEGATIVE Reference Value: Negative [facility]QUEST 05/17/2020 3:32 PM EDT 05/17/2020 5:09 PM EDT us Lala Anderson MD LAB BLOOD ORDERABLES Final Re sult SUNQUEST from Last 3 Months or Most Recently Relevant to Health Maintenance [place] [address] [place] [address] MEDICARE Care Teams Fire Chief Deputy Relationship Specialty Start Date End Date Iain Yuen MD [address] [place] [address] PCP - General 07/14/20
--- OUTSIDE RECORDS SUMMARY | 2024-08-22 17:18 | XMS_ITS | Encounter Summary ---
Author Organization Healthcare Address [address] [place] [address] Care Team Providers Care Journeyman Painter Name Role Phone Iain Yuen MD Primary Care Provider [phone] Encounter Details Date Type Department Care Team (Late Contact Info) Description 07/28/2024 Orders Only External Location [address] [place] [address] Provider, External Social History Tobacco Use Types [...] Description 09/07/2024 1:15 PM EDT Office Visit [facility] [address] [place] [address] Millie Kothari MD [address] [address] documented as of this encounter Procedures Procedure Name Priority Date/Time Associated Diagnosis Comments CT OUTSIDE IMAGES 07/28/2024 12:19 AM EDT documented in this encounter Results * CT OUTSIDE IMAGES (07/28/2024 12:19 AM EDT) Anatomical Region Laterality Modality Computed Tomogra phy 07/28/2024 12:1 9 AM EDT us External Provider IMG CT [...] documented as of this encounter Care Teams Journeyman Painter Relationship Specialty Start Date End Date Iain Yuen MD [address] [place] [id number] PCP - General 07/14/20 documented as of this encounter
--- NOTE | 2024-08-22 17:20 | ECG_ITS ---
APPROVED REPORT Exam: Resting ECG HR:75 bpm ECG Measurements Heart Rate 75 AXES WA 151 P 60 QRSd 86 QRS 81 QT 394 T 81 QTc 422 Conclusion SINUS RHYTHM LOW QRS VOLTAGE IN PRECORDIAL LEADS [QRS DEFLECTION < 1.0 mV IN CHEST LEADS] No STEMI Electronically signed by : YANDEL NEWELL, 08/23/2024 21:18:04
[2024-08-22 17:21] LABS: Alanine Aminotransferase 38 U/L (12-78); Albumin Level 3.9 g/dl (3.5-5.0); Albumin/Globulin Ratio 1.1 (1.1-1.8); Alkaline Phosphatase 126 U/L (38-126); Anion Gap 8.3 mEq/L (5-15); Aspartate Amino Transferase 36 U/L (17-59); Bilirubin,Total 0.6 mg/dl (0.2-1.3); Blood Urea Nitrogen 20 mg/dl (9-20); Calcium 9.6 mg/dl (8.4-10.2); Carbon Dioxide 28 mmol/L (22.0-30.0); Chloride 104 mmol/L (98-107); Chol/HDL Ratio 4.5 (1-3.5); Cholesterol 122 mg/dl (140-200); Creatinine Clearance Estimated 88 mL/min (50-200); Estimated Glomerular Filt Rate 77 ml/min (>60); GFR (African American) 93 ML/MIN (>60); Globulin 3.7 g/dL (1.3-3.2); Glucose 108 mg/dl (74-100); HDL Cholesterol 27 mg/dl (40-60); Potassium 4.3 mmoL/L (3.5-5.1); Sodium 136 mmol/L (136-145); Total Protein,Serum 7.6 g/dl (6.3-8.2); Triglycerides 77 mg/dl (30-150); VLDL Cholesterol 15 mg/dL (0-40)
--- NOTE | 2024-08-22 17:22 | PC.NURSE ---
pt placed on 3lnc to keep saturation>90
[2024-08-22 17:24] LABS: Activated Partial Thrombo Time 29.1 seconds (22.8-30.6); INR 1.05 (0.9-1.1); Prothrombin Time 11.6 seconds (10.1-12.5)
[2024-08-22 17:32] LABS: Direct LDL Cholesterol 61.83 mg/dL (100-129)
[2024-08-22] MEDS: SODIUM CHLORIDE 0.9% 10ML SYR (RAD ONLY) 10 ML IV (17:32)
[2024-08-22] MEDS: 0.9 % SODIUM CHLORIDE 50 ML VIAL IV (17:32)
[2024-08-22] MEDS: IOPAMIDOL-370 (76%);100ML BOTTLE 80 ML IV (17:32)
[2024-08-22 17:44] LABS: Ethyl Alcohol < 10 mg/dl (0-10); Troponin I < 0.01 ng/ml (0.00-0.034)
--- NOTE | 2024-08-22 17:58 | PC.NURSE ---
Myself and DEAMRCO Noel went and changed the patient as well as put him on a purewick. Patient is in bed and states that he does not need anything at this time.
[2024-08-22 18:00] VITALS: BP 108/79; PULSE 81; RESP 22; O2SAT 94
[2024-08-22 18:30] VITALS: BP 127/72; PULSE 70; RESP 18; O2SAT 95
--- NOTE | 2024-08-22 18:48 | PC.NURSE ---
I placed a pressure dressing with bacitracin, xeroform, 4x4 and koban on the pts wound post sutures.
--- NOTE | 2024-08-22 19:16 | PC.NURSE ---
Rounded on PT. Ice water given at this time per request. VS stable on monitor. No other needs voiced at this time. Call light in reach.
[2024-08-22] MEDS: CEFTRIAXONE SODIUM 1 GM in 0.9 % SODIUM CHLORIDE 50 ML IV (19:23)
--- NOTE | 2024-08-22 19:31 | PC.NURSE ---
Hospitalist at bedside.
--- NOTE | 2024-08-22 19:34 | PC.NURSE ---
Titrated O2 to 2L N c. O2 sat at 94%.
[2024-08-22 19:35] VITALS: O2SAT 94
--- NOTE | 2024-08-22 19:42 | PC.NURSE ---
Spoke with LTC facility for baseline mental status. All answer answered.
[2024-08-22] MEDS: AZITHROMYCIN 500 MG in 0.9 % SODIUM CHLORIDE 250 ML 250 MG IV (20:08)
[2024-08-22 21:35] VITALS: BP 133/88; PULSE 76; RESP 22; TEMP 36.9; O2SAT 95
== END 2024-08-22 21:37 | disposition home or self-care (01) ==
PROVIDERS: Nurse Practitioner; Emergency Provider Emergency Medicine
DX: J18.9 Pneumonia, unspecified organism (principal); R29.818 Other symptoms and signs involving the nervous system; I10 Essential (primary) hypertension; J44.9 Chronic obstructive pulmonary disease, unspecified; E11.9 Type 2 diabetes mellitus without complications; E78.5 Hyperlipidemia, unspecified; Z86.73 Personal history of transient ischemic attack (TIA), and cerebral infarction without residual deficits
CPT/HCPCS: 70450; 70496; 70498; 71045; 80053; 80061; 80320; 82803; 84484; 85025; 85610; 85730; 93005; 96365; 96366; 99291; J0456; J0696; J7050; Q9967